=== PATIENT | female | born 1975 | race Two or more races ===

== ENCOUNTER → 2016-12-24 | Outpatient (REF) | payer BC ==
[~2016-12-24] MED LIST: ALIN500T2 PO; [UNRECOGNIZED DRUG - CODE] PO; bcp
[2016-12-24 16:05] LABS: ALBUMIN 3.3 GM/DL (3.2-5.2); ALBUMIN/GLOBULIN RATIO 1.14 (1.00-1.93); ALKALINE PHOSPHATASE 80 U/L (45-117); ALT/SGPT 26 U/L (12-78); AST/SGOT 26 U/L (7-37); BILIRUBIN,DIRECT 0.5 MG/DL (0.0-0.2); BILIRUBIN,TOTAL 1.6 MG/DL (0.2-1.0); IMMUNOGLOBULIN G 1010 MG/DL (681-1648); IMMUNOGLOBULIN M 146 MG/DL (40-230); TOTAL PROTEIN 6.2 GM/DL (6.4-8.2)
[2016-12-28 14:11] LABS: IgG SERUM (part of Subclasses) 933 mg/dL (700-1600); IgG Subclass 1 588 mg/dL (248-810); IgG Subclass 2 314 mg/dL (130-555); IgG Subclass 3 61 mg/dL (15-102); IgG Subclass 4 14 mg/dL (2-96)
== END ==
LOC: M SFHCPLAZ 13:49
PROVIDERS: ATTEND Internal Medicine Infectious Disease
DX: A07.2 Cryptosporidiosis (principal)

== ENCOUNTER 2017-10-25 19:20 | Emergency (ER) | payer BC ==
[2017-10-25] MEDS ORDERED: ACETAMINOPHEN TAB 650MG DOSE (2X325MG) PO (20:30)
[2017-10-25 21:59] LABS: CONTROL LINE UCG INT CTR LINE PRESENT; URINE PREG TEST NEGATIVE (NEGATIVE)
[2017-10-25 22:07] LABS: BASO % 0.4 % (0.0-1.0); EOS # 0.1 10^3/uL (0.0-0.50); HEMATOCRIT 36.3 % (36.0-47.0); HEMOGLOBIN 13.5 g/dl (12.0-15.5); IMMATURE GRANULOCYTE % 0.3 % (0-3.0); LYMPH # 2.1 10^3/uL (1.5-4.5); LYMPH % 29.2 % (24.0-44.0); MEAN CORPUSCULAR HEMOGLOBIN 33.2 pg (27.0-33.0); MEAN CORPUSCULAR VOLUME 89.2 fl (80.0-96.0); MONO # 0.4 10^3/uL (0.0-0.8); MONO % 5.1 % (0.0-5.0); NEUTROPHILS # 4.4 10^3/uL (1.8-7.7); PLATELET COUNT, AUTOMATED 254 10^3/uL (150-450); RED BLOOD COUNT 4.07 10^6/uL (4.00-5.40); RED CELL DISTRIBUTION WIDTH 13.3 % (11.5-14.5)
[2017-10-25 22:35] LABS: MEAN CORPUSCULAR HGB CONC 37.2 g/dl (32.0-36.5)
[2017-10-25 22:40] LABS: ANION GAP 7 MEQ/L (8-16); BLOOD UREA NITROGEN 10 MG/DL (7-18); CALCIUM LEVEL 8.8 MG/DL (8.5-10.1); CARBON DIOXIDE LEVEL 26 MEQ/L (21-32); CHLORIDE LEVEL 108 MEQ/L (98-107); CREATININE FOR GFR 0.57 MG/DL (0.55-1.30); GLOMERULAR FILTRATION RATE > 60.0 (>58); GLUCOSE, FASTING 83 MG/DL (70-100); POTASSIUM SERUM 3.8 MEQ/L (3.5-5.1); SODIUM LEVEL 141 MEQ/L (136-145)
== END 2017-10-26 00:13 | disposition home or self-care (01) ==
LOC: M ED 10-26 00:13
DX: N93.9 Abnormal uterine and vaginal bleeding, unspecified (principal); D25.9 Leiomyoma of uterus, unspecified; N83.202 Unspecified ovarian cyst, left side; M54.5 Low back pain
CPT/HCPCS: 76856

== ENCOUNTER 2018-04-22 10:42 | Day surgery (SDC) | payer BC ==
[~2018-04-22] VITALS: Ht 162.6 cm; Wt 56.2 kg
[~2018-04-22 10:42] MED LIST changes: +ALIN1SUS2 PO; +IBUP-1022 PO; +MULTCAP PO; -[UNRECOGNIZED DRUG - CODE] PO
[2018-04-22 11:19] LABS: URINE PREG TEST NEGATIVE (NEGATIVE)
[2018-04-22 11:29] LABS: HEMATOCRIT 37.3 % (36.0-47.0); HEMOGLOBIN 13.7 g/dl (12.0-15.5); MEAN CORPUSCULAR HEMOGLOBIN 33.3 pg (27.0-33.0); MEAN CORPUSCULAR HGB CONC 36.7 g/dl (32.0-36.5); MEAN CORPUSCULAR VOLUME 90.5 fl (80.0-96.0); PLATELET COUNT, AUTOMATED 252 10^3/uL (150-450); RED BLOOD COUNT 4.12 10^6/uL (4.00-5.40); WHITE BLOOD COUNT 6.3 10^3/uL (4.0-10.0)
[2018-04-22] MEDS ORDERED: LR 1,000 ML IV ONE (11:30)
[2018-04-22] MEDS ORDERED: LIDOCAINE 2% INJ 100 MG/5 ML SDV (FOR ANES.) As Ordered ONE (11:42)
[2018-04-22] MEDS ORDERED: PROPOFOL 200 MG/20 ML VIAL As Ordered ONE (11:42)
[2018-04-22] MEDS ORDERED: MIDAZOLAM INJ 2 MG/2 ML VIAL (J2250) As Ordered ONE (11:43)
[2018-04-22] MEDS ORDERED: fentaNYL 100 MCG/2 ML INJECTION (J3010) As Ordered ONE (11:43)
[2018-04-22] MEDS ORDERED: dexameTHASONE 4 MG/ML 1ML VIAL (J1100) As Ordered ONE (13:20)
[2018-04-22] MEDS ORDERED: ONDANSETRON 4MG/2ML VIAL (J2405) As Ordered ONE (13:20)
[2018-04-22] MEDS ORDERED: METOCLOPRAMIDE INJ 10MG/2ML VIAL (J2765) As Ordered ONE (13:20)
[2018-04-22] MEDS ORDERED: KETOROLAC 60 MG/2 ML VIAL (J1885) As Ordered ONE (13:21)
[2018-04-22] MEDS ORDERED: ONDANSETRON 4MG/2ML VIAL (J2405) IV PRN (14:15)
[2018-04-22] MEDS ORDERED: NORCO, ANEXSIA 5/325MG TABLET (HYDROcodone/ACETAMINOPHEN) PO PRN (14:15)
[2018-04-22] MEDS ORDERED: PERCOCET 5MG/325MG TAB PO PRN (14:15)
[2018-04-22] MEDS ORDERED: LR 1,000 ML IV SCH ×2 (14:15)
[2018-04-22] MEDS ORDERED: fentaNYL 100 MCG/2 ML INJECTION (J3010) IV PRN (14:15)
[2018-04-22 15:00] VITALS: BP 118/68
--- NOTE | 2018-04-22 15:12 | RO ---
DATE OF PROCEDURE: 04/22/2018 PREPROCEDURE DIAGNOSIS: Menorrhagia. POSTPROCEDURE DIAGNOSIS: Menorrhagia. OPERATIVE PROCEDURES: Hysteroscopy, dilation and curettage (D and C), NovaSure endometrial ablation. SURGEON: Medhat Wing MD OPERATIONS EXPERT: ANESTHESIA: General endotracheal. ESTIMATED BLOOD LOSS: Minimal FINDINGS: Normal appearing endometrial cavity. OPERATIVE SUMMARY: Patient taken to the operating room where general endotracheal anesthesia was induced. She was prepped and draped in a sterile fashion in the dorsal lithotomy position. A speculum was placed in the vagina. The anterior lip of the cervix was grasped with a tenaculum and cervix was dilated with tapered dilators. Diagnostic hysteroscope using normal saline as suspension media was placed through the internal os. Visualization of the endometrial cavity revealed the findings noted above. Sharp curettage was performed and specimens of endometrial curettings were sent to pathology. Hysteroscope was removed. The NovaSure device was assembled and found to be in working order. The device was inserted through the internal os. Endometrial cavity length was calculated at 4.0 cm. Endometrial cavity width was 2.5 cm. Total power setting was 77 [place]. Successful cavity assessment was performed. Coagulation was initiated. Total coagulation time was 1 minute 50 seconds. The NovaSure device was removed. The hysteroscope was placed back into the endometrial cavity and excellent coagulation affect was noted with sparing of the cervix. All instruments were removed. Sponge and instrument counts were correct.
[2018-04-22] MEDS ORDERED: OXYC1TAB23 PO (17:55)
== END 2018-04-22 15:04 | disposition home or self-care (01) ==
LOC: M SDC 10:42
PROVIDERS: ATTEND Specialist
DX: N92.0 Excessive and frequent menstruation with regular cycle (principal)
CPT/HCPCS: 36415; 58563; 84703; 85027; 88305; J1100; J1885; J2250; J2405; J2765; J3010

== ENCOUNTER → 2018-05-23 | Outpatient (CLI) | payer BC ==
[~2018-05-23] MED LIST changes: +OXYC1TAB23 PO; +PROHANCE 279.3MG/ML 15ML VIAL (A9576) As Ordered ONE
--- NOTE | 2018-05-27 13:42 | REP ---
MRI ABDOMEN AND LIVER WITHOUT AND WITH IV GADOLINIUM: HISTORY: Benign neoplasm of the liver. Adenoma of the liver, hemangioma of the liver, gallstones. Comparison sonography has been retrieved from [facility] dated November 12, 2017. Comparison MRI study has been retrieved from November 26, 2017, also from [facility]. MR TECHNIQUE: Axial and coronal imaging planes are utilized for T1- and T2-weighted scans. Sequences include spin-echo, fast spin-echo, diffusion, gradient echo, in and [id number], and dynamically acquired sequential post gadolinium enhanced images. The gadolinium enhancement dose is 10 mL of intravenous ProHance. MRI FINDINGS: The liver again demonstrates two focal liver lesions. The right lobe lesion measures 2.3 x 1.9 x 2.4 cm today. It is felt to be unchanged in size. The left lobe lesion measures 3.1 x 2.3 x 2.6 cm. This is felt to be unchanged as well by my measurement on the November 26, 2017 prior study. No new focal liver lesion is appreciated. There is a tiny cyst in the spleen. The liver is not enlarged. The spleen is at the upper range of normal in size measuring 12.8 cm in greatest diameter. This is unchanged. The tiny splenic cyst is unchanged. No adrenal lesion is seen. No renal abnormality is observed. A filling defect is again noted within the gallbladder lumen consistent with gallstone. No pancreatic abnormality is appreciated. Diffusion weighted scans show no additional abnormality. The liver lesions bold show low T1 of and high T2 signal intensity, as before. On dynamically acquired post gadolinium enhanced images with intravenous ProHance, initial arterial phase acquisition shows peripheral centripetal nodular pattern of enhancement in both the left lobe and the right lobe lesion as previously described. The right lobe lesion is largely filled in by 2 minutes. Persistent nodular peripheral discontinuous enhancement is seen in the left lobe lesion on the 2-minute with progressive enhancement. 5- and 10-minute delayed images show nearly complete enhancement of the left lobe lesion and persistent blood pool enhancement in the right lobe lesion. No washout is observed with the ProHance on delayed images. IMPRESSION: Two stable benign liver lesions. On today's MRI study, both lesions are compatible with benign hemangiomas. In any event, they are unchanged, and no new lesion is seen. Cholelithiasis again noted. Electronically Signed by Wiley Bell MD 05/27/2018 08:03 P
== END ==
LOC: M RAD 16:19
PROVIDERS: ATTEND Physician Assistant
DX: D13.4 Benign neoplasm of liver (principal); D18.03 Hemangioma of intra-abdominal structures; K80.20 Calculus of gallbladder without cholecystitis without obstruction
CPT/HCPCS: 74183; A9576

== ENCOUNTER → 2020-12-17 | Outpatient (CLI) | payer BC ==
[~2020-12-17] MED LIST changes: -PROHANCE 279.3MG/ML 15ML VIAL (A9576) As Ordered ONE
--- NOTE | 2020-12-18 19:14 | SLEEPHOME ---
DATE: 12/17/2020 ORDERED BY: SACHIN Arreola Diagnostic home sleep testing was performed due to concern for the obstructive sleep apnea syndrome in this patient with a history of snoring. For testing, a Nox T3 respiratory monitoring device was used. Continuous record was made of pulse, oxygen saturation, air flow, chest and abdominal strain, and body position. Nine hours and 59 minutes of data were reviewed. There were 7 hours and 12 minutes marked as time in bed. During the interval marked time in bed, there were only 15 respiratory events identified of 10 seconds in duration or greater for a respiratory event index of 2.1. The events were more frequent in the supine posture. Baseline pulse rate was 70 beats per minute. Pulse rate ranged 56 to 99. Baseline saturation was 96%. Lowest oxygen saturation recorded was 91%. Testing was performed in both the supine and nonsupine positions. IMPRESSION: Equivocal diagnostic home sleep test with minor respiratory patterning in the supine position. RECOMMENDATION: Sleep position for avoidance of the supine posture may be helpful. Should sleep symptoms persist or worsen, referral for in-laboratory nocturnal polysomnography is more sensitive to identify mild apneic disease. cc: ROLANDA SHEIKH MD
== END ==
LOC: M SLEEP HO 11:59
PROVIDERS: ATTEND Nurse Practitioner Family
DX: R06.83 Snoring (principal)

== ENCOUNTER 2021-01-06 10:19 | Emergency (ER) | payer BC ==
[~2021-01-06] VITALS: Ht 162.6 cm; Wt 55.0 kg
[2021-01-06 10:20] VITALS: BP 130/71
--- OUTSIDE RECORDS SUMMARY | 2021-01-06 10:26 | CCD | Clinical Summary ---
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 [employer] Name Role Phone [facility] Unavailable [phone] Deidre VENTURA, Bashir Unavailable [phone] Melanie SAFETY NET MAKER, Rebecca PP [phone] [facility] Unavailable [phone] Reason for Referral No Reason for Referral Recorded Reason for Visit and Chief Complaint Chart Update Problems Includes: Problems addressed during this encounter and other active Problems All Visits Onset Date - Time Resolved Date - Time Provider Co ndition Status Risk: Obstructive Sleep Apnea Syndrome 08/13/2020 - 9:29AM Mary L Ray DO Active Hypertrophy of Breast 07/11/2020 - 6:37PM Mary L Ray DO Active Hyperlipidemia 07/11/2020 - 6:13PM Mary L Ray DO Act marek Acrochordon 12/27/2019 - 12:00AM Mary L Ray DO Acti ve Fatigue 01/03/2019 - 12:00AM Mary L Ray DO Acti ve Arthralgias Multiple Sites 01/03/2019 - 12:00AM Mary L Ray DO Active Note: following with [facility] see 01/20/19 note; rheumatology note 08/23/19 states no clear autoimmune disorder despite pos SUAD Cholelithiasis Without Cholecystitis 12/26/2018 - 12:00AM Jane Asher NP Active Note: seen on U/S 12/26/18; up to 9mm. Fatty Liver 12/26/2018 - 12:00AM Jane Asher NP Act marek Renal Neoplasm Benign Angiomyolipoma 12/26/2018 - 12:00AM Jane Asher SAFETY NET MAKER Active Note: right kidney seen on U /S/ 12/26/18 Rectal Bleeding 07/07/2018 - 12:00AM Mary L Ray DO A ctive Dysfunctional Uterine Bleeding 12/03/2017 - 12:00AM Am mikaela L Ray DO Active Uterine Neoplasm, Benign - Leiomyoma 12/03/2017 - 12:00AM Mary L Ray DO Active Liver Neoplasm, Benign - Hepatic Adenoma 11/26/2017 - 12:00AM Mary L Ray DO Active Note: 2 cm x 2 cm right lobe liver seen on MRI 11/26/17, U/S done 12/26/18 shows 2 right lobe lesions: 3.1x3.4x2.1cm and 2.4w2g6dm; 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; last US of liver showed stable adenoma and hemangioma 12/13/19, followed by GI yearly Hemangioma Intra-abdominal Structures 11/26/2017 - 12:00AM Mary L Ray DO Active Note: 2.6 x 2 cm left lobe l iver seen on MRI 11/26/17 Ovarian Cyst Left 11/10/2017 - 12:00AM Mary L Ray DO Active Note: seen on sono from Ryann moreira ordered 10/25/17 by outside provider, one is 5cm and one is 3cm; needs [employer] follow-up Screen Malignant Neoplasm Cervix 09/17/2016 - 12:00AM Mary L Ray DO Active Note: last pap 09/17/16; needs repeat in 5 years Visit For: Screening Exam For Human Papillomavirus (Hpv) 017 - 12:00AM Mary L Ray DO Active Dysplastic Nevus 06/05/2016 - 12:00AM Mary L Ray DO Active Acne 04/23/2016 - 12:00AM Mary L Ray DO Acti ve Note: treated by derm for ad ult acne Vitamin D Deficiency 04/23/2016 - 12:00AM Mary L Ray DO Active Warts Verruca 04/23/2016 - 12:00AM Mary L Ray DO Act marek Visit For: Screening Exam Malignant Neoplasm Breast 04/23/2016 - 12:00AM Mary L Ray DO Active Note: needs annual MRI breas t w/ mammo due to fam Hx in Sept Plan of Treatment Future Appointments Date Time Location Provider H Adult Prophy 03/07/2021 4:15PM [facility] Jennifer Bryan Jil doreen [facility] 07/15/2021 7:00PM [facility] Rebecca bello SAFETY NET MAKER Assessments Includes: Assessments from this encounterNo Assessments Recorded Instructions Includes: Instructions from this encounterNo Instructions Recorded Medical Equipment - Implanted Devices Includes: Current DevicesNo Medical Equipment Recorded Medications Includes: Medications discussed during this encounter and other current Medicati ons Current Medications (continue as prescribed) Clindamycin Phosphate 1% External Gel 10/30/2020 - Provider: Marie Robles NP Diagnosis: as directed; apply topically to face once daily Collagen Hydrolysate (Bovine) Powder 08/22/2020 Pro vider: Diagnosis: QC Tumeric Complex 500 MG Oral Capsule 08/22/2020 P rovider: Diagnosis: Benzoyl Peroxide 5% External Gel 04/04/2020 Provide r: Mary Valdez DO Diagnosis: as directed; apply topically to face once daily Medications Administered Includes: Administered Medications from this encounterNo Administered Medications Recorded Vital Signs Includes: Vital Signs from this encounterNo Vital Signs Recorded For Specified Dates Results Includes: Results discussed during this encounterNo Results Recorded For Specified Dates History of Present Illness Includes: History of Present Illness from this encounterNo History of Present Illness Recorded Social History No Social History Recorded - Smoking Status Unknown Procedures and Surgical History Includes: Procedures from this encounterNo Procedures For Specified Dates. No Surgical History Recorded Medical History Includes: Medical History addressed during this encounterNo Medical History Recorded Family History Includes: Family History addressed during this encounterNo Family History Recorded Review of Systems Includes: Review of Systems from this encounterNo Review of Systems Recorded Mental Status Includes: Mental Status from this encounterNo Mental Status Recorded Functional Status Includes: Functional Status from this encounterNo Functional Status Recorded Physical Exam Includes: Physical Exam from this encounterNo Physical Exam Recorded Immunizations Includes: Immunizations addressed during this encounterNo Immunizations Recorded Allergies Includes: Active AllergiesNo Known Allergies Encounters Encounter Provider Location Date Check-In Time Check-Out Time D iagnosis Chart Update Ashanti Jacobs RN 11/14/2020 1:59PM 11:59PM Insurance Includes: Active Insurance Policies Plan Name Member ID Group # Subscriber Relationship Effective Da emely 1 - [employer] bs [phone] [id number] Jaime Pierson D 02/15/2017 - Unknown 2 - D Principal [id number] Jaime Pierson Advance Directives Includes: Current Advance Directives Directive Pat Aware Third Democrat Effective Date Reviewed Status packet given Pt Bill of Rights, Priv Prac, Ad Dir Yes 07/07/2018 Current and Verified Note: Pt declined AD packet Ebola Screening Performed Yes 11/16/2019 Current and Verified Note: Within the last month, have you traveled outside of the [place]? - NO Health Concerns Includes: Health Concerns addressed during this encounterNo Active Health Concerns Recorded Goals Includes: Goals addressed during this encounterNo Active Goals Recorded Interventions Includes: Interventions addressed during this encounterNo Interventions Recorded Evaluations & Outcomes Includes: Evaluations & Outcomes addressed during this encounterNo Outcomes Recorded
--- OUTSIDE RECORDS SUMMARY | 2021-01-06 10:26 | CCD | Continuity of Care Document ---
Author Arely Lopez N.PHoney Organization Unknown Address [address] [place] [address] Phone [phone] Care Team Providers Care District Service Manager Name Role Phone Mary Valdez D.O. AUT[facility] [phone] [facility] Unavailable Problems Description No Information Available Social History Type Date Description Comments Sex Unknown ETOH Use 1 A Month Tobacco Use Start: Unknown Non Smoker Smoking Status Reviewed: 11/26/20 Non Smoker Exercise Type/Frequency walking, hiking Allergies and adverse reactions Description No Known Drug Allergies Medications Active Medications SIG Qnty Indications Ordering Provide r Date Collagen Ultra Capsules 1 tab by mouth every day Unknown Immunizations Description No Information Available Vital Signs Date Vital Result Comment 11/26/2020 8:05am BP Systolic 116 mmHg BP Diastolic 64 mmHg Heart Rate 77 /min O2 % BldC Oximetry 100 % Height 64 inches 5'4" Weight 124.50 lb BMI (Body Mass Index) 21.4 kg/m2 [place] Body Weight 120 lb Neck Circumference in inches 13 Montgomery Score 5 Weight 56.473 kg BSA (Body Surface Area) 1.60 m2 05/06/2018 10:51am BP Systolic 102 mmHg BP Diastolic 82 mmHg Height 64 inches 5'4" Weight 127.00 lb BMI (Body Mass Index) 21.8 kg/m2 [place] Body Weight 120 lb Weight 57.607 kg BSA (Body Surface Area) 1.61 m2 Results Description No Information Available Procedures Date Code Description Status 11/26/2020 21376 Office/Outpatient New Low MDM 30 -44 Minutes Completed Medical Devices Description No Information Available Encounters Type Date Location Provider Dx Diagnosis Office Visit 11/26/2020 8:00a [facility] Kayley Chung, N.P. R06.83 Snoring R40.0 Somnolence Assessments Date Code Description Provider 11/26/2020 R06.83 Snoring Katie Chung N .Joshua 11/26/2020 R40.0 Somnolence Katie Chung N Lien Plan of Treatment Future Appointment(s):* 01/15/2021 9:45 am - Katie Chung N.P. at [facility] * 12/16/2020 8:00 pm - [facility] 11/26/2020 - Katie Chung NGarry.* R06.83 Snoring * R40.0 Somnolence * * New Orders:* Sleep Home Sleep Test, Ordered: 11/26/20 * Comments:* - For evaluation of sleep apnea syndrome symptoms, home sleep test will be arranged. - We have discussed what is to be expected during a home sleep test. * Follow up:* 1. Follow up after testing. Functional Status Description No Information Available Mental Status Description No Information Available Referrals Refer to Reason for Referral Status Appt Date Katie Chung F.N.P. ? THANH Scheduled 11/26/2020 [facility] [address] [place], [place] [address] [phone]
--- OUTSIDE RECORDS SUMMARY | 2021-01-06 10:27 | CCD ---
Author Author [facility] Organization [facility] Address Unknown Phone Unavailable Care Team Providers Care Production Supply Equipment Tender Name Role Phone Giovanna HUITRON MD Unavailable Unavailable Giovanna HUITRON MD Unavailable Unavailable Giovanna HUITRON MD Unavailable Unavailable Giovanna HUITRON MD Unavailable Unavailable Giovanna HUITRON MD Unavailable Unavailable Giovanna HUITRON MD Unavailable Unavailable Giovanna HUITRON MD Unavailable Unavailable Giovanna HUITRON MD Unavailable Unavailable Giovanna HUITRON MD Unavailable Unavailable Giovanna HUITRON MD Unavailable Unavailable Giovanna HUITRON MD Unavailable Unavailable Giovanna HUITRON MD Unavailable Unavailable Giovanna HUITRON MD Unavailable Unavailable Giovanna HUITRON MD Unavailable Unavailable Giovanna HUITRON MD Unavailable Unavailable Giovanna HUITRON MD Unavailable Unavailable Giovanna HUITRON MD Unavailable Unavailable Giovanna HUITRON MD Unavailable Unavailable Giovanna HUITRON MD Unavailable Unavailable Giovanna HUITRON MD Unavailable Unavailable Giovanna HUITRON MD Unavailable Unavailable Giovanna HUITRON MD Unavailable Unavailable TOMY, K LONA VENTURA Unavailable Unavailable TOMY, K LONA VENTURA Unavailable Unavailable TOMY, K LONA VENTURA Unavailable Unavailable TOMY, K LONA VENTURA Unavailable Unavailable TOMY, K LONA VENTRUA Unavailable Unavailable TOMY, K LONA VENTURA Unavailable Unavailable TOMY, K LONA VENTURA Unavailable Unavailable TOMY, K LONA VENTURA Unavailable Unavailable TOMY, K LONA VENTURA Unavailable Unavailable TOMY, K LONA VENTURA Unavailable Unavailable TOMY, K LONA VENTURA Unavailable Unavailable TOMY, K LONA VENTURA Unavailable Unavailable TOMY, K LONA VENTURA Unavailable Unavailable TOMY, K LONA VENTURA Unavailable Unavailable TOMY, K LONA VENTURA Unavailable Unavailable TOMY, K LONA VENTURA Unavailable Unavailable TOMY, K LONA VENTURA Unavailable Unavailable TOMY, K LONA VENTURA Unavailable Unavailable TOMY, K LONA VENTURA Unavailable Unavailable OTMY, K LOAN VENTURA Unavailable Unavailable TOMY, K LONA VENTURA Unavailable Unavailable TOMY, K OLNA VENTURA Unavailable Unavailable TOMY, K LONA VENTURA Unavailable Unavailable TOMY, K LONA VENTURA Unavailable Unavailable TOMY, K LONA VENTURA Unavailable Unavailable TOMY, K LONA VENTURA Unavailable Unavailable TOMY, K LONA VENTURA Unavailable Unavailable TOMY, K LONA VENTURA Unavailable Unavailable TOMY, K LONA VENTURA Unavailable Unavailable TOMY, K LONA VENTURA Unavailable Unavailable TOMY, K LONA VENTURA Unavailable Unavailable TOMY, K LONA VENTURA Unavailable Unavailable TOMY, K LONA VENTURA Unavailable Unavailable TOMY, K LONA VENTURA Unavailable Unavailable TOMY, Giovanna ZAMORANO MD Unavailable Unavailable Ray, L Mary DO Unavailable Unavailable Ray, L Mary DO Unavailable Unavailable Ray, L Mary DO Unavailable Unavailable Ray, L Mary DO Unavailable Unavailable Ray, L Mary DO Unavailable Unavailable Ray, L Mary DO Unavailable Unavailable Ray, L Mary DO Unavailable Unavailable Ray, L Mary DO Unavailable Unavailable Ray, L Mary DO Unavailable Unavailable Ray, L Mary DO Unavailable Unavailable Ray, L Mary DO Unavailable Unavailable Ray, L Mary DO Unavailable Unavailable Ray, L Amry DO Unavailable Unavailable Ray, L Mary DO Unavailable Unavailable Ray, L Mary DO Unavailable Unavailable Ray, L Mary DO Unavailable Unavailable Ray, L Mary DO Unavailable Unavailable Ray, L Mary DO Unavailable Unavailable Ray, L Mary DO Unavailable Unavailable Ray, L Mary DO Unavailable Unavailable Ray, L Mary DO Unavailable Unavailable Ray, L Mary DO Unavailable Unavailable Ray, L Mary DO Unavailable Unavailable Ray, L Mary DO Unavailable Unavailable Ray, L Mary DO Unavailable Unavailable Ray, L Mary DO Unavailable Unavailable Ray, L Mary DO Unavailable Unavailable Ray, L Mary DO Unavailable Unavailable Ray, L Mary DO Unavailable Unavailable Ray, L Mary DO Unavailable Unavailable Ray, L Mary DO Unavailable Unavailable Ray, L Mary DO Unavailable Unavailable Ray, L Mary DO Unavailable Unavailable Ray, L Mary DO Unavailable Unavailable Ray, L Mary DO Unavailable Unavailable Ray, L Mary DO Unavailable Unavailable Ray, L Mary DO Unavailable Unavailable Ray, L Mary DO Unavailable Unavailable Ray, L Mary DO Unavailable Unavailable Ray, L Mary DO Unavailable Unavailable Ray, L Mary DO Unavailable Unavailable Ray, L Mary DO Unavailable Unavailable Ray, L Mary DO Unavailable Unavailable Ray, L Mary DO Unavailable Unavailable Ray, L Mary DO Unavailable Unavailable Ray, L Mary DO Unavailable Unavailable Ray, L Mary DO Unavailable Unavailable Ray, L Mary DO Unavailable Unavailable Ray, L Mary DO Unavailable Unavailable Ray, L Mary DO Unavailable Unavailable Ray, L Mary DO Unavailable Unavailable Ray, L Mary DO Unavailable Unavailable Ray, L Mary DO Unavailable Unavailable Ray, L Mary DO Unavailable Unavailable Ray, L Mary DO Unavailable Unavailable Ray, L Mary DO Unavailable Unavailable Ray, L Mary DO Unavailable Unavailable Ray, L Mary DO Unavailable Unavailable Ray, L Mary DO Unavailable Unavailable Ray, L Mary DO Unavailable Unavailable Ray, L Mary DO Unavailable Unavailable Ray, L Mary DO Unavailable Unavailable Ray, L Mary DO Unavailable Unavailable Ray, L Mary DO Unavailable Unavailable Ray, L Mary DO Unavailable Unavailable Ray, L Mary DO Unavailable Unavailable Ray, L Mary DO Unavailable Unavailable Ray, L Mary DO Unavailable Unavailable Ray, L Mary DO Unavailable Unavailable Ray, L Mary DO Unavailable Unavailable Ray, L Mary DO Unavailable Unavailable Ray, L Mary DO Unavailable Unavailable Ray, L Mary DO Unavailable Unavailable Ray, L Mary DO Unavailable Unavailable Ray, L Mary DO Unavailable Unavailable KANE, MONE OCHOA JUNIOR MECHANICAL ENGINEER-C Unavailable Unavailable KANE, MONE OCHOA JUNIOR MECHANICAL ENGINEER-C Unavailable Unavailable KANE, MONE OCHOA JUNIOR MECHANICAL ENGINEER-C Unavailable Unavailable KANE, MONE OCHOA JUNIOR MECHANICAL ENGINEER-C Unavailable Unavailable KANE, MONE OCHOA JUNIOR MECHANICAL ENGINEER-C Unavailable Unavailable KANE, MONE OCHOA JUNIOR MECHANICAL ENGINEER-C Unavailable Unavailable KANE, MONE OCHOA JUNIOR MECHANICAL ENGINEER-C Unavailable Unavailable KANE, MONE OCHOA JUNIOR MECHANICAL ENGINEER-C Unavailable Unavailable KANE, MONE OCHOA JUNIOR MECHANICAL ENGINEER-C Unavailable Unavailable KANE, MONE OCHOA JUNIOR MECHANICAL ENGINEER-C Unavailable Unavailable KANE, MONE OCHOA JUNIOR MECHANICAL ENGINEER-C Unavailable Unavailable KANE, MONE OCHOA JUNIOR MECHANICAL ENGINEER-C Unavailable Unavailable KANE, MONE OCHOA JUNIOR MECHANICAL ENGINEER-C Unavailable Unavailable KANE, MONE OCHOA JUNIOR MECHANICAL ENGINEER-C Unavailable Unavailable KANE, MONE OCHOA JUNIOR MECHANICAL ENGINEER-C Unavailable Unavailable KANE, MONE OCHOA JUNIOR MECHANICAL ENGINEER-C Unavailable Unavailable KANE, MONE OCHOA JUNIOR MECHANICAL ENGINEER-C Unavailable Unavailable Ray, L Mary DO Unavailable Unavailable Ray, L Mary DO Unavailable Unavailable Ray, L Mary DO Unavailable Unavailable Ray, L Mary DO Unavailable Unavailable Ray, L Mary DO Unavailable Unavailable Ray, L Mary DO Unavailable Unavailable Ray, L Mary DO Unavailable Unavailable Ray, L Mary DO Unavailable Unavailable Ray, L Mary DO Unavailable Unavailable Ray, L Mary DO Unavailable Unavailable Ray, L Mary DO Unavailable Unavailable Ray, L Mary DO Unavailable Unavailable Ray, L Mary DO Unavailable Unavailable Ray, L Mary DO Unavailable Unavailable Ray, L Mary DO Unavailable Unavailable Ray, L Mary DO Unavailable Unavailable Ray, L Mary DO Unavailable Unavailable Ray, L Mary DO Unavailable Unavailable Ray, L Mary DO Unavailable Unavailable Ray, L Mary DO Unavailable Unavailable Ray, L Mary DO Unavailable Unavailable Ray, L Mary DO Unavailable Unavailable Ray, L Mary DO Unavailable Unavailable Ray, L Mary DO Unavailable Unavailable Ray, L Mary DO Unavailable Unavailable Ray, L Mary DO Unavailable Unavailable Ray, L Mary DO Unavailable Unavailable Ray, L Mary DO Unavailable Unavailable Ray, L Mary DO Unavailable Unavailable Ray, L Mary DO Unavailable Unavailable Ray, L Mary DO Unavailable Unavailable Ray, L Mary DO Unavailable Unavailable Ray, L Mary DO Unavailable Unavailable Ray, L Mary DO Unavailable Unavailable Ray, L Mary DO Unavailable Unavailable Ray, L Mary DO Unavailable Unavailable Ray, L Mary DO Unavailable Unavailable Ray, L Mary DO Unavailable Unavailable Ray, L Mary DO Unavailable Unavailable Ray, L Mary DO Unavailable Unavailable Ray, L Mary DO Unavailable Unavailable Ray, L Mary DO Unavailable Unavailable Ray, L Mary DO Unavailable Unavailable Ray, L Mary DO Unavailable Unavailable Ray, L Mary DO Unavailable Unavailable Ray, L Mary DO Unavailable Unavailable Ray, L Mary DO Unavailable Unavailable Ray, L Mary DO Unavailable Unavailable Ray, L Mary DO Unavailable Unavailable Ray, L Mary DO Unavailable Unavailable Ray, L Mary DO Unavailable Unavailable Ray, L Mary DO Unavailable Unavailable Ray, L Mary DO Unavailable Unavailable Ray, L Mary DO Unavailable Unavailable Ray, L Mary DO Unavailable Unavailable Ray, L Mary DO Unavailable Unavailable Ray, L Mary DO Unavailable Unavailable Ray, L Mary DO Unavailable Unavailable Ray, L Mary DO Unavailable Unavailable Ray, L Mary DO Unavailable Unavailable Ray, L Mary DO Unavailable Unavailable Ray, L Mary DO Unavailable Unavailable Ray, L Mary DO Unavailable Unavailable Ray, L Mary DO Unavailable Unavailable Ray, L Mary DO Unavailable Unavailable Ray, L Mary DO Unavailable Unavailable Ray, L Mary DO Unavailable Unavailable Ray, L Mary DO Unavailable Unavailable Ray, L Mary DO Unavailable Unavailable Ray, L Mary DO Unavailable Unavailable Ray, L Mary DO Unavailable Unavailable Ray, L Mary DO Unavailable Unavailable Ray, L Mary DO Unavailable Unavailable Ray, L Mary DO Unavailable Unavailable Ray, L Mary DO Unavailable Unavailable Darline BAL MD Unavailable Unavailable Darline BAL MD Unavailable Unavailable Darline BAL MD Unavailable Unavailable Darline BAL MD Unavailable Unavailable Darline BAL MD Unavailable Unavailable Darline BAL MD Unavailable Unavailable Darline BAL MD Unavailable Unavailable Darline BAL MD Unavailable Unavailable Darline BAL MD Unavailable Unavailable Darline BAL MD Unavailable Unavailable Darline BAL MD Unavailable Unavailable Darline BAL MD Unavailable Unavailable Darline BAL MD Unavailable Unavailable Darline BAL MD Unavailable Unavailable Darline BAL MD Unavailable Unavailable Darline BAL MD Unavailable Unavailable Darline BAL MD Unavailable Unavailable Darline BAL MD Unavailable Unavailable Darline BAL MD Unavailable Unavailable Darline BAL MD Unavailable Unavailable Darline BAL MD Unavailable Unavailable Darline BAL MD Unavailable Unavailable Darline BAL MD Unavailable Unavailable Darline BAL MD Unavailable Unavailable Darline BAL MD Unavailable Unavailable Darline BAL MD Unavailable Unavailable Darline BAL MD Unavailable Unavailable Darline BAL MD Unavailable Unavailable Darline BAL MD Unavailable Unavailable Darline BAL MD Unavailable Unavailable Darline BAL MD Unavailable Unavailable Darline BAL MD Unavailable Unavailable Darline BAL MD Unavailable Unavailable Darline BAL MD Unavailable Unavailable Darline BAL MD Unavailable Unavailable Darline BAL MD Unavailable Unavailable Darline BAL MD Unavailable Unavailable Darline BAL MD Unavailable Unavailable Darline BAL MD Unavailable Unavailable Darline BAL MD Unavailable Unavailable Darline BAL MD Unavailable Unavailable Darline BAL MD Unavailable Unavailable Darline BAL MD Unavailable Unavailable Darline BAL MD Unavailable Unavailable Darline BAL MD Unavailable Unavailable Darline BAL MD Unavailable Unavailable Darline BAL MD Unavailable Unavailable Darline BAL MD Unavailable Unavailable Darline BAL MD Unavailable Unavailable Darline BAL MD Unavailable Unavailable Darline BAL MD Unavailable Unavailable Darline BAL MD Unavailable Unavailable Darline BAL MD Unavailable Unavailable Darline BAL MD Unavailable Unavailable Darline BAL MD Unavailable Unavailable Darline BAL MD Unavailable Unavailable Darline BAL MD Unavailable Unavailable Darline BAL MD Unavailable Unavailable Darline BAL MD Unavailable Unavailable Darline BAL MD Unavailable Unavailable Darline BAL MD Unavailable Unavailable Darline BAL MD Unavailable Unavailable Darline BAL MD Unavailable Unavailable Darline BAL MD Unavailable Unavailable Darline BAL MD Unavailable Unavailable Darline BAL MD Unavailable Unavailable Darline BAL MD Unavailable Unavailable Darline BAL MD Unavailable Unavailable Darline BAL MD Unavailable Unavailable Darline BAL MD Unavailable Unavailable Darline BAL MD Unavailable Unavailable Darline BAL MD Unavailable Unavailable Darline BAL MD Unavailable Unavailable Darline BAL MD Unavailable Unavailable Darline BAL MD Unavailable Unavailable Darline BAL MD Unavailable Unavailable Darline BAL MD Unavailable Unavailable Darline BAL MD Unavailable Unavailable Darline BAL MD Unavailable Unavailable Darline BAL MD Unavailable Unavailable Darline BAL MD Unavailable Unavailable Darline BAL MD Unavailable Unavailable Darline BAL MD Unavailable Unavailable Darline BAL MD Unavailable Unavailable Darlnie BAL MD Unavailable Unavailable Darline BAL MD Unavailable Unavailable Darline BAL MD Unavailable Unavailable Darline BAL MD Unavailable Unavailable Darline BAL MD Unavailable Unavailable Darline BAL MD Unavailable Unavailable Darline BAL MD Unavailable Unavailable Darline BAL MD Unavailable Unavailable Darline BAL MD Unavailable Unavailable Darline BAL MD Unavailable Unavailable Darline BAL MD Unavailable Unavailable Darline BAL MD Unavailable Unavailable Darline BAL MD Unavailable Unavailable Houston, J Ochoa SALES PRODUCER Unavailable Unavailable Houston, J Ochoa SALES PRODUCER Unavailable Unavailable Houston, J Ochoa SALES PRODUCER Unavailable Unavailable Houston, J Ochoa SALES PRODUCER Unavailable Unavailable Houston, J Ochoa SALES PRODUCER Unavailable Unavailable [place], J Ochoa SALES PRODUCER Unavailable Unavailable [place], J Ochoa SALES PRODUCER Unavailable Unavailable [place], J Ochoa SALES PRODUCER Unavailable Unavailable [place], J Ochoa SALES PRODUCER Unavailable Unavailable [place], J Ochoa SALES PRODUCER Unavailable Unavailable Ray, L Mary DO Unavailable Unavailable Ray, L Mary DO Unavailable Unavailable Ray, L Mary DO Unavailable Unavailable Ray, L Mary DO Unavailable Unavailable Ray, L Mary DO Unavailable Unavailable Ray, L Mary DO Unavailable Unavailable Ray, L Mary DO Unavailable Unavailable Ray, L Mary DO Unavailable Unavailable Ray, L Mary DO Unavailable Unavailable Ray, L Mary DO Unavailable Unavailable Ray, L Mary DO Unavailable Unavailable Ray, L Mary DO Unavailable Unavailable Ray, L Mary DO Unavailable Unavailable Ray, L Mary DO Unavailable Unavailable Ray, L Mary DO Unavailable Unavailable Ray, L Mary DO Unavailable Unavailable Ray, L Mary DO Unavailable Unavailable Ray, L Mary DO Unavailable Unavailable Ray, L Mary DO Unavailable Unavailable Ray, L Mary DO Unavailable Unavailable Ray, L Mary DO Unavailable Unavailable Ray, L Mary DO Unavailable Unavailable Ray, L Mary DO Unavailable Unavailable Ray, L Mary DO Unavailable Unavailable Ray, L Mary DO Unavailable Unavailable Ray, L Mary DO Unavailable Unavailable Ray, L Mary DO Unavailable Unavailable Ray, L Mary DO Unavailable Unavailable Ray, L Mary DO Unavailable Unavailable Ray, L Mary DO Unavailable Unavailable Ray, L Mary DO Unavailable Unavailable Ray, L Mary DO Unavailable Unavailable Ray, L Mray DO Unavailable Unavailable Ray, L Mary DO Unavailable Unavailable Ray, L Mary DO Unavailable Unavailable Ray, L Mary DO Unavailable Unavailable Ray, L Mary DO Unavailable Unavailable Ray, L Mary DO Unavailable Unavailable Ray, L Mary DO Unavailable Unavailable Ray, L Mary DO Unavailable Unavailable Ray, L Mary DO Unavailable Unavailable Ray, L Mary DO Unavailable Unavailable Ray, L Mary DO Unavailable Unavailable Ray, L Mary DO Unavailable Unavailable Ray, L Mary DO Unavailable Unavailable Ray, L Mary DO Unavailable Unavailable Ray, L Mary DO Unavailable Unavailable Ray, L Mary DO Unavailable Unavailable Ray, L Mary DO Unavailable Unavailable Ray, L Mary DO Unavailable Unavailable Ray, L Mary DO Unavailable Unavailable Ray, L Mary DO Unavailable Unavailable Ray, L Mary DO Unavailable Unavailable Ray, L Mary DO Unavailable Unavailable Ray, L Mary DO Unavailable Unavailable Ray, L Mary DO Unavailable Unavailable Ray, L Mary DO Unavailable Unavailable Ray, L Mary DO Unavailable Unavailable Ray, L Mary DO Unavailable Unavailable Ray, L Mary DO Unavailable Unavailable Ray, L Mary DO Unavailable Unavailable Ray, L Mary DO Unavailable Unavailable Ray, L Mary DO Unavailable Unavailable Ray, L Mary DO Unavailable Unavailable Ray, L Mary DO Unavailable Unavailable Ray, L Mary DO Unavailable Unavailable Ray, L Mary DO Unavailable Unavailable Ray, L Mary DO Unavailable Unavailable Ray, L Mary DO Unavailable Unavailable Ray, L Mary DO Unavailable Unavailable Ray, L Mary DO Unavailable Unavailable Ray, L Mary DO Unavailable Unavailable Ray, L Mary DO Unavailable Unavailable Ray, L Mary DO Unavailable Unavailable Ray, L Mary DO Unavailable Unavailable BERNADINE Jacobs, Ashanti Unavailable Duca, A Jennifer SALES PRODUCER-C Unavailable Unavailable Duca, A Jennifer SALES PRODUCER-C Unavailable Unavailable Duca, A Jennifer SALES PRODUCER-C Unavailable Unavailable Duca, A Jennifer SALES PRODUCER-C Unavailable Unavailable Duca, A Jennifer SALES PRODUCER-C Unavailable Unavailable Duca, A Jennifer SALES PRODUCER-C Unavailable Unavailable Duca, A Jennifer SALES PRODUCER-C Unavailable Unavailable Duca, A Jennifer SALES PRODUCER-C Unavailable Unavailable Duca, A Jennifer SALES PRODUCER-C Unavailable Unavailable Duca, A Jennifer SALES PRODUCER-C Unavailable Unavailable Duca, A Jennifer SALES PRODUCER-C Unavailable Unavailable Duca, A Jennifer SALES PRODUCER-C Unavailable Unavailable Duca, A Jennifer SALES PRODUCER-C Unavailable Unavailable Duca, A Jennifer SALES PRODUCER-C Unavailable Unavailable Duca, A Jennifer SALES PRODUCER-C Unavailable Unavailable Duca, A Jennifer SALES PRODUCER-C Unavailable Unavailable Duca, A Jennifer SALES PRODUCER-C Unavailable Unavailable Duca, A Jennifre SALES PRODUCER-C Unavailable Unavailable Duca, A Jennifer SALES PRODUCER-C Unavailable Unavailable Duca, A Jennifer SALES PRODUCER-C Unavailable Unavailable Duca, A Jennifer SALES PRODUCER-C Unavailable Unavailable Duca, A Jennifer SALES PRODUCER-C Unavailable Unavailable Duca, A Jennifer SALES PRODUCER-C Unavailable Unavailable Duca, A Jennifer SALES PRODUCER-C Unavailable Unavailable Duca, A Jennifer SALES PRODUCER-C Unavailable Unavailable Duca, A Jennifer SALES PRODUCER-C Unavailable Unavailable Duca, A Jennifer SALES PRODUCER-C Unavailable Unavailable Duca, A Jennifer SALES PRODUCER-C Unavailable Unavailable Duca, A Jennifer SALES PRODUCER-C Unavailable Unavailable Duca, A Jennifer SALES PRODUCER-C Unavailable Unavailable Duca, A Jennifer SALES PRODUCER-C Unavailable Unavailable Duca, A Jennifer SALES PRODUCER-C Unavailable Unavailable Duca, A Jennifer SALES PRODUCER-C Unavailable Unavailable Duca, A Jennifer SALES PRODUCER-C Unavailable Unavailable Duca, A Jennifer SALES PRODUCER-C Unavailable Unavailable Duca, A Jennifer SALES PRODUCER-C Unavailable Unavailable Duca, A Jennifer SALES PRODUCER-C Unavailable Unavailable Duca, A Jennifer SALES PRODUCER-C Unavailable Unavailable Bal, Sami PA Unavailable Unavailable Bal, Sami PA Unavailable Unavailable Bal, Sami PA Unavailable Unavailable Bla, Sami PA Unavailable Unavailable Bal, Sami PA Unavailable Unavailable Bal, Sami PA Unavailable Unavailable Bal, Sami PA Unavailable Unavailable Bal, Sami PA Unavailable Unavailable Bal, Sami PA Unavailable Unavailable Bal, Sami PA Unavailable Unavailable Bal, Sami PA Unavailable Unavailable Bal, Sami PA Unavailable Unavailable Bal, Sami PA Unavailable Unavailable Bal, Sami PA Unavailable Unavailable Bal, Sami PA Unavailable Unavailable Bal, Sami PA Unavailable Unavailable Bal, Sami PA Unavailable Unavailable Bal, Sami PA Unavailable Unavailable Bal, Sami PA Unavailable Unavailable Bal, Sami PA Unavailable Unavailable Bal, Sami PA Unavailable Unavailable Bal, Sami PA Unavailable Unavailable Bal, Sami PA Unavailable Unavailable Bal, Sami PA Unavailable Unavailable Bal, Sami PA Unavailable Unavailable Bal, Sami PA Unavailable Unavailable Bal, Sami PA Unavailable Unavailable Bal, Sami PA Unavailable Unavailable Bal, Sami PA Unavailable Unavailable Bal, Sami PA Unavailable Unavailable Bal, Sami PA Unavailable Unavailable Bal, Sami PA Unavailable Unavailable Bal, Sami PA Unavailable Unavailable Bal, Sami PA Unavailable Unavailable Bal, Sami PA Unavailable Unavailable Bal, Sami PA Unavailable Unavailable Bal, Sami PA Unavailable Unavailable Bal, Sami PA Unavailable Unavailable Bal, Sami PA Unavailable Unavailable Bal, Sami PA Unavailable Unavailable Bal, Sami PA Unavailable Unavailable Bal, Sami PA Unavailable Unavailable Bal, Sami PA Unavailable Unavailable Bal, Sami PA Unavailable Unavailable Gilma, L Jennifer RDH Unavailable Unavailable Ray, L Mary DO Unavailable Unavailable Ray, L Mary DO Unavailable Unavailable Ray, L Mary DO Unavailable Unavailable Ray, L Mary DO Unavailable Unavailable Ray, L Mary DO Unavailable Unavailable Ray, L Mary DO Unavailable Unavailable Ray, L Mary DO Unavailable Unavailable Ray, L Mary DO Unavailable Unavailable Ray, L Mary DO Unavailable Unavailable Ray, L Mary DO Unavailable Unavailable Ray, L Mary DO Unavailable Unavailable Ray, L Mary DO Unavailable Unavailable Ray, L Mary DO Unavailable Unavailable Ray, L Mary DO Unavailable Unavailable Ray, L Mary DO Unavailable Unavailable Ray, L Mary DO Unavailable Unavailable Ray, L Mary DO Unavailable Unavailable Ray, L Mary DO Unavailable Unavailable Ray, L Mary DO Unavailable Unavailable Ray, L Mray DO Unavailable Unavailable Ray, L Mary DO Unavailable Unavailable Ray, L Mary DO Unavailable Unavailable Ray, L Mary DO Unavailable Unavailable Ray, L Mary DO Unavailable Unavailable Ray, L Mary DO Unavailable Unavailable Ray, L Mary DO Unavailable Unavailable Ray, L Mary DO Unavailable Unavailable Ray, L Mary DO Unavailable Unavailable Ray, L Mary DO Unavailable Unavailable Ray, L Mary DO Unavailable Unavailable Ray, L Mary DO Unavailable Unavailable Ray, L Mary DO Unavailable Unavailable Ray, L Mary DO Unavailable Unavailable Ray, L Mary DO Unavailable Unavailable Ray, L Mary DO Unavailable Unavailable Ray, L Mary DO Unavailable Unavailable Ray, L Mary DO Unavailable Unavailable Ray, L Mary DO Unavailable Unavailable Ray, L Mary DO Unavailable Unavailable Ray, L Mary DO Unavailable Unavailable Ray, L Mary DO Unavailable Unavailable Ray, L Mary DO Unavailable Unavailable Ray, L Mary DO Unavailable Unavailable Ray, L Mary DO Unavailable Unavailable Ray, L Mary DO Unavailable Unavailable Ray, L Mary DO Unavailable Unavailable Ray, L Mary DO Unavailable Unavailable Ray, L Mary DO Unavailable Unavailable Ray, L Mary DO Unavailable Unavailable Ray, L Mary DO Unavailable Unavailable Ray, L Mary DO Unavailable Unavailable Ray, L Mary DO Unavailable Unavailable Ray, L Mary DO Unavailable Unavailable Ray, L Mary DO Unavailable Unavailable Ray, L Mary DO Unavailable Unavailable Ray, L Mary DO Unavailable Unavailable Ray, L Mary DO Unavailable Unavailable Ray, L Mary DO Unavailable Unavailable Ray, L Mary DO Unavailable Unavailable Ray, L Mary DO Unavailable Unavailable Ray, L Mary DO Unavailable Unavailable Ray, L Mary DO Unavailable Unavailable Ray, L Mary DO Unavailable Unavailable Ray, L Mary DO Unavailable Unavailable Ray, L Mary DO Unavailable Unavailable Ray, L Mary DO Unavailable Unavailable Ray, L Mary DO Unavailable Unavailable Ray, L Mary DO Unavailable Unavailable Ray, L Mary DO Unavailable Unavailable Ray, L Mary DO Unavailable Unavailable Ray, L Mary DO Unavailable Unavailable Ray, L Mary DO Unavailable Unavailable Ray, L Mary DO Unavailable Unavailable Ray, L Mary DO Unavailable Unavailable Ray, L Mary DO Unavailable Unavailable Re-disclosure Warning The records that you are about to access may contain information from federally-assisted alcohol or drug abuse programs. If such information is present, then the following federally mandated warning applies: This information has been disclosed to you from records protected by federal confidentiality rules (42 CFR part 2). The federal rules prohibit you from making any further disclosure of this information unless further disclosure is expressly permitted by the written consent of the person to whom it pertains or as otherwise permitted by 42 CFR part 2. A general authorization for the release of medical or other information is NOT sufficient for this purpose. The Federal rules restrict any use of the information to criminally investigate or prosecute any alcohol or drug abuse patient.The records that you are about to access may contain highly sensitive health information, the redisclosure of which is protected by Article 27-F of the [facility] Public Health law. If you continue you may have access to information: Regarding HIV / AIDS; Provided by facilities licensed or operated by the [facility] Office of Mental Health; or Provided by the [facility] Office for People With Developmental Disabilities. If such information is present, then the following [facility] mandated warning applies: This information has been disclosed to you from confidential records which are protected by state law. State law prohibits you from making any further disclosure of this information without the specific written consent of the person to whom it pertains, or as otherwise permitted by law. Any unauthorized further disclosure in violation of state law may result in a fine or alf sentence or both. A general authorization for the release of medical or other information is NOT sufficient authorization for further disc losure. 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 -NO Allergies and Adverse Reactions Type Description Substance Reaction Status Data Source(s ) Allergy to substance No Known Allergies No known allergies (situation ) [facility] ([facility]) Allergy to substance No Known Allergies No known allergies (situation ) [facility] ([facility]) Allergy to substance No Known Allergies No known allergies (situation ) [facility] ([facility]) Allergy to substance No Known Allergies No known allergies (situation ) [facility] ([facility]) Allergy to substance No Known Allergies No known allergies (situation ) [facility] ([facility]) Allergy to substance No Known Allergies No known allergies (situation ) [facility] ([facility]) Allergy to substance No Known Allergies No known allergies (situation ) [facility] ([facility]) Allergy to substance No Known Allergies No known allergies (situation ) [facility] ([facility]) Allergy to substance No Known Allergies No known allergies (situation ) [facility] ([facility]) Encounters Encounter Providers Location Date Indications Data Source(s ) Outpatient Attender: Jennifer MALDONADO 01/30/2021 12:00:00 AM [facility] Outpatient Attender: Jennifer MALDONADO 01/02/2021 12:00:00 AM [facility] Outpatient Attender: Jennifer MALDONADO [id number] 12/16 12:00:00 AM EST - 12/31/2020 11:25:34 AM [facility] Outpatient Attender: LONA HUITRON MDAdmitter: LONA HUITRON MD [id number] 12/24/2020 12:00:00 AM EST - 12/24/2020 12:00:00 AM ES T [facility] macromastia Patient admitted. Outpatient Attender: OCHOA Prieto/Ajit/Isak/Remi lam 11/26/2020 08:00:00 AM EDT [facility] ([facility] actice, ) Outpatient Attender: Sami ABDUL 11/18/2020 07 :45:00 AM EDT D13.4 adenoma of liver D18.03 [facility]13.[facility] adenoma of liver D18.03 hemangioma of liver Unknown<td ID="encounterTypeDescriptionI D0">Chart Update</td><td>Ashanti Jacobs RN</td><td></td><td>11/14/2020</td><td>1:59PM</td><td>11:59PM</td><td></td> Attender: Ashanti Jacobs RN 11/14/2020 01:59:00 PM EDT - 11/14/2020 11:59:00 PM EDT [facility] (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</td><td>[facility]</td><td>08/22/2020</td><td>9:03AM</td><td>9:42AM</td><td><content ID="encounterDiagnosisID0-0">Dysplastic Nevus</content>, <content ID="encounterDiagnosisID0-1">Assessment of Removal of Sutures</content></td>Outpatient Attender: Ochoa Reed NP [facility] 08/22/2020 09:03:00 AM EDT - 08/22/2020 09:42:03 AM EDT Assessment of Removal of SuturesDysplastic Nevus [facility] ([facility]) Assessment of Removal of Sutures Dysplastic Nevus Outpatient Attender: Mary Valdez DO 08/15/2020 11:00:00 PM EDT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 [facility]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 Outpatient<td ID="encounterTypeDescripti onID0">Procedure</td><td>Mary Valdez </td><td>[facility]</td><td>08/15/2020</td><td>11:38AM</td><td>12:36PM</td><td><content ID="encounterDiagnosisID0-0">Dysplastic Nevus</content></td> Attender: Mary José Miguel BERGER [facility] 08/15/2020 11:38:00 AM EDT - 08/15/2020 12:36:42 PM EDT Dysplastic Nevus [facility] ([facility]) Dysplastic Nevus <td ID="encounterTypeDescriptionID0">AHR </td><td>Mary Valdez </td><td>[facility]</td><td>07/11/2020</td><td>5:48PM</td><td>6:49PM</td><td><content ID="encounterDiagnosisID0-0">Visit For: Routine Adult H&p</content>, <content ID="encounterDiagnosisID0-1">Assessment of Visit For: Screening Exam Malignant Neoplasm Breast</content>, <content ID="encounterDiagnosisID0- 2">Acrochordon</content>, <content ID="encounterDiagnosisID0- 3">Hyperlipidemia</content>, <content ID="encounterDiagnosisID0-4">Hemangioma Intra-abdominal Structures</content>, <content ID="encounterDiagnosisID0- 5">Liver Neoplasm, Benign - Hepatic Adenoma</content>, <content ID="encounterDiagnosisID0-6">Hypertrophy of Breast</content></td>Outpatient Attender: Mary Valdez DO [facility] 07/11/2020 05:48:00 PM EDT - 07/11/2020 06:49:06 PM EDT Hypertrophy of BreastHyperlipidemiaVisit For: Routine Adult H&pAcrochordonLiver Neoplasm, Benign - Hepatic AdenomaHemangioma Intra-abdominal StructuresAssessment of Visit For: Screening Exam Malignant Neoplasm Breast [facility] ([facility]) Hypertrophy of Breast Hyperlipidemia Visit For: Routine Adult H&p Acrochordon Liver Neoplasm, Benign - Hepatic Adenoma Hemangioma Intra-abdominal Structures Assessment of Visit For: Screening Exam Malignant Neoplasm Breast Attender: SHERLYN BAL MDReferrer: Mary Mayes 06/24/2020 08:21:05 PM EDT [facility] Unknown<td ID="encounterTypeDescriptionI D0">H Adult Prophy</td><td>Jennifer Dillard [facility]</td><td>[facility]</td><td>06/12/2020</td><td>3:26PM</td><td>4:01PM</td><td></td> Attender: Jennifer Dillard [facility] 06/12/2020 03:26:00 PM EDT - 06/12/2020 04:01:00 PM EDT [facility] (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 <td ID="encounterTypeDescriptionID1">Pro cedure</td><td>Mary Valdez DO</td><td>[facility]</td><td>02/01/2020</td><td><content ID="encounterDiagnosisID1-0">Dysplastic Nevus</content></td>Outpatient Attender: Mary Valdez [facility] 02/01/2020 04:04:00 PM EST - 02/01/2020 04:55:33 PM EST Dysplastic NevusDysplastic Nevus [facility] ([facility] ) Dysplastic Nevus Dysplastic Nevus <td ID="encounterTypeDescriptionID2">Buster destini</td><td>Mary Valdez DO</td><td>[facility]</td><td>12/27/2019</td><td><content ID="encounterDiagnosisID2-0">Dysplastic Nevus</content>, <content ID="encounterDiagnosisID2-1">Acrochordon</content></td>Outpatient Attender: Mary Valdez [facility] 12/27/2019 11:28:00 AM EST - 12/27/2019 11:54:58 AM EST AcrochordonAcrochordonAcrochordonDysplas tic NevusDysplastic NevusDysplastic Nevus [facility] ([facility]) Acrochordon Acrochordon Acrochordon Dysplastic Nevus Dysplastic Nevus Dysplastic Nevus Outpatient Attender: Sami ABDUL 12/13/2019 09 :42:00 AM EDT d18.03 heman. liver [facility] d18.03 heman. liver <td ID="encounterTypeDescriptionID3">H A dult Prophy</td><td>Jennifer Dillard [facility]</td><td>[facility]</td><td>11/16/2019</td><td></td>Unknown Attender: Jennifer Dillard [facility] 11/16/2019 03:54:00 PM EDT - 11/16/2019 04:24:00 PM EDT [facility] ([facility]) Immunizations Vaccine Date Status Description Data Source(s) COVID-[address] [facility] 12/03/2020 12:00:00 AM EDT completed [place] Vaccine Series Complete: YESThis Data wa s Submitted to [facility] [employer] [employer] COVID19 06/01/2020 06:06:00 PM EDT completed <td ID="Flalkmlbdfzou-Fyvvtpxtoxq-WM3">Pfizer COVID19</td><td ID="ImmunizationDose- 1">2</td><td>06/01/2020</td><td ID="Dtstzosmyquxc-BqquoOxry-IS7"></td><td></td> <td ID="Pghzjawgcqskn-Bzmmnw-LR7">Complete (Reported)</td><td>Patient</td><td ID="Gwwjhrjpwjfzd-Ozyvm-Ixhf-Comment-ID1"></td> [facility] ([facility]) COVID-[address] [facility] 06/01/2020 12:00:00 AM EDT completed [facility]IS Vaccine Series Complete: YESThis Data wa s Submitted to [facility] [employer] [employer] [place] [id number] 05/11/2020 06:06:00 PM EDT completed <td ID="Ojqzcrkqzyyql-Bhfnkkabuld-EU3">Pfizer COVID19</td><td ID="ImmunizationDose- 0">1</td><td>05/11/2020</td><td ID="Kykhlxfocelyv-SedkpJfxl-OU9"></td><td></td> <td ID="Fcnrlxkqjxmxr-Buganj-KE5">Complete (Reported)</td><td>Patient</td><td ID="Igpvsnxidcrku-Owpry-Efmp-Comment-ID0"></td> [facility] ([facility]) COVID-[address] [facility] 05/11/2020 12:00:00 AM EDT completed [facility]IS Vaccine Series Complete: NOThis Data was Submitted to [facility] [employer]. Medications Medication Brand Name Start Date Product Form Dose Route Admi nistrative Instructions Pharmacy Instructions Status Indications Reaction Description Data Source(s) 5 mg 12/24/2020 12:00:00 AM EST tablet 10 TAKE ONE TABLET BY MOUTH EVERY 6 HOURS NEEDED FOR PAIN FOR UP TO 10 DAYS MAXIMUM DAILY DOSE = 4 TAKE ONE TABLET BY MOUTH EVERY 6 HOURS NEEDED FOR PAIN FOR UP TO 10 DAYS MAXIMUM DAILY DOSE = 4 SOLD: 12/24/2020 [email or web address] Ondansetron 4 MG Disintegrating Oral Tablet ONDANSETRON 12/24/2020 12:00:00 AM EST tablet,disintegrating 9 DISSOLVE O NE TABLET ON TONGUE EVERY 8 HOURS NEEDED FOR NAUSEA FOR UP TO 3 DAYS DISSOLVE ONE TABLET ON TONGUE EVERY 8 HO URS NEEDED FOR NAUSEA FOR UP TO 3 DAYS SOLD: 12/24/2020 [facility] Clindamycin 0.01 MG/MG Topical Gel Clindamycin Phospha te 1% External Gel Clindamycin Phosphate 1% External Gel 10/30/2020 12:00:00 AM EDT active clindamycin 0.01 MG/MG Topical G el [facility] ([facility]) 1 % 10/30/2020 12:00:00 AM EDT gel 60 APPLY TOPICALLY TO FACE ONCE DAILY APPLY TOPICALLY TO FACE ONCE DAILY SOLD: 11/06/2020 [facility] Collagen Hydrolysate (Bovine) Powder Collagen Hydrolysate (B ovine) Powder 08/22/2020 12:00:00 AM EDT active Collagen Hydrolysate (Bovine) [facility] ([facility]) QC Tumeric Complex 500 MG Oral Capsule QC Tumeric Complex 50 0 MG Oral Capsule 08/22/2020 12:00:00 AM EDT active QC Tumeric Complex [facility] ([facility]) 1 % 04/04/2020 12:00:00 AM EST gel 30 APPLY TOPICALLY TO FACE ONCE DAILY APPLY TOPICALLY TO FACE ONCE DAILY SOLD: 04/09/2020 [facility] Clindamycin 0.01 MG/MG Topical Gel Clindamycin Phospha te 1% External Gel Clindamycin Phosphate 1% External Gel 04/04/2020 12:00:00 AM EST active clindamycin 0.01 MG/MG Topical G el [facility] ([facility]) Benzoyl Peroxide 0.05 MG/MG Topical Gel Benzoyl Peroxi de 5% External Gel Benzoyl Peroxide 5% External Gel 04/04/2020 12:00:00 AM EST active benzoyl peroxide 0.05 MG/MG Topical Gel [facility] ([facility]) Clindamycin 0.01 MG/MG Topical Gel Clindamycin Phospha te 1% External Gel Clindamycin Phosphate 1% External Gel 10/10/2019 12:00:00 AM EDT active clindamycin 0.01 MG/MG Topical G el [facility] ([facility]) Ibuprofen 800 MG Oral Tablet Ibuprofen 800MG Oral Tabl et Ibuprofen 800MG Oral Tablet 09/14/2016 12:00:00 AM EDT aborted ibuprofen 800 MG Oral Tablet [facility] ([facility]) Cyclobenzaprine hydrochloride 10 MG Oral Tablet Cyclobenzaprine HCl 10MG Oral Tablet Cyclobenzaprine HCl 10MG Oral Tablet 09/14/2016 12:00:00 AM EDT aborted cyclobenzaprine hydrochlorid e 10 MG Oral Tablet [facility] ([facility]) Insurance Providers Payer name Policy type / Coverage type Policy ID Covered green party ID Covered green party's relationship to larsen Policy [place] Plan Information BLUE CROSS [id number] SP [id number] BLUE CROSS [id number] SP [id number] [employer] [place] Other 0 [id number] Family Dep endent Jaime Rarick 0 [facility] PPO POS [id number] [employer] [place] Other 0 [id number] Family Depend ent Jaime Rarick 0 [employer] [place] Other 0 [id number] Family Depend ent Jaime Rarick 0 [employer] [place] Other 0 [id number] Family Depend ent Jaime Rarick 0 [employer] [place] Other 0 [id number] Family Depend ent Jaime Rarick 0 [employer] [place] Other 0 [id number] Family Dep endent Jaime Rarick 0 [employer] [place] Other 0 [id number] Family Dep endent Jaime Rarick 0 [employer] [place] Other 0 [id number] Family Dep endent Jaime Rarick 0 [employer] [place] Other 0 [id number] Family Dep endent Jaime Rarick 0 [employer] [place] Other 0 [id number] Family Dep endent Jaime Rarick 0 [employer] [place] Other 0 [id number] Family Dep endent Jaime Rarick 0 [employer] [place] Other 0 [id number] Family Dep endent Jaime Rarick 0 [employer] [place] Other 0 [id number] Family Dep endent Jaime Rarick 0 [employer] [place] Other 0 [id number] Family Dep endent Jaime Rarick 0 [employer] [place] Other 0 [id number] Family Dep endent Jaime Rarick 0 [employer] [place] Other 0 [id number] Family Dep endent Jaime Rarick 0 [employer] [place] Other 0 [id number] Family Dep endent Jaime Rarick 0 [employer] [place] Other 0 [id number] Family Dep endent Jaime Rarick 0 [employer] [place] Other 0 [id number] Family Dep endent Jaime Rarick 0 [employer] [place] Other 0 [id number] Family Dep endent Jaime Rarick 0 [employer] [place] Other 0 [id number] Family Dep endent Jaime Rarick 0 [employer] [place] Other 0 [id number] Family Dep endent Jaime Rarick 0 [employer] [place] Other 0 [id number] Family Dep endent Jaime Rarick 0 [employer] [place] Other 0 [id number] Family Dep endent Jaime Rarick 0 [employer] [place] Other 0 [id number] Family Dep endent Jaime Rarick 0 [employer] [place] Other 0 [id number] Family Dep endent Jaime Rarick 0 [employer] [place] Other 0 [id number] Family Dep endent Jaime Rarick 0 [employer] [place] Other 0 [id number] Family Dep endent Jaime Rarick 0 [employer] [place] Other 0 [id number] Family Dep endent Jaime Rarick 0 [employer] [place] Other 0 [id number] Family Dep endent Jaime Rarick 0 [employer] [place] Other 0 [id number] Self 0 [employer] [place] Other 0 [id number] Family Dep endent Jaime Rarick 0 [employer] [place] Other 0 [id number] Family Dep endent Jaime Rarick 0 [employer] [place] Other 0 [id number] Family Dep endent Jaime Rarick 0 [employer] [place] Other 0 [id number] Family Dep endent Jaime Rarick 0 [employer] [place] Other 0 [id number] Family Dep endent Jaime Rarick 0 [employer] [place] Other 0 [id number] Family Dep endent Jaime Rarick 0 [employer] [place] Other 0 [id number] Family Dep endent Jaime Rarick 0 [employer] [place] Other 0 [id number] Family Dep endent Jaime Rarick 0 [employer] [place] Other 0 [id number] Family Dep endent Jaime Rarick 0 [employer] [place] Other 0 [id number] Family Dep endent Jaime Rarick 0 [employer] [place] Other 0 [id number] Family Dep endent Jaime Rarick 0 [employer] [place] Other 0 [id number] Family Dep endent Jaime Rarick 0 [employer] [place] Other 0 [id number] Family Dep endent Jaime Rarick 0 [employer] [place] Other 0 [id number] Family Dep endent Jaime Rarick 0 [employer] [place] Other 0 [id number] Family Dep endent Jaime Rarick 0 [employer] [place] Other 0 [id number] Family Dep endent Jaime Rarick 0 [employer] [id number] SPO [id number] EXCELLUS H [id number] Unkn [id number] [employer] [place] Other 0 [id number] Family Dep endent Jaime Rarick 0 [employer] [place] Other 0 [id number] Family Dep endent Jaime Rarick 0 EXCELLUS BCBS [id number] Spo [id number] [employer] [place] Other 0 [id number] Family Dep endent Jaime Rarick 0 [employer] [place] Other 0 [id number] Family Dep endent Jaime Rarick 0 [employer] [place] Other 0 [id number] Family Dep endent Jaime Rarick 0 [employer] [place] Other 0 [id number] Family Dep endent Jaime Rarick 0 [employer] [place] Other 0 [id number] Family Dep endent Jaime Rarick 0 EXCELLUS H [id number] Unkn [id number] [employer] [place] Other 0 [id number] Family Dep endent Jaime Rarick 0 [employer] [place] Other 0 [id number] Family Dep endent Jaime Rarick 0 [employer] [place] Other 0 [id number] Family Dep endent Jaime Rarick 0 [employer] [place] Other 0 [id number] Family Dep endent Jaime Rarick 0 [employer] [place] Other 0 [id number] Family Dep endent Jaime Rarick 0 [employer] [place] Other 0 [id number] Family Dep endent Jaime Rarick 0 [employer] [place] Other 0 [id number] Family Dep endent Jaime Rarick 0 [employer] [place] Other 0 [id number] Family Dep endent Jaime Rarick 0 [employer] [place] Other 0 [id number] Family Dep endent Jaime Rarick 0 [employer] [place] Other 0 [id number] Family Dep endent Jaime Rarick 0 [employer] [id number] SPO [id number] [employer] [place] Other 0 [id number] Family Dep endent Jaime Rarick 0 [employer] [place] Other 0 [id number] Family Dep endent Jaime Rarick 0 [employer] [place] Other 0 [id number] Family Dep endent Jaime Rarick 0 BLUE CROSS [id number] SPO [id number] SELF PAY SELF PAY BLUE CROSS [id number] SPO [id number] SELF PAY BLUE CROSS [id number] SPO [id number] BLUE CROSS [id number] SPO [id number] SELF PAY SELF PAY BLUE CROSS [id number] SPO [id number] SELF PAY BLUE CROSS [id number] SPO [id number] SELF PAY BLUE CROSS [id number] SPO [id number] [employer] [place] PPO [id number] [id number] ID IDENTIFICATION ID IDENTIFICATION [id number] Other Insurance ID IDENTIFICATION [employer] [id number] Blue Cross/Donna eld [id number] [employer] [id number] Blue Cr oss/Shield [employer] BC-BS PPO 306 [id number] [id number] BLUE CROSS [id number] SPO [id number] [facility] Health Maintenance Organization (O) [id number] Family Dependent [id number] BLUE CROSS [id number] SPO [id number] [employer] BC-BS PPO 306 [id number] HU2 [id number] [employer] BCBS B [id number] P [id number] [facility] (O) [id number] Family Dependent [id number] ID IDENTIFICATION [id number] Other Insurance [id number] [facility] Organization (O) [id number] Family Dependent [id number] BCBS [place] PPO 302/307 [id number] HU2 [id number] Problems, Conditions, and Diagnoses Code Display Name Description Problem Type Effective Dates Data Source(s) macromastia macromastia Diagnosis 12/24/2020 05:57:00 AM [facility] D13.4 Benign neoplasm of liver D13.4 - Benign neoplasm of li vahid Diagnosis 11/18/2020 07:45:00 AM EDT [facility] Z12.[facility] Encounter for screening mammogram for ma lignant neoplasm of breast Z12.31 - Encounter for screening mammogram for malignant neoplasm of breast Diagnosis 11/08/2020 11:20:00 AM EDT [facility] D48.5 Neoplasm of uncertain behavior of skin D 48.5 - Neoplasm of uncertain behavior of skin Diagnosis 08/15/2020 11:00:00 PM EDT [facility] 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 D18.03 - Hemangioma of intra- abdominal structures Diagnosis 12/13/2019 09:42:00 AM [facility] Risk: Obstructive Sleep Apnea Syndrome R isk: Obstructive Sleep Apnea Syndrome Problem 08/13/2020 09:29:00 AM EDT [facility] ([facility]) 799.9 Risk: Obstructive Sleep Apnea Syndrome R isk: Obstructive Sleep Apnea Syndrome Problem 08/13/2020 09:29:00 AM EDT [facility] ([facility]) 799.9 Risk: Obstructive Sleep Apnea Syndrome R isk: Obstructive Sleep Apnea Syndrome Problem 08/13/2020 09:29:00 AM EDT [facility] ([facility]) 611.1 Hypertrophy of Breast Hypertrophy of Breast Problem 07/11/2020 06:37:00 PM EDT [facility] ([facility]) 611.1 Hypertrophy of Breast Hypertrophy of Breast Problem 07/11/2020 06:37:00 PM EDT [facility] ([facility]) 611.1 Hypertrophy of Breast Hypertrophy of Breast Problem 07/11/2020 06:37:00 PM EDT [facility] ([facility]) 611.1 Hypertrophy of Breast Hypertrophy of Breast Problem 07/11/2020 06:37:00 PM EDT [facility] ([facility]) 272.4 Hyperlipidemia Hyperlipidemia Problem 07/11/2020 06:13: 00 PM EDT [facility] ([facility]) 272.4 Hyperlipidemia Hyperlipidemia Problem 07/11/2020 06:13: 00 PM EDT [facility] 272.4 Hyperlipidemia Hyperlipidemia Problem 07/11/2020 06:13: 00 PM EDT [facility] ([facility]) 272.4 Hyperlipidemia Hyperlipidemia Problem 07/11/2020 06:13: 00 PM EDT [facility] ([facility]) 701.9 Acrochordon Acrochordon Problem 12/27/2019 12:00:00 AM EST [facility] ([facility]) 701.9 Acrochordon Acrochordon Problem 12/27/2019 12:00:00 AM EST [facility] ([facility]) 701.9 Acrochordon Acrochordon Problem 12/27/2019 12:00:00 AM EST [facility] ([facility]) 701.9 Acrochordon Acrochordon Problem 12/27/2019 12:00:00 AM EST [facility] ([facility]) 701.9 Acrochordon Acrochordon Problem 12/27/2019 12:00:00 AM EST [facility] ([facility]) 701.9 Acrochordon Acrochordon Problem 12/27/2019 12:00:00 AM EST [facility] ([facility]) 701.9 Acrochordon Acrochordon Problem 12/27/2019 12:00:00 AM EST [facility] ([facility]) 701.9 Acrochordon Acrochordon Problem 12/27/2019 12:00:00 AM EST [facility] ([facility]) Surgeries/Procedures Procedure Description Date Indications Data Source(s) OFFICE OUTPATIENT NEW 30 MINUTES 11/26/2020 12:00:00 A M EDT [facility] [place] [facility] Summary provided electronically in CCDA format & reasonable certainty of receipt 08/22/2020 12:00:00 AM EDT - 08/22/2020 12:00:00 AM EDT [facility] ([facility]) Summary provided electronically in CCDA format & reasonable certainty of receipt 08/15/2020 12:00:00 AM EDT - 08/15/2020 12:00:00 AM EDT [facility] ([facility]) Clinical summary provided to patient 02/2020 12:00:00 AM EDT - 08/15/2020 12:00:00 AM EDT [facility] ([facility]) Exc Malignant Lesion .6 to 1 cm Scalp Neck Hand Ft gen indu Exc Malignant Lesion .6 to 1 cm Scalp Neck Hand Ft genitalia 08/15/2020 12:00:00 AM EDT [facility] ([facility]) Exc Malignant Lesion .6 to 1 cm Scalp Neck Hand Ft gen indu Exc Malignant Lesion .6 to 1 cm Scalp Neck Hand Ft genitalia 08/15/2020 12:00:00 AM EDT [facility] ([facility]) Alcohol consumption screening (procedure) 07/11/2020 12:00:00 AM EDT - 07/11/2020 12:00:00 AM EDT [facility] ([facility]) Drug of abuse screen (procedure) 021 12:00:00 AM EDT - 07/11/2020 12:00:00 AM EDT [facility] ([facility]) Summary provided electronically in CCDA format & reasonable certainty of receipt 07/11/2020 12:00:00 AM EDT - 07/11/2020 12:00:00 AM EDT [facility] ([facility]) drug and/or alcohol abuse structured scr eening and brief intervention 07/11/2020 : Prescreening Completed - No Further Screening Indicated 07/11/2020 12:00:00 AM EDT - 07/11/2020 12:00:00 AM EDT [facility] ([facility]) Destruction 2nd through 14 lesions Destruction 2nd through 1 4 lesions 07/11/2020 12:00:00 AM EDT [facility] ([facility]) Destruction 1st lesion Destruction 1st lesion 07/11/2020 12:00:00 A M EDT [facility] ([facility]) records management 07/10/2020 - Chart Prep Performed 07/10/2020 12:00:00 AM EDT - 07/10/2020 12:00:00 AM EDT [facility] ([facility] ) Clinical [facility] electronically with reasonable certainty of receipt or [facility]12/[facility] 12:00:00 AM EDT - 06/12/2020 12:00:00 AM EDT [facility] ([facility]) Transition in care medication list update 06/12/2020 12:00:00 AM EDT - 06/12/2020 12:00:00 AM EDT [facility] ([facility]) Bitewing - 4 radiographic images Bitewing - 4 radiographic i mages 06/12/2020 12:00:00 AM EDT [facility] ([facility]) Oral Hygiene/[facility] Oral Hygiene/[facility] 06/12/2020 12:00:00 AM EDT [facility] ([facility]) Periodic Oral Evaluation Periodic Oral Evaluation 06/12/2020 12:00: 00 AM EDT [facility] ([facility]) Oral Cancer Screening Oral Cancer Screening 06/12/2020 12:00:00 AM EDT [facility] ([facility]) Nutritional Counseling Nutritional Counseling 06/12/2020 12:00:00 A M EDT [facility] ([facility]) Prophylaxis Adult Prophylaxis Adult 06/12/2020 12:00:00 AM EDT [facility] ([facility]) Excision Benign Lesion .5cm or less scalp nck hnd ft g eitali Excision Benign Lesion .5cm or less scalp nck hnd ft geitali 02/01/2020 12:00:00 AM EST [facility] ([facility]) Destruction (eg, Laser Surgery, Electrosurgery, Cryosu rgery, Destruction (eg, Laser Surgery, Electrosurgery, Cryosurgery, 12/27/2019 12:00:00 AM EST [facility] ([facility]) Destruction 2nd through 14 lesions Destruction 2nd through 1 4 lesions 12/27/2019 12:00:00 AM EST [facility] ([facility]) Destruction 1st lesion Destruction 1st lesion 12/27/2019 12:00:00 A M [facility] ([facility]) Oral Hygiene/[facility] Oral Hygiene/[facility] 11/16/2019 12:00:00 AM EDT [facility] ([facility]) Oral Cancer Screening Oral Cancer Screening 11/16/2019 12:00:00 AM EDT [facility] ([facility]) Nutritional Counseling Nutritional Counseling 11/16/2019 12:00:00 A M EDT [facility] ([facility]) Periodic Oral Evaluation Periodic Oral Evaluation 11/16/2019 12:00: 00 AM EDT [facility] ([facility]) Prophylaxis Adult Prophylaxis Adult 11/16/2019 12:00:00 AM EDT [facility] ([facility]) Prophylaxis Adult Prophylaxis Adult 11/16/2019 12:00:00 AM EDT [facility] ([facility]) Nutritional Counseling Nutritional Counseling 11/16/2019 12:00:00 A M EDT [facility] ([facility]) Periodic Oral Evaluation Periodic Oral Evaluation 11/16/2019 12:00: 00 AM EDT [facility] ([facility]) Oral Cancer Screening Oral Cancer Screening 11/16/2019 12:00:00 AM EDT [facility] ([facility]) Oral Hygiene/[facility] Oral Hygiene/[facility] 11/16/2019 12:00:00 AM EDT [facility] ([facility]) Results ID Date Data Source [id number] 12/31/2020 11:55:02 AM [facility] Name Value Range Interpretation Code Description Data Joselin rce(s) Supporting Document(s) Progress Note [facility] HIXFWc4eKvALDdLc99/SLBkbUQUgr0AjCNuoVPq7WBzkMPYwZ4WlRCF1hH2bCKX4ICgGDaAuAgCvPYB4 lbm [file] lEHKAJfPTqejs1Lk0pi0djqICTH4GvY5d2gU1sJ2AgefSxvmlQYRDfp/Pbtv5G0r4brKdeTo+OeCx/procedures rn [file] AgICAgICAgICAgICAgICAgICAgICAgICAgICAgICAgICAgICAgICAgICAgICAgICAgICAgICAgICAgIC AgICAgICAgICAgICAgICAgICAgICAgICAgICAgICAg ICAgICANCiAgICAgICAgICAgICAgICAgICAgICAgICAgICAgICAgICAgICAgICAgICAgICAgICAgICAg ICAgICAgICAgICAgICAgICAgICAgICAgICAgICAgICAgICAgICAgICAgICAgICANCiAgICAgICAgICAg ICAgICAgICAgICAgICAgICAgICAgICAgICAgICAgIC AgICAgICAgICAgICAgICAgICAgICAgICAgICAgICAgICAgICAgICAgICAgICAgICAgICAgICAgICANCi AgICAgICAgICAgICAgICAgICAgICAgICAgICAgICAgICAgICAgICAgICAgICAgICAgICAgICAgICAgIC AgICAgICAgICAgICAgICAgICAgICAgICAgICAgICAg ICAgICAgICANCiAgICAgICAgICAgICAgICAgICAgICAgICAgICAgICAgICAgICAgICAgICAgICAgICAg ICAgICAgICAgICAgICAgICAgICAgICAgICAgICAgICAgICAgICAgICAgICAgICAgICANCiAgICAgICAg ICAgICAgICAgICAgICAgICAgICAgICAgICAgICAgIC AgICAgICAgICAgICAgICAgICAgICAgICAgICAgICAgICAgICAgICAgICAgICAgICAgICAgICAgICAgIC ANCiAgICAgICAgICAgICAgICAgICAgICAgICAgICAgICAgICAgICAgICAgICAgICAgICAgICAgICAgIC AgICAgICAgICAgICAgICAgICAgICAgICAgICAgICAg ICAgICAgICAgICANCiAgICAgICAgICAgICAgICAgICAgICAgICAgICAgICAgICAgICAgICAgICAgICAg ICAgICAgICAgICAgICAgICAgICAgICAgICAgICAgICAgICAgICAgICAgICAgICAgICAgICANCiAgICAg ICAgICAgICAgICAgICAgICAgICAgICAgICAgICAgIC AgICAgICAgICAgICAgICAgICAgICAgICAgICAgICAgICAgICAgICAgICAgICAgICAgICAgICAgICAgIC AgICANCiAgICAgICAgICAgICAgICAgICAgICAgICAgICAgICAgICAgICAgICAgICAgICAgICAgICAgIC AgICAgICAgICAgICAgICAgICAgICAgICAgICAgICAg ICAgICAgICAgICAgICANCjw/uGMlK5hhsZAbrlX4U4trNd2DLn2BBU0ay1OmREAfJLovuzTbDpvWItKa PJIzWzoLWwm9KUurJH3YwILhS9TmC8SsTPsuJF5RWQBqRWQugUClADKrLBCxJbI5QPKlXHokJM3GiCVm QFmpXDYqCREyPoVkSDOjDZ8SZIByJ102hvSkIf3WNk 7YJhIpDG8otf0QDzKxETFgAyzLDxt9HVfmHM1KuMSheZBsLzCeYYNQOxLaF8doq5FmZbFoGAAZOYhmKT 5Wl4VqdUNlBMo+Rh3DTH9wh4XfFVkzTtRdBJ1xcw7BQMoUZyOwP1RlbBadWYKmd0toELCaPE0iyUQgTT C1LSYkps0atF2yRRZQgEEjDHLKXVAgzUJpMH6bEb5s TCWyRHVxUuDnDXOSBH3CXIFnWLXhnJJcKCRzTMKQRD5ALLllWIT3PZLskhNmdXEyOGspBZ5FTABrfeYv MjEgMCBSDQo+Ln0QVW1nq5JuVCmfHbXnWX5mig0FMXeRJuThC6U8dUWeH6Z6QImtIa3PQWJgKRAzUTik IZEXTTkfWH4WYH1wmcH4NF2IzGNuJVYtPBHqfUDbSU f6S22drJLfFLkgPK3BVBT+Tiana+Ry2VDWVoPMSaZUXbSeBzSOPLZoIsK4WsK0LQd0YcL3PjSA08pQlbdp NuGHhjMZ5FTY7hFYPxFXQTJI0IuUOshI3qiuQfBECiFAURYnObS70ahANcXHPyIDEeZEDiBs2DUNVmN6 YkomIkdZdnvrYhIGIpUQFKKU3VDOmaqyUrbVQnlSsy MW83kCyoMY1ASy2FBqUjFU5axn9BrHYlKo2XXGObAI1DMEYwBLHkDTWbVTZ6TAHqDtUtLSkiEFFyPBYk LXV8YTTfAMSrPS1AApOxSJBrGTw0BVeaKFXnJCHzzn2REGKuKJGhIVX9NLQvPRVvIRKlGXxjHWMoOWCr RWP1OFAaODGcYY9BPyPdQJAjXSGbPdDeTPPdSENjvy 3WSAQfTEWbKaUmSLDsIHWnYXEdYJnpWKAeFTQ1WfucGQFxCARlKC7CHgOrPGNnJYG6TcWrHSIqEGVpgn 5JDUFkTMZdEBNcMFReOMAlWGJwFIwxIBZxTRQ0FgZeYQZnAVKdDU3QTeTvXWLnJIH2LOHaSRLzAIKcyk 3YXGTrNECpDvl6UBDhWPAtEWLpHPwsLWHfUTY7LCeb XDXzQJMhOD2LPnRcPLBgBWcaCdFlPCSnDTFoah3ISGUaAUHjKZSbOkLjTQMdHLVpRYveALKxCFC7JUIm GNOgQYCyKX0ANbIdEQGsAVhkVTKyYWRhJWFmhh9JKEUnJUDsROU0UXFtLHXoVRHaJUynKXJcFJK4YNB7 PXUfBGFkJR8TXvNbRDAyANq6XpffRPOwYNNycd4VPQ YaJYWqJTC4FcAnQBEkNXKgKGilNLVtAHDmDQYyJPFgLLGpZQ3IVfTaAJWdYuH4RUBoNSFsZJKhgg8WmS NmaUldcr7GJMjSKs7WnFzkLXE8ZHdiRk2zaVLiMeWtNLWOWd9QnsOzFPTeJFWUCKmcNMHtCYGyCdvcH9 ItPHUcAFChJjJ3ASWtGCJaIOR1PnnpPvCxSzV9V8Ba D6W7SRS8VtKbEIEiVFSfJ6H2NpGjIRH5S4GrYkH+QO6pXXv+Of4Ta7JlpaQ6xaMeWOvyVBgoGo5RWWPL T0YNCg== ID Date Data Source [id number] 12/24/2020 09:48:55 AM [facility] Name Value Range Interpretation Code Description Data Joselin rce(s) Supporting Document(s) Operative Note [facility] YYUCOd7iBcNXKyYm70/WDYijICVob0MaTOfdHAi1DOxuLSAmR9JlWDG0tX8jADA7TBaQChWxPlCqDJL6 lbm [file] ICAgICAgICAgICAgICAgICAgICAgICAgICAgICAgIC AgICAgICAgICAgICAgICAgICAgICAgDQogICAgICAgICAgICAgICAgICAgICAgICAgICAgICAgICAgIC AgICAgICAgICAgICAgICAgICAgICAgICAgICAgICAgICAgICAgICAgICAgICAgICAgICAgICAgICAgIC AgICAgDQogICAgICAgICAgICAgICAgICAgICAgICAg ICAgICAgICAgICAgICAgICAgICAgICAgICAgICAgICAgICAgICAgICAgICAgICAgICAgICAgICAgICAg ICAgICAgICAgICAgICAgDQogICAgICAgICAgICAgICAgICAgICAgICAgICAgICAgICAgICAgICAgICAg ICAgICAgICAgICAgICAgICAgICAgICAgICAgICAgIC AgICAgICAgICAgICAgICAgICAgICAgICAgDQogICAgICAgICAgICAgICAgICAgICAgICAgICAgICAgIC AgICAgICAgICAgICAgICAgICAgICAgICAgICAgICAgICAgICAgICAgICAgICAgICAgICAgICAgICAgIC AgICAgICAgDQogICAgICAgICAgICAgICAgICAgICAg ICAgICAgICAgICAgICAgICAgICAgICAgICAgICAgICAgICAgICAgICAgICAgICAgICAgICAgICAgICAg ICAgICAgICAgICAgICAgICAgDQogICAgICAgICAgICAgICAgICAgICAgICAgICAgICAgICAgICAgICAg ICAgICAgICAgICAgICAgICAgICAgICAgICAgICAgIC AgICAgICAgICAgICAgICAgICAgICAgICAgICAgDQogICAgICAgICAgICAgICAgICAgICAgICAgICAgIC AgICAgICAgICAgICAgICAgICAgICAgICAgICAgICAgICAgICAgICAgICAgICAgICAgICAgICAgICAgIC AgICAgICAgICAgDQogICAgICAgICAgICAgICAgICAg ICAgICAgICAgICAgICAgICAgICAgICAgICAgICAgICAgICAgICAgICAgICAgICAgICAgICAgICAgICAg ICAgICAgICAgICAgICAgICAgICAgDQogICAgICAgICAgICAgICAgICAgICAgICAgICAgICAgICAgICAg ICAgICAgICAgICAgICAgICAgICAgICAgICAgICAgIC NzAKJbEHKiKBKqYUVxXZDtXRZsDQWeAMXfKWXpBTMoEVc8I6liJEThNSOsNO7qXEy6Om2+DQoNCmVuZH M5esDhhS4GIW5kt8ErTXbjECFqk9FgSHy5XR7QIFLsHXiaMN0MZCsmlo4KPSCqWCQutXWMy1nwYhClYI I3TNOwJyxvIS1AWVMsI8xazqNcNWPhXLVVBWlsMLZJ IHvnTXKTSS7XQlTeD7VymX52NLXDFa2+QYexutXxEozLYfBjMVOos7FuOAt1QY9DALSgJhedu4DjZuIz SAJHRVvhCZ2ECQN7QRTvUBBtAe7HEHEkP296nyEbLX1VCm7OWrEoNH5iqj1XGuHkTLRgWnrRFep7ZBhy UH6WzTRuGIlIbMOjMGPdfcKzIp65UQIwbEPKogWxbF ZbuNZZMAMcIIKgbCB3EDsiFDOtXIZePVNwUV2iQOMvPDC2KsI4LCVKVI5MXQLbGHFlwPMyKAHyIMYBDY 1KTOwpODJ8JXRqulZhzGMsCRqzWO4AEXGvacGrBwVqPOLPCJj+Oh3HVZ8ah9HuEShvNgTsDL6mnf3FDM gORxOiI5Q0rUYcY8W9WVhzTr0UPAKbKDIeXQpuAHHM JJwhNV3MBK9mnqB5EA3LkZZcEUAwSHKhzZWqPDj0R99gpZAtPBcmFH8GGTP+Tiana+Wi0WKMYnAQAgWFVe ReMmJWAGDnQfT8OqA5KQa0RpJ1TeRG82bWdblxKfYUgsKI7BQR4kLUTkVMBIID8YsKQceB6ymvNnRDEh KZOWImHrT39syAUkPXJhMDCkNXKrXv5MLHCyJ7Zmlj DhqKocfjDyAYRzGQCKKB8NGHmlqyObjJNmzTcoDC00dGzgOI9OUq0REsYxRZ9zlg3GzOQpOj9QJVAnNT 7YGKErVNEwHKMbNZZ1UWKhQvFjAAhgJMNeTCOfDQH1GVJhDBLmQB1LJpHdLPXnVTXnXVYuIUDgXUZdpj 5XOOKfAURuTGw4BuIgUPTkQFVyXIebKRCdQCHuRCI9 JNLzHYYzGU5ZKeXzWMUqDAD4DLNaYKJvJQLmru6IUFLcYDMlOuR7DPYuVRLzXDTwDPclRSMtRKT0SJdc ZSHhTNOdXV3HNtEwYWDiXJztVXBhRFAuNMYqrj7QWVJxATYzRTf1RvVzJBGtICXdLTgmWJNsRKVfULgn DOOgHAZbQV1GKzFhDKObIUQbHSAeMSLxICEuhn0LAV OaZUBsGFM4NASzLOQjKSKrEKsiDJToNJCcTYGjIAJuRZFuBP6JFwKwYAOoXLU3IXIjXTQyZGImre3LMO ClPEFmXzL2OhYgLHVsJLXwDExkKGMjAXFgXJcuXLRnZEFnEI6RXzWtESInLVF7ZUKoYZWzTKFtkx6LVY JqSAYfKVOaNqAyMZTsDDAiIFetLDQfJEJ0EmWbWUYu HCYaVB5KPzUlHAEjUHC8GBLqYOTaTQZcbx8DNNWbEVPmXcK7GvHfCXIkZVXkSYqkOXQfDAJ7MXW1GPAt OBAnIL1IGlIdKWJvUPMdHZqvBGBzKDUotu2MlGExfVaoac5JGEiCTd1OnBxnOTM8IHemVr9xcHIbSvCu YQVZPe4VpqIzOSInTHEIHXrwHTQkEVlqRAE7SnX0Gd DxRZL6UZUsPPPcIUR2ZPMpROM6SVVdJbL5SHO6KYheUUgyCQXcSvnfSvL5GQSaYQScGZAzJBb3CJI+IF 0gDQo+Nz5Kz7LdsvK3ynPdZMrmLrM5Az8HQGNQM4BVZn== ID Date Data Source [id number] 12/24/2020 07:44:40 AM [facility] Name Value Range Interpretation Code Description Data Joselin rce(s) Supporting Document(s) History and Physical [facility] VNFULa7iVmZIAkIg97/XYKwuRDUez9WmKWxkDUk9FVvhGOWgT8LqKSX7aH8lQVW1DRkBIrKxWiQkHXM4 lbm CfWvqKUxHyBUGfFqmZSpYlPEjrDfawqLDuDI4UoAS0CMZyN40nOTFzRKWzT1AnXQMmYVO+Kk7EMGGwhT XtMR6HDlsF3X0zxig5Zb3+bK5QRwSQCLRoOXm2YydZRYRuFnq2fv0MEX57ZO5xGE2hjpjYuzUkid/1Vr vYl2l0J4Mowdb4rv4EISBWAX77ZjhaK8WR/64Bd1Wn eZ6Y/X24aYTf+por633Sd9o+LdGiqgHXEUfatF6MwEu++iF3j2cb0ZwhhDDp2X6BpCpwBiD3pZyq1E6d nKXjUf/Lurrjd5ZIkRfGX77UKpNjSTAQ1Vz288FuZ+HDM0lafSM1oYJSmmbxWFQbNthx5PdSuGjSUpxE S+IFZxirSOhY09iIqzL/RcI0V77lqqTMle7Vsv2NzL tn4tIt/YW5agZZpdwMFundSMzMpy3kbon+ZKgUled8AkJLyjdbTCnLc1ap5FNKk2t9CjzOpkLuP5p+Ox CpyK0WR5iAaqXgpA1roxiKepA2XZAPm/TamX7x6qerSwTJ1J1dA+a3keU8CG1ih1Ij6niZqYCtMprgyr WhK3ime71Yl9O6GX/wg9gsNeMLNgo9l0Aso2zd7aFZ NBU435eDZUVlURTYAJZR4m7wgzJsJLQ7OL2C+xb7GNp8W7QrbktvvlC+70d086+Ik5+M7LRKbD/7mgiT JjjVhXlJ4blJFYQ6jddbVH5nb93k+OCMfADvDD1jCrARZBCxE76cAbcy1O2abNHhyfuZoic4Lf9QFQEH FoOwKlVaWkQwdZWTshRGVUmQunekdFuRUaoqXpKOOa [file] TlP5e/WkBCo2XHStm7R++czech+z8/O8fvYyk1u/HFemOgtOrj1phSPEuqYjNdrCc3B/0HIG/O2aCwAJsDj GFcuHBxTZ2N6ezGiDiClSLgi1irV4s4hUm4oD8k+NZ aLMPXUoDyvgfv/DsEeX6PJzbd3sIrVCh5n3RjwAU3Oja8YHIAt8t9zB9Da2B5+gUtu71Gmg3b17/9tP/ 5v++X/6r1/rO6p0M/cRXDs2MGOBG/sH45/a+ZcaBbAS1vK4vlHKuhqSD8/GSNozgoZQmgrEC2c4/OKXc 94Va0puCssjc6Dj0/LTnc3CjUsS+jcpsQiOPU4XPV0 +XZNpVct11P13+sDfA+1gvx0Lz791WxOyj38NcxE3u5zs6w84w2+Ik3f5dMiu0N2tRaq3qiS23nu8OFH W5Zwu26KgJGs/oM2WglQKSpjTe7Y64fg+O3aNt4adWpPD++Kd1BYl7ytMbLJh4LoZ4u/naxLwLn4E9Oy H9cV1Y2N2/wpliAJu9ry+Vr9eUoO9/BvMGL3mcaYJ2 S0IuNTKVAmxxDIbOk69niGwe7KmP00h1ESIvgrrRE9BGsd9mDpQD8Ka8hl/dNu8sAO/ln+vDG/L+LrS/ NRj/3mQnqjX23mW8niZ9qCrziSBd3inDWnLqWf8VP0a0RJdDI9cY30IRaoV7TgfnJXlPsrp0uV90iF+C OKEbxZcEtFVKv2ZGwBQi3/KzQuP6aAXJCN/wmphHN7 division operations manager+0ZZXWejbm2p0bFy8oVpkwpq35/slKrYLSg7Gc5ciWGO1ME7FrQDOAkNZtnAw1g+Fhr4M5a3pZXLg [file] ICAgICAgICAgICAgICAgICAgICAgICAgICAgICAgIC AxSWIiSAQlLNNuTPIuJMLvIGHyNWZtMEZnRSDcPTDaRISkHH1XHHOpOLRxGOAaVMBfSCKzZUBbQGLfPC AgICAgICAgICAgICAgICAgICAgICAgICAgICAgICAgICAgICAgICAgICAgICAgICAgICAgICAgICAgIC YpNFXaLIEsWSRaTDPfOJIvPX2EPDZxKXEwGGLgQWBh ICAgICAgICAgICAgICAgICAgICAgICAgICAgICAgICAgICAgICAgICAgICAgICAgICAgICAgICAgICAg LXWyQAUuCYHsVNMqYMTfMIZvOVNyLIOzDWYlBJ1WVZMeOGWpGQRkOGVyDZFeQXYiBEEtEUZlZHSpGXPr ICAgICAgICAgICAgICAgICAgICAgICAgICAgICAgIC NgNGZvNLXcRRAgVQNjAOXnUYCwJLOnAPRsZBUmSJWpFPVyHLMhVT1HORIjYDFtWOFiDSCkSDGpPUWlEL AgICAgICAgICAgICAgICAgICAgICAgICAgICAgICAgICAgICAgICAgICAgICAgICAgICAgICAgICAgIC AhKNFmETFbCGYrXJRcQCFyAXLwZM1GCKBlGAZuVTKw ICAgICAgICAgICAgICAgICAgICAgICAgICAgICAgICAgICAgICAgICAgICAgICAgICAgICAgICAgICAg WSRsHTRiFSXzVXGaZUYlXSApYZJhWHKzTPWoLUFzCX5AZHSxCGLdEDThJYYbILAkIICaEQQtAMFnWYIu ICAgICAgICAgICAgICAgICAgICAgICAgICAgICAgIC HzXNAfXGIhPSSfTUKtEGNbVLNjXWTuXPHnBBZfKSCcKQRsMUKaYYZoBP4IVJDqFZHgPKWxZFDeXHJaSU AgICAgICAgICAgICAgICAgICAgICAgICAgICAgICAgICAgICAgICAgICAgICAgICAgICAgICAgICAgIC BxJGSiPBOeFJNeTLElMBUmJGQmORDmVA7LWKQmRYHh ICAgICAgICAgICAgICAgICAgICAgICAgICAgICAgICAgICAgICAgICAgICAgICAgICAgICAgICAgICAg RNLoJELlHXUpXEAnFSAtBXLhBKThTPWtPYEdRFYzYEVrKH6WPEPwPSEtCMRlXLGqSWYkWPJsCZZjKWCq ICAgICAgICAgICAgICAgICAgICAgICAgICAgICAgIC QkXSKvRGTmGOMsETMwOOHfGFQsRLPjLCVeVVRgDXSkYJBlSJSkHWQxVGLwFC3WWZ15hTJdm7J3YSQsYX 0ndyc/Ie3QNXneqwLqtGNmTS6BLaAnRI1ylp0FVkAdEJ6upi6CZWlSLdXbH7N1wOFeCFYaPUWLTjNdM2 3dWTwnXl46ANukFMTeQpUcRJs6Rl3UTqRfQ6noWBJy SlZ4WIHxCyM6HBLtAlN2ZOYqVhJlTOJeUAVmAD7CWLSeB195pmEcBH5JVt0LXyZbFZ4rkz2LJqEzCORn HtoXUhj0LGpfBW2NiSItcQOwKbRgDEIGTxGlU1jak3WhExLbWYDCKIywNL4He5JcxQPcRRj+Xg3ZNJ1k l1PnPKrmOkHgPE1xde1WGJnQNiPeV5AwbNndKKowPS WzbKHWztAxoDYcaPAPEPTcJPDzuVK9LRbqDMIfWEUhPIIjGA0nTCXvBFP3XkY1GZWLFX8MAAMtCYBjgX LtMZReCLHZRA5VDTjqZKB5WPDoacRavCZfBIopYC6XTRXjitPzAhBbXIOIOUl+Kd4XAP2ur7PnVKgoUv GkJQ0vnz2RZPuXXnBeY3I6sSKmV5U1WFyzNn3MNVIf VWLpKyGaGVRECLzoSK7VFK8wlcL7MC0UeKQtTGHuFWOloITwCYu8M47qyQCiQFhtZL9LLQF+Tiana+Pg0K XPZzCYGxPKOaFsHqNJFSHhTkW8HvU1RKo0ZfQ2WmSF39hCjxppBkRBzuRU8XZU4uILUyVZDBDP9RtHYt vG1xfeYpUUNwBIVDWnMnF13fpWEvEIJeCBK8HDRaAi 0PWLMzQ1UiugOirPzxvyJaXJHmTCKOLT4XTNodamUbxJFgqHwxHQ77nYhqMU4MCf6GCnGpUL7jug6MlF ZxWt2PENQjOP7OTGKhAKIrZEXnPEZ8JPBdRxZoRPiuPCGqQJRhJCQ1OPLhFHPyVR5QYwXjPPOiDvjgLQ FeUAAfBPSjjj8NBKBcZDXpDFkxZeGtADSvXJShOUxt RXSnQKHnYKN5PHNcRRMyCS6BJdTcYMZwQJXcLsmvCXEkQVAfss2UIIYvEXZyBiPeCwYnGRGzGCXoXRoi QBZvPVZ9GHX4ONGfLGEuVY9JNuPbCMGzKKOcZSSrTTMxOUThrf4SMQRhKIMuHAS7EyCsQVMbSYWkAYlo FTEtQBMcOvQ4DEPtKMBxJR9QLqNqKFZtQDE8BxDvUV MpUKOmsy3AEZOlZJTxFgv7LGCoOZRzBRQgAPviDYDyGVB1GVVdEJKhGULfGB4HMrWnANQgLHDoOtpaMP MtXVBzxo6ZZFDtYCJvVCRpNKDlQZLjCVVmSPwvGYZgWQO3CLj1CWEdBPKaSO8XZhQoDAHxELBpJYNnJC KxOEKlso8BALZrRCLiDwP7KQMoDTUmRXHoTRqzNMPs KPJ3LKC0KRJfFADnIZ1MNeAqEZSpZnwiFcCsBBTbVQPuxw8TEDSjTCKoRaP5WhPjMUAlDBPuLZwlBKPp FUH6PDC2PHLwLABbNY2WXmDwKOLvSrfbMEBsSXGyKZEuhd7HRQWpCFKfTBE9TuDyUQUxNXOkOMjaMRBh KOPtJQBgLVQdNATjFB2XLvCxZRFgVBQgObLlNZVjVY Fcsk8PWNNbHJN2DIQ3JLYfLFKqLJXcOJf7bsNdqSRfCHg1XJ5PV2CyepYrDbcPUo0Lj661EYE6CUZaJr 1MI8ifXp9rGRWoEVELQc3CDTk2RKTfBUB1WfR2TLOvKjH4QTOyJOF8SLJkYbFgAxMdPNa+FXc9LFB9Ib L5EvY0J5QaBRWaPwNhKrvwYAG7CcU9H3EbAB0lFA ANCj4+YNbxvKMkbGmmZURMZrFqZYI0PZfjBPOPKp9J ID Date Data Source [id number] 12/24/2020 06:49:29 AM [facility] Name Value Range Interpretation Code Description Data Joselin rce(s) Supporting Document(s) Choriogonadotropin.beta subunit free [Units/volume] in Serum or Plasm a <5 [facility] (NOTE)Levels between 5 and 25 [IU]/L may indicate earlypregnancy and should be repeated after 48 hours. 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 MICROCALCIFICATIONS PRESENT.B) BREAST LEFT, REDUCTIONS MAMMOPLASTY: BENIGN BREAST PARENCHYMA WITHFIBROADENOMATOID CHANGE. Sony Stephenson M.D.;Resident PathologistElectronically Signed By Lindsay Auguste M.D., Attending Audhwgcjnve45/14/2021 12:34:54Processed at [facility] [place] [address]. The attending pathologist named aboveattests that he/she has personally reviewed the relevant preparation(s)for the specimen, performed microscopic examination when indicated, andrendered the final diagnosis. Unless 'gross-only' is specified, the finaldiagnosis is based on a microscopic examination of front desk representative sectionsof tissue.Gross DescriptionThe specimen is received in two parts. Part A is received in formalin and labeled with the patient's name, "Mango" and "right breast tissue". It consists of a 396.3 g, 16.0 x 12.0x 4.5 cm aggregate of unoriented, irregular, yellow, soft fatty tissuefragments. There is no attached skin. The cut surfaces are predominantlyyellow, homogeneous adipose tissue, and minimal white-pink, dense fibroustissue. No discrete lesions are appreciated. Head Packager sections aresubmitted in two cassettes. Part B is received in formalin and labeled with the patient's name, "Mango" and "left breast tissue". It consists of a 509.5 g, 19.0 x 16.0 x3.5 cm aggregate of unoriented, irregular, yellow, soft fatty tissuefragments. Also identified within the aggregate is a 4.5 x 2.2 x 0.5 cmunoriented, irregular, manrique-pink, wrinkled, grossly unremarkable portion ofskin. The cut surfaces are predominantly yellow, homogeneous adiposetissue, and minimal white-pink, dense fibrous tissue. No discrete lesionsare appreciated. Head Packager sections are submitted in two cassettes,to include skin in B1. CTC\\This report may include one or more immunohistochemical stain results thatuse analyte specific reagents. All positive and negative controls havebeen reviewed by the attending pathologist and are satisfactory. The testswere developed and their performance characteristics determined by [facility] Pathology department. They have not been cleared or approved by the USFood and Drug Administration. The FDA has determined that such clearanceor approval is not necessary. Name Value Range Interpretation Code Description Data Joselin rce(s) Supporting Document(s) ID Date Data Source [id number] 12/19/2020 02:45:00 PM EDT [facility] Name Value Range Interpretation Code Description Data [facility] rce(s) Supporting Document(s) SARS coronavirus 2 RNA [Presence] in Res piratory specimen by MIC with probe detection Not Detected [facility] This lab was ordered by [facility] and re ported by [facility]. ID Date Data Source [id number] 12/19/2020 10:45:00 AM EDT [facility] Name Value Range Interpretation Code Description Data Joselin rce(s) Supporting Document(s) SARS-CoV-2 NEGATIVE [facility] This lab was ordered by [facility] and reported by [employer]. ID Date Data Source [id number] 11/18/2020 08:35:00 [place] [address] Patient Name: Sammy Cruz Exam Date: 11/18/20 : 1975 Ordering Doctor: Sami Bal Attending Doctor: Sami Bal CC: EXAM: RIGHT UPPER QUADRANT ULTRASOUND INDICATION: RUQ, ADENOMA OF LIVER COMPARISON: Right upper quadrant syndrome dated 12/05/2019. MR abdomen dated 12/05/2019. FINDINGS: Liver: Normal echogenicity. Stable 3.6 cm and 2.3 cm hepatic masses previously identified as an adenoma and hemangioma. Biliary: Shadowing stones noted in the neck of the gallbladder. No wall thickening or pericholecystic fluid. The bile ducts are non-dilated. Common duct diameter 4.7 mm. Pancreas: Partially visualized and grossly unremarkable. Right Kidney: The right kidney measures 9.3 cm in length. No renal masses or hydronephrosis. IMPRESSION: Stable appearance of the previously identified hepatic hemangioma and adenoma. Professional interpretation performed by [facility] at [facility] . End of diagnostic report: [id number] Signed: Sami Hogue MD 11/18/20 1115 Interpreted by: Sami HogueTranscribed by: Sami Hogue Name Value Range Interpretation Code Description Data Joselin rce(s) Supporting Document(s) ID Date Data Source [id number] 11/08/2020 12:52:00 PM EDT [address] [address] Patient Name: Sammy Cruz Exam Date: 11/08/20 : 1975 Ordering Doctor: Mary Valdez DO Attending Doctor: Mary Valdez DO CC: [facility] BILATERAL BREAST MRI EXAMINATION INDICATION: Family history of breast cancer. COMPARISON: Mammogram 11/08/2020. Prior comparison breast MRI 11/08/2017. TECHNIQUE: MRI examination of bilateral breasts was performed in standard fashion in a dedicated breast coil with multiple image sequences obtained with and without ProHance consisting of the administration of 15 from a 15 cc vial. [employer] was utilized for image analysis including subtraction, kinetic curve generation and MIP reconstructions. FINDINGS: There is no background parenchymal enhancement. The overall breast parenchymal composition is heterogeneous. There is no dominant mass or suspicious pja-tfgw-ebzx enhancement to suggest malignancy bilaterally. No concerning skin or nipple changes. There is no axillary or parasternal adenopathy bilaterally. The visualized chest wall appears normal. The lungs, mediastinum and upper abdomen are not well evaluated on this study but appear grossly normal. A T2-weighted mass in the right lobe of the liver is identified measuring 2 cm in diameter, unchanged. A mass previously described in the left lobe of liver is not visualized on the current study. IMPRESSION: Normal breast MRI. BI-RADS 1 - NEGATIVE Professional interpretation performed at Dr. Dano Hansen [facility] at [facility] . End of diagnostic report: [id number] Signed: Ernie Dale MD 11/11/20 1647 Interpreted by: Ernie DaleTranscribed by: Ernie Dale Name Value Range Interpretation Code Description Data Joselin rce(s) Supporting Document(s) ID Date Data Source [id number] 11/08/2020 11:52:00 [place] [address] Patient Name: Sammy Cruz Exam Date: 11/08/20 : 1975 Ordering Doctor: Mary Valdez DO Attending Doctor: Mary Valdez DO CC: BILATERAL SCREENING TOMOSYNTHESIS 3D DIGITAL MAMMOGRAM WITH CAD INDICATION: Screening COMPARISON: Mammograms dating back to 05/11/2016 LAST CLINICAL BREAST EXAM: October 2020 [facility] Breast Cancer Risk Evaluation (Tyrer-Cuzick Model v.8) This patient - Lifetime risk (to age 85): 20.6% Lifetime population risk (to age 85): 12.0% Probability BRCA 1: 0.01% Probability BRCA 2: 0.04% TECHNIQUE: Bilateral craniocaudal and medial lateral oblique 3D digital mammograms were obtained using tomosynthesis and CAD. FINDINGS: The breast tissue is heterogeneously dense which may obscure small masses (Breast composition Category C). No primary or secondary signs of malignancy are seen. IMPRESSION: Normal mammogram. Recommend routine yearly mammogram. This patient has an increased lifetime risk for the development of invasive breast cancer and MRI screening of the breasts should be considered. We offer Breast MRI Imaging at our [facility] at [facility] and [facility]. The patient is scheduled for a breast MRI exam today. BI-RADS 1 - NEGATIVE Professional interpretation performed at [facility] . End of diagnostic report: [id number] Signed: Boo Quintana MD 11/14/20 1216 Interpreted by: Boo QuintanaTranscribed by: Boo Quintana Name Value Range Interpretation Code Description Data Joselin rce(s) Supporting Document(s) ID Date Data Source [id number] 09/20/2020 02:57:57 PM EDT [facility] Name Value Range Interpretation Code Description Data Joselin rce(s) Supporting Document(s) Progress Note [facility] ZNHBRl5kMwQJJdXu08/DSWblRUGuh1YnHXdoKGz5EKtwKYCeO7ZpLYP7yP4yZEN9MIgVWuRsFpFoVDI1 m [file] OEiLp7VrbeF5BzwpG6h7gkl8m/4bBYMrUtFlk1JVtFkYJu2X1d3RPnG9rdHT/pulpwood buyer/dL0cJyb/pTV+BJI [file] ICAgICAgICAgICAgICAgICAgICAgICAgICAgICAgICAgICAgICAgICAgICAgICAgICAgICAgICAgICAg ICAgICAgICAgICAgICAgICAgICAgDQogICAgICAgIC AgICAgICAgICAgICAgICAgICAgICAgICAgICAgICAgICAgICAgICAgICAgICAgICAgICAgICAgICAgIC AgICAgICAgICAgICAgICAgICAgICAgICAgICAgICAgDQogICAgICAgICAgICAgICAgICAgICAgICAgIC AgICAgICAgICAgICAgICAgICAgICAgICAgICAgICAg ICAgICAgICAgICAgICAgICAgICAgICAgICAgICAgICAgICAgICAgICAgDQogICAgICAgICAgICAgICAg ICAgICAgICAgICAgICAgICAgICAgICAgICAgICAgICAgICAgICAgICAgICAgICAgICAgICAgICAgICAg ICAgICAgICAgICAgICAgICAgICAgICAgDQogICAgIC AgICAgICAgICAgICAgICAgICAgICAgICAgICAgICAgICAgICAgICAgICAgICAgICAgICAgICAgICAgIC AgICAgICAgICAgICAgICAgICAgICAgICAgICAgICAgICAgDQogICAgICAgICAgICAgICAgICAgICAgIC AgICAgICAgICAgICAgICAgICAgICAgICAgICAgICAg ICAgICAgICAgICAgICAgICAgICAgICAgICAgICAgICAgICAgICAgICAgICAgDQogICAgICAgICAgICAg ICAgICAgICAgICAgICAgICAgICAgICAgICAgICAgICAgICAgICAgICAgICAgICAgICAgICAgICAgICAg ICAgICAgICAgICAgICAgICAgICAgICAgICAgDQogIC AgICAgICAgICAgICAgICAgICAgICAgICAgICAgICAgICAgICAgICAgICAgICAgICAgICAgICAgICAgIC AgICAgICAgICAgICAgICAgICAgICAgICAgICAgICAgICAgICAgDQogICAgICAgICAgICAgICAgICAgIC AgICAgICAgICAgICAgICAgICAgICAgICAgICAgICAg ICAgICAgICAgICAgICAgICAgICAgICAgICAgICAgICAgICAgICAgICAgICAgICAgDQogICAgICAgICAg ICAgICAgICAgICAgICAgICAgICAgICAgICAgICAgICAgICAgICAgICAgICAgICAgICAgICAgICAgICAg ICAgICAgICAgICAgICAgICAgICAgICAgICAgICAgDQ l3K3lrXMFmCWRfLN5bCBy0Eu2+SUeRBhOiZJW5gsThqT2GKV7un2NsBPpjMUYzt7EaEIx0HP6IWQKvPZ ylUX8DTVzuot5VRRKtYMKksWCTt1mqGxBjIJD0YBYjRcfnFD1RKFVfE1ektuAzQJRsQFUYWGrwMQQZGX yjZLBSWBWyHYNbZfVvSIlgXH8Uv5KdsHH7KKu+Pg0K WH8nk6SkTGopRSEoJN9ste3ZQYkVCtKzR2KfcaB8URB7CTOwNl8TJWMuWULulQGcQuUaDRDJHzFgD6Dy iK24FBAZKq3+UCbsisQaNalAFcN3IKLpj1GiJJe4QR8PEMDrCIm1kHRvBTUrT2Bkj8FrDw68IVWgDwky UGWgj5pdjsWpSmEBjHEciDjqsCVqKS6ORGI3LHobDs 8oINUkHNGhLeVqNSXXVT1KCPFlIWOjqHLqIPIwYXFSWS7QZHclPOB9UIHnupKsuTQaASfxZD9EWRRwrg QgMjUgMCBSDQo+Rs2CXD3pa2CwSEehKnUjLB0smx1IPYxHIiJmE2E5eQBsW4Z5TIqlFp2KCERhNBQqLi BvTQANTSffVY5WMM1lxbK9XF2UlPCnZRLnMCNkwPXk LQi0T04cwXVqSLtzVG1AMJX+Tiana+Re3DDGWcMXKePEYqAoSoYMWPAqGaU2UuZ9TBg7WmG9TqQK39zTzk awYnGUclSW0KLD9wYTMcXTDEJV8XmTPlfL5uraGeKAHqGOSGEzZnR81gkBNaGTFmBUB6PEMqGe8VMKZp U2HmwwLulTglwzNaNKDjFRVOWP5XOCogevExdBXjzG kfZH87xRxwQZ0FUx0BUnOtLB8vug6LxOCuDb6FQYLaEK3EUSUkBFPvOOSfONW1HNFgEjDdSYakCTXlAB OzCZJ5DGRyOWMgDO5CYjCpOWQqQds8HxKjCPVuMEXxyf4MGVQwHLK7QQN0JNYuUSXyNNEvTMcsLDJaPX ArAGF8BDMwHQGpFZ4GPlArJQIeMFI9NOJtSZLrWYHd xp8ELGLvUSLtLaunJWSiNIIbQWPyDWsoYOIyYWD0Dhr8RDRbBWLkTQ0WTwGcCSFyENM2XXItBYIqFMZa zw9IHKTmMFHuPOX3NEPfBSYeGBUpJKurPSRlWUAsZPB1QMZbNZCyNZ7BNkDsEWMeFTE0ONsvGLRjOBRu iw6AAEDiKFXoPOV7SaUmVTCgJJWjHSiqLAHyTPN0WT AgESAfKPHyLP6KSqTsVBKxUEYySXZaTJKmCUUcxj4PIECdBQOfRGYbRgJuMZIeHUCkOIknOGFePPY5Il ukGYCaAWEpBC0DHyMtWKHlXSH4GRUcSPStKPPima0HUTDdKQOsYqp0DfZqQCVjUAYbXOjqHIQhVJA0ES E7TPRgLDNaYK1KXpVoWOWmMkv9PYykCLCnIFQgaj9J CJJlXPXyCyzjNSLiFGJrEMYxAAteCTNgJCT2AoBjCZUlQYAeOW3IQtVkAAMtHpb4UKnoWWVqXMTqwb8O RKHlNHRfORw3CKPlOITvZWKkEPrzZJCkNGOdKyG4JMVvWTUlCT2MGsJuRNDrOVBmOldkOMPtWJCwru9N SJYsUAN3FCArWgZmKBEhVAEuUYs6gyLqqGQzDTz4LB 2SX0GbznYbHuaSVc3Ie284ULG8EJKqQo7ZF5xpRt9bYOGsHGYKOz5EQRi8LeM0TxfxSZCiEmrtFdXfX5 IqHIXaPPumFZEkJcU7TIJ+NNyzDCfzNKJsOqHjVDOzUUK8X7Q8AZNiFRP2ARXsKJTzKS1xGOSIBw9+DQ fnvFXrjJrlLPFHGrMrZzb6OLfuHSAYQs1S ID Date Data Source [id number] 08/20/2020 11:51:00 AM T [facility] Run: 08/20/20 1151 INTERFACED REPORT Name: Sammy Cruz Age/Sex: 45/F Location: [facility] Acct: [id number] Unit: [id number] Status: REG REF Room/Bed: Re08/15/20 Disch: Att Dr: Mary Valdez DO Spec Num: [id number] Recd: 08/16/2046 Status: JOSE Lezama Num: [id number] SpType: SURGICAL Sub Dr: Mary Valdez DO D485 Uncertain behavior of neoplasm, skin Excision ProcGROSS AND MICROSCOPIC - L4/2 2019, History of fibro- epithelial polyps 1. Abdomen biopsy, right 2. Left chest lesion This case consists of two specimens, both are received in formalin. 1. The specimen is l abeled with the patient's name and right abdomen consists of a single piece of skin measuring 0.8 x 0.4 x 0.2 centimeter in diameter. On the external surface of the skin there is yellow-brown lesion measuring 0.6 x 0.3 centimeter. The lesion is surrounded by a thin rim of normal-appearing skin. The specimen serially sectioned and entirely submitted. 2. The specimen is labeled with the patient's name and left chest consists of a single piece of skin measuring 1 x 0.4 x 0.2 centimeter in diameter. The external surface shows yellow-brown lesion. The specimen is serially sectioned and entirely submitted. (08-16-20 /cjs) 1 and 2. Skin, right abdomen and left chest, excision: Pigmented seborrheic keratosis 665 x 2 Signed (signature on file) Vitor Duke MD 08/20/20 Emily1, Ross Pat END OF REPORT Name Value Range Interpretation Code Description Data Joselin rce(s) Supporting Document(s) ID Date Data Source [id number] 07/22/2020 12:00:00 AM EDT [facility] Name Value Range Interpretation Code Description Data Joselin rce(s) Supporting Document(s) IDNOW COVID-19 rapid diagnostic test (nucleic acid amp lification test NAAT) negative [facility] This lab was ordered by [facility] and re ported by [facility]. ID Date Data Source [id number] 06/24/2020 08:30:00 AM EDT [facility] Name Value Range Interpretation Code Description Data Joselin rce(s) Supporting Document(s) Follow Up [facility] MULTAf9bHsTEMkDuNEBmIxwRGBzgBRxgCUCtX1R9WRwzCw0JJBvqhrAlXZXqFi2+FIJrJF2ojh9jOUCb gMy [file] kLF5RUgILmMr6LiW1FMILpz7lbXj+5iqjYqr7R+ [file] 4sxyiGHjB9a8ZJVd0G5hLfE5EJQTeiPYV8X7pWZ6+Ana María+BJ7HIG0rNVqRQC2FCuwSfH+pdcezvR+l9ZZ [file] DOG BOARDER+gF3z3Lk6f809aX+MZ/Vy+7dWokaTHaMpHsmAxjrZ2g10Qzk8VQJMqy0j3P5HyW5iFoS+qc5nKQ3I [file] OtOfOWVu+RCKY0XRa6P30KTJL//dry kiln loader/byDztws4kYflk9F4w9i6SvM3DAcCTs/eQmGH7z69MNHlDeOeD [file] nuclear medicine tech+6NjnYl2wKkAk7efYCngxRNP60IjrHClDjIKhirmR0w7D5gdwGrwwSI03sXwY7mXsho+ugDnuyJfJ/ [file] otf4tZiXEV4ljHaG80LZbrE0zOTrzGUle2B5jR3XlogQwmsAUIb5mBgAHo9S4q+Environmental Intern/EC1hEA4/UCfLuX zSxX7j+2SnXNaEaZPOkpHB7CV0TsE1Uzr4KXiCR8Gs KUtg5hHUHlEewX2DEGfM9eY72juk2WMD6R4mkOvCoUL7jS+n69MVsSjxs2kA4BFsJhN7mtSwfwuoqFIF y/SO66tgRYRqUc6qnBphtvP+SUv3JwILFUL0BFmciDBDFJ6i2fJEmCMC9VB41GDUEgwfoNp6s+gG2nGp 3W9POl0tswJFF8s0po8Cco8AvEGXvkyKCGwA/K9whP rSYuw5O39Yp1EXC/WE2sBQL+Q/Jw+iSpkBBZwozY/hX9aXoTrXqTjlWqWMV/KrUg5jZAWKydTBGaIx+S 1H/GgCUG3gcOovyUULqI06bY14rEjPLRzcBuO6aOlzqR/tyAsHlzLtmMHVYEqAPInxX7iLKnQT6ZaJqF wPotZMN/32BpxbMYjDsjI6TRIUtWOd0Y/1iH8Nlq3c z1LA6AdG74fAiyNTc2ABbZOpr1TJj5bpW67uiw0K/1+24vEUe0waX2UQ2MEs/gwuoohHUhB8P12A7POz U1R0AhMK/Jud5g1xYY6b58sZerVZSAXO03HM50W9VfeSzr8qzMX/qTiEezVKd0oqRj5C+MX+krP0Ru1l ALky9DzhaaIn6PbWKE032KS1pSSIem+mu7UiFm1W6S EHcPuzka2X4vkOxkeezx/bJYoUbIl8BZxQszDllnwljCS3aIfrlex42ot72wMziRmcceahBRQCmkrgoy [file] gizjT/KbxkI3GuW9n1q7W9xOTUKdbeRaXnAs4LZcLOKAEY6JM6AyJkGRK7DfEHYbzPWve3wVvLKo/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 On the external surface of the skin there is a 0.3 x 0.2 cm, yellow-pink and raised lesion surrounded by a rim of normal appearing skin. The specimen is serially sectioned and entirely submitted. (02-02-20 /cjs) Skin, left anterior tibia, biopsy: - Melanocytic nevus, intradermal type, completely excised /mm 02/05/20 665 Signed (signature on file) Vitor Duke MD 02/05/20 3534, MDory Dewey END OF REPORT Name Value Range Interpretation Code Description Data Joselin rce(s) Supporting Document(s) ID Date Data Source "" 12/13/2019 10:23:[address] [address] Patient Name: Rarick,Sammy R Exam Date: 12/13/19 : 1975 Ordering Doctor: Sami Bal Attending Doctor: Sami Bal CC: EXAM: RIGHT UPPER QUADRANT ULTRASOUND INDICATION: HEMANGIOMA OF LIVER - D18.03 COMPARISON: Right upper quadrant ultrasound dated 12/26/2018 and MR abdomen dated 11/26/2017. FINDINGS: Liver: Echogenic mass is again identified left hepatic lobe measuring 3.4 x 3.8 x 2.4 cm and previously measured 3.1 x 3.4 x 2.1 cm. Right hepatic lobe echogenic nodule measures 2.2 x 2.0 x 2.6 cm and previously measured 2.3 x 2.0 x 2.0 cm. Biliary: Shadowing stones are noted in the gallbladder. No gallbladder wall thickening or pericholecystic fluid. The bile ducts are non- dilated. Common duct diameter 4.1 mm. Pancreas: Partially visualized and grossly unremarkable. Right Kidney: The right kidney measures 9.3 cm in length. 0.5 cm midpole simple renal cyst. IMPRESSION: Stable appearance of the echogenic nodule masses within the liver previously identified as a hemangioma and adenoma. Professional interpretation performed by [facility] Medical Imaging at [facility] . End of diagnostic report: [id number] Signed: Sami Hogue MD 12/13/19 1039 Interpreted by: Sami HogueTranscribed by: Sami Hogue Name Value Range Interpretation Code Description Data Joselin rce(s) Supporting Document(s) Procedure Social History Code Duration Value Status Description Data Source(s ) Smoking 11/26/2020 12:00:00 AM EDT Non Smoker completed Non Smoke r [facility] ([facility]) Alcohol intake 09/20/2020 12:00:00 AM EDT Current drinker of al cohol (finding) completed Current drinker of alcohol (finding) [facility] Tobacco use and exposure 09/20/2020 12:00:00 AM EDT Never used co mpleted Never used [facility] Smoking 09/20/2020 12:00:00 AM EDT Never smoker completed Never s akker [facility] Smoking 08/22/2020 12:00:00 AM EDT Never smoked tobacco (findi ng) completed Never smoked tobacco (finding) [facility] ([facility]) Smoking 08/15/2020 12:00:00 AM EDT Never smoked tobacco (findi ng) completed Never smoked tobacco (finding) [facility] ([facility]) Smoking 07/11/2020 12:00:00 AM EDT Never smoked tobacco (findi ng) completed Never smoked tobacco (finding) [facility] ([facility]) Smoking 06/12/2020 04:25:00 PM EDT Never smoked tobacco (findi ng) completed Never smoked tobacco (finding) [facility] ([facility]) Smoking 02/01/2020 12:00:00 AM EST Never smoked tobacco (findi ng) completed Never smoked tobacco (finding) [facility] ([facility]) Smoking 12/27/2019 12:00:00 AM EST Never smoked tobacco (findi ng) completed Never smoked tobacco (finding) [place] ([facility]) Smoking 11/16/2019 04:37:33 PM EDT Never smoked tobacco (findi ng) completed Never smoked tobacco (finding) [facility] ([facility]) Vital Signs ID Date Data Source UNK Name Value Range Interpretation Code Description Data Source(s) Systolic blood pressure 116 mm[Hg] 116 mm[Hg] [facility] ([facility]) Diastolic blood pressure 64 mm[Hg] 64 mm[Hg] [facility] ([facility]) Heart rate 77 /min 77 /min [facility] ([facility]) Oxygen saturation in Arterial blood by Pulse oximetry 100 % 100 % [facility] ([facility]) Body height 64 [in_i] 64 [in_i] [facility] ([facility]) 5'4" Body weight 124.50 [lb_av] 124.50 [lb_av] [facility] Body mass index (BMI) [Ratio] 21.4 kg/m2 21.4 k g/m2 [facility] ([facility]) [place] body weight 120 [lb_av] 120 [lb_av] [facility] Body weight 56.473 kg 56.473 kg [facility] ([facility]) Body surface area Derived from formula 1.60 m2 1.60 m2 [facility] ([facility] ) Systolic blood pressure 122 mm[Hg] 122 mm[Hg] G [facility] ([facility]) Diastolic blood pressure 82 mm[Hg] 82 mm[Hg] [facility] ([facility]) Heart rate 82 /min 82 /min [facility] ([facility]) Body temperature 98.1 [degF] 98.1 [degF] [facility] Body weight 127.6 [lb_av] 127.6 [lb_av] [facility] Y ([facility]) PhenX - pain, abdominal - type and intensity protocol 0 0 [facility] ([facility]) Oxygen saturation in Arterial blood by Pulse oximetry 99 % 99 % [facility] ([facility]) Inhaled oxygen flow rate 0 L/min 0 L/min [facility] ([facility]) Inhaled oxygen concentration 21 % 21 % [facility] ([facility]) Heart rate 50 /min 50 /min [facility] ([facility]) Diastolic blood pressure 61 mm[Hg] 61 mm[Hg] [facility] ([facility]) Respiratory rate 18 /min 18 /min [facility] ([facility]) Body temperature 97.3 [degF] 97.3 [degF] [facility] ([facility]) Body weight 128 [lb_av] 128 [lb_av] [facility] ([facility]) PhenX - pain, abdominal - type and intensity protocol 0 0 [facility] ([facility]) Oxygen saturation in Arterial blood by Pulse oximetry 100 % 100 % [facility] ([facility]) Inhaled oxygen flow rate 0 L/min 0 L/min [facility] ([facility]) Inhaled oxygen concentration 21 % 21 % [facility] ([facility]) Systolic blood pressure 127 mm[Hg] 127 mm[Hg] G [facility] ([facility]) Systolic blood pressure 114 mm[Hg] 114 mm[Hg] G [facility] ([facility]) Diastolic blood pressure 68 mm[Hg] 68 mm[Hg] [facility] ([facility]) Heart rate 72 /min 72 /min [facility] ([facility]) Heart rate rhythm 1 1 [facility] Y ([facility]) Respiratory rate 18 /min 18 /min [facility] ([facility]) Body temperature 97.2 [degF] 97.2 [degF] [facility] ([facility]) Body height 62.5 [in_i] 62.5 [in_i] [facility] ([facility]) Body weight 129 [lb_av] 129 [lb_av] [facility] ([facility]) Body mass index (BMI) [Ratio] 23.2 kg/m2 23.2 k g/m2 [facility] ([facility]) Body surface area Derived from formula 1.60 m2 1.60 m2 [place] ([facility]) PhenX - pain, abdominal - type and intensity protocol 0 0 [facility] ([facility]) Oxygen saturation in Arterial blood by Pulse oximetry 97 % 97 % [facility] ([facility]) Inhaled oxygen flow rate 0 L/min 0 L/min [place] ([facility]) Inhaled oxygen concentration 21 % 21 % [facility] ([facility]) Systolic blood pressure 122 mm[Hg] 122 mm[facility]Hg] [facility] Heart rate 76 /min 76 /min [facility] ([facility] Heart rate rhythm 1 1 [place] ([facility]) Respiratory rate 18 /min 18 /min [place] ([facility]) Body temperature 99 [degF] 99 [degF] [facility] ([facility]) Body weight 126.5 [lb_av] 126.5 [lb_av] [place] [facility] ([facility]) PhenX - pain, abdominal - type and intensity protocol 0 0 [facility] ([facility]) Diastolic blood pressure 76 mm[Hg] 76 mm[Hg] [facility] ([facility]) Oxygen saturation in Arterial blood by Pulse oximetry 99 % 99 % [place] ([facility]) Inhaled oxygen flow rate 0 L/min 0 L/min [facility] ([facility]) Inhaled oxygen concentration 21 % 21 % [place] ([facility]) Systolic blood pressure 132 mm[Hg] 132 mm[Hg] G [place] ([facility]) Diastolic blood pressure 71 mm[Hg] 71 mm[Hg] [facility] ([facility]) Heart rate 84 /min 84 /min [facility] ([facility]) Respiratory rate 17 /min 17 /min [place] ([facility]) Body temperature 97.4 [degF] 97.4 [degF] [facility] ([facility]) Body weight 128 [lb_av] 128 [lb_av] [facility] PhenX - pain, abdominal - type and intensity protocol 0 0 [facility] ([facility]) Oxygen saturation in Arterial blood by Pulse oximetry 98 % 98 % [facility] ([facility]) Inhaled oxygen flow rate 0 L/min 0 L/min [facility] ([facility]) Inhaled oxygen concentration 21 % 21 % [facility] ([facility]) PhenX - pain, abdominal - type and intensity protocol 0 0 [facility] ([facility]) Inhaled oxygen concentration 21 % 21 % [facility] ([facility]) Oxygen saturation in Arterial blood by Pulse oximetry 99 % 99 % [facility] ([facility]) Inhaled oxygen flow rate 0 L/min 0 L/min [facility] ([facility]) Systolic blood pressure 120 mm[Hg] 120 mm[Hg] G [place] ([facility]) Diastolic blood pressure 70 mm[Hg] 70 mm[Hg] [facility] ([facility]) Heart rate 91 /min 91 /min [facility] ([facility]) Respiratory rate 18 /min 18 /min [facility] ([facility]) Body temperature 97.9 [degF] 97.9 [degF] [facility] ([facility]) Body weight 124 [lb_av] 124 [lb_av] [facility] ID Date Data Source [id number] 12/29/2020 12:35:03 PM [facility] Name Value Range Interpretation Code Description Data Source(s) WEIGHT RECORDED 127 lb 127 lb [facility] Body height Measured 64 in 64 in [facility] Patient Treatment Plan of Care Planned Activity Planned Date Details Description Data Source (s) Clindamycin 0.01 MG/MG Topical Gel 10/30/2020 12:00:00 AM EDT [place] ([facility]) Benzoyl Peroxide 0.05 MG/MG Topical Gel 04/04/2020 12:00:00 AM [facility] ([facility]) Clindamycin 0.01 MG/MG Topical Gel 04/04/2020 12:00:00 AM [facility] ([facility]) Clindamycin 0.01 MG/MG Topical Gel 10/10/2019 12:00:00 AM [facility] ([facility]) Cyclobenzaprine hydrochloride 10 MG Oral Tablet 09/14/2016 12:00:00 AM [facility] ([facility]) Ibuprofen 800 MG Oral Tablet 09/14/2016 12:00:00 AM [facility] ([facility])
[2021-01-06] MEDS ORDERED: OXYC-517 (10:48)
--- NOTE | 2021-01-06 15:28 | REP ---
INDICATION: pain, recent surgery. COMPARISON: None. TECHNIQUE: Multiple ultrasonographic images of the deep venous structures of the left lower extremity were obtained from the inguinal ligament to the ankle. Venous compression techniques, color doppler imaging, and augmentation techniques were also obtained where appropriate. As per the ACR guidelines the anterior tibial vein can not be effectively evaluated. Only compression techniques in the calf on the peroneal and posterior tibial veins was attempted/performed. FINDINGS: There is no abnormal echogenic material seen within any of the visualized deep venous structures that would suggest acute thrombosis. Coaptation is unremarkable throughout. Doppler interrogation shows an expected response to respiratory variability and augmentation in the thigh. Compression techniques in the calf showed no abnormality. The color flow images show what appears to be a normal vascular pattern throughout the thigh. IMPRESSION: There is no ultrasonographic evidence of deep venous thrombosis involving any of the visualized deep venous structures of the left lower extremity as described above. <Electronically signed by Axel Morrell > 01/06/21 [id number]
--- OUTSIDE RECORDS SUMMARY | 2021-01-06 16:11 | CCD ---
Author Author [facility] Organization [facility] Address Unknown Phone Unavailable Care Team Providers Care Industrial Relations Analyst Name Role Phone Giovanna HUITRON MD Unavailable [...] Mary DO Unavailable Unavailable KANE, MONE OCHOA PAINT MIXER-C Unavailable Unavailable KANE, MONE OCHOA PAINT MIXER-C Unavailable Unavailable KANE, MONE OCHOA PAINT MIXER-C Unavailable Unavailable KANE, MONE OCHOA PAINT MIXER-C Unavailable Unavailable KANE, MONE OCHOA PAINT MIXER-C Unavailable Unavailable KANE, MONE OCHOA PAINT MIXER-C Unavailable Unavailable KANE, MONE OCHOA PAINT MIXER-C Unavailable Unavailable KANE, MONE OCHOA PAINT MIXER-C Unavailable Unavailable KANE, MONE OCHOA PAINT MIXER-C Unavailable Unavailable KANE, MONE OCHOA PAINT MIXER-C Unavailable Unavailable KANE, MONE OCHOA PAINT MIXER-C Unavailable Unavailable KANE, MONE OCHOA PAINT MIXER-C Unavailable Unavailable KANE, MONE OCHOA PAINT MIXER-C Unavailable Unavailable KANE, MONE OCHOA PAINT MIXER-C Unavailable Unavailable KANE, MONE OCHOA PAINT MIXER-C Unavailable Unavailable KANE, MONE OCHOA PAINT MIXER-C Unavailable Unavailable KANE, MONE OCHOA PAINT MIXER-C Unavailable Unavailable Ray, L Mary DO Unavailable [...] Unavailable Darline BAL MD Unavailable Unavailable Darline BLA MD Unavailable Unavailable Darline BAL MD Unavailable [...] Unavailable Darline BAL MD Unavailable Unavailable Darline BLA MD Unavailable Unavailable Darline BAL MD Unavailable [...] Unavailable Unavailable Darline BAL MD Unavailable Unavailable Medford, J Ochoa DIRECTOR OF SOCIAL WORK Unavailable Unavailable Medford, J Ochoa DIRECTOR OF SOCIAL WORK Unavailable Unavailable Medford, J Ochoa DIRECTOR OF SOCIAL WORK Unavailable Unavailable Medford, J Ochoa DIRECTOR OF SOCIAL WORK Unavailable Unavailable Medford, J Ochoa DIRECTOR OF SOCIAL WORK Unavailable Unavailable Medford, J Ochoa DIRECTOR OF SOCIAL WORK Unavailable Unavailable Medford, J Ochoa DIRECTOR OF SOCIAL WORK Unavailable Unavailable Medford, J Ochoa DIRECTOR OF SOCIAL WORK Unavailable Unavailable Medford, J Ochoa DIRECTOR OF SOCIAL WORK Unavailable Unavailable Medford, J Ochoa DIRECTOR OF SOCIAL WORK Unavailable Unavailable Ray, L Mary DO Unavailable [...] BERNADINE Jacobs, Ashanti Unavailable Duca, A Jennifer DIRECTOR OF SOCIAL WORK-C Unavailable Unavailable Duca, A Jennifer DIRECTOR OF SOCIAL WORK-C Unavailable Unavailable Duca, A Jennifer DIRECTOR OF SOCIAL WORK-C Unavailable Unavailable Duca, A Jennifer DIRECTOR OF SOCIAL WORK-C Unavailable Unavailable Duca, A Jennifer DIRECTOR OF SOCIAL WORK-C Unavailable Unavailable Duca, A Jennifer DIRECTOR OF SOCIAL WORK-C Unavailable Unavailable Duca, A Jennifer DIRECTOR OF SOCIAL WORK-C Unavailable Unavailable Duca, A Jennifer DIRECTOR OF SOCIAL WORK-C Unavailable Unavailable Duca, A Jennifer DIRECTOR OF SOCIAL WORK-C Unavailable Unavailable Duca, A Jennifer DIRECTOR OF SOCIAL WORK-C Unavailable Unavailable Duca, A Jennifer DIRECTOR OF SOCIAL WORK-C Unavailable Unavailable Duca, A Jennifer DIRECTOR OF SOCIAL WORK-C Unavailable Unavailable Duca, A Jennifer DIRECTOR OF SOCIAL WORK-C Unavailable Unavailable Duca, A Jennifer DIRECTOR OF SOCIAL WORK-C Unavailable Unavailable Duca, A Jennifer DIRECTOR OF SOCIAL WORK-C Unavailable Unavailable Duca, A Jennifer DIRECTOR OF SOCIAL WORK-C Unavailable Unavailable Duca, A Jennifer DIRECTOR OF SOCIAL WORK-C Unavailable Unavailable Duca, A Jennifer DIRECTOR OF SOCIAL WORK-C Unavailable Unavailable Duca, A Jennifer DIRECTOR OF SOCIAL WORK-C Unavailable Unavailable Duca, A Jennifer DIRECTOR OF SOCIAL WORK-C Unavailable Unavailable Duca, A Jennifer DIRECTOR OF SOCIAL WORK-C Unavailable Unavailable Duca, A Jennifer DIRECTOR OF SOCIAL WORK-C Unavailable Unavailable Duca, A Jennifer DIRECTOR OF SOCIAL WORK-C Unavailable Unavailable Duca, A Jennifer DIRECTOR OF SOCIAL WORK-C Unavailable Unavailable Duca, A Jennifer DIRECTOR OF SOCIAL WORK-C Unavailable Unavailable Duca, A Jennifer DIRECTOR OF SOCIAL WORK-C Unavailable Unavailable Duca, A Jennifer DIRECTOR OF SOCIAL WORK-C Unavailable Unavailable Duca, A Jennifer DIRECTOR OF SOCIAL WORK-C Unavailable Unavailable Duca, A Jennifer DIRECTOR OF SOCIAL WORK-C Unavailable Unavailable Duca, A Jennifer DIRECTOR OF SOCIAL WORK-C Unavailable Unavailable Duca, A Jennifer DIRECTOR OF SOCIAL WORK-C Unavailable Unavailable Duca, A Jennifer DIRECTOR OF SOCIAL WORK-C Unavailable Unavailable Duca, A Jennifer DIRECTOR OF SOCIAL WORK-C Unavailable Unavailable Duca, A Jennifer DIRECTOR OF SOCIAL WORK-C Unavailable Unavailable Duca, A Jennifer DIRECTOR OF SOCIAL WORK-C Unavailable Unavailable Duca, A Jennifer DIRECTOR OF SOCIAL WORK-C Unavailable Unavailable Duca, A Jennifer DIRECTOR OF SOCIAL WORK-C Unavailable Unavailable Duca, A Jennifer DIRECTOR OF SOCIAL WORK-C Unavailable Unavailable Bal, Sami PA Unavailable Unavailable [...] is protected by Article 27-F of the [facility] Public Health law. If you continue you may have access to information: Regarding HIV / AIDS; Provided by facilities licensed or operated by the [facility] Office of Mental Health; or Provided by the [facility] Office for People With Developmental Disabilities. If such information is present, then the following [facility] mandated warning applies: This information has been [...] law may result in a fine or snf sentence or both. A general authorization for the release of medical or other information is NOT sufficient authorization for further disc losure. Advance Directives Directive Description Test Facility Engineer Local Area Network Administrator Status Observation Descr iption Data Source(s) Ebola Screening Performed completed Ebol a Screening Performed [facility] Note: Within the last month, have you [...] Outpatient Attender: Jennifer MALDONADO 01/30/2021 12:00:00 AM [facility] Outpatient Attender: Jennifer MALDONADO 01/02/2021 12:00:00 AM [facility] Outpatient Attender: Jennifer MALDONADO [id number] 12/16 12:00:00 AM EST - 12/31/2020 11:25:34 AM [facility] Outpatient Attender: LONA HUITRON MDAdmitter: LONA HUITRON MD [id number] 12/24/2020 12:00:00 AM EST - 12/24/2020 12:00:00 AM [facility] macromastia Patient admitted. Outpatient Attender: OCHOA Prieto/Ajit/Isak/Remi lam 11/26/2020 08:00:00 AM EDT [facility] ([facility], ) Outpatient Attender: Sami ABDUL 11/18/2020 07 :45:00 AM EDT D13.4 adenoma of liver D18.03 [facility] D13.4 adenoma of liver D18.03 hemangioma of liver <td ID="encounterTypeDescriptionID0">Jo-Ann rt Update</td><td>Ashanti Jacobs RN</td><td></td><td>11/14/2020</td><td>1:59PM</td><td>11:59PM</td><td></td>Unkno Attender: Ashanti Jacobs RN 11/14/2020 01 :59:00 PM EDT - 11/14/2020 11:59:00 PM EDT [facility] ([facility]) Outpatient Attender: Mary Valdez DO 11/08/2020 11:20: 00 AM EDT Z12.39 fam hx breast ca [facility] Z12.39 fam hx breast ca Outpatient Attender: LONA HUITRON MDReferrer: Mary Valdez DO [id number] 09/20/2020 12:00:00 AM EDT - 09/20/2020 02:54:[address] [facility] <td ID="encounterTypeDescriptionID0">Acu te Follow-up Well</td><td>Ochoa Reed NP</td><td>[facility]</td><td>08/22/2020</td><td>9:03AM</td><td>9:42AM</td><td><content ID="encounterDiagnosisID0-0">Dysplastic Nevus</content>, <content ID="encounterDiagnosisID0-1">Assessment of Removal of Sutures</content></td>Outpatient Attender: Ochoa Reed NP [facility] 08/22/2020 09:03:00 AM EDT - 08/22/2020 09:42:03 AM EDT Assessment of Removal of SuturesDysplastic Nevus [facility] ([facility]) Assessment of Removal of Sutures Dysplastic Nevus Outpatient Attender: Mary Valdez DO 08/15/2020 11:00:00 PM EDT Substance Abuse Therapist [facility] Substance Abuse Therapist <td ID="encounterTypeDescriptionID0">Pro cedure</td><td>Mary Valdez </td><td>[facility]</td><td>08/15/2020</td><td>11:38AM</td><td>12:36PM</td><td><content ID="encounterDiagnosisID0-0">Dysplastic Nevus</content></td>Outpatient Attender: Mary Valdez [facility] 08/15/2020 11:38:00 AM EDT - 08/15/2020 12:36:42 PM EDT Dysplastic Nevus [facility] ([facility]) Dysplastic Nevus <td ID="encounterTypeDescriptionID0">AHR </td><td>Mary Valdez DO</td><td>[facility]</td><td>07/11/2020</td><td>5:48PM</td><td>6:49PM</td><td><content ID="encounterDiagnosisID0-0">Visit For: Routine Adult H&p</content>, <content ID="encounterDiagnosisID0-1">Assessment of Visit For: Screening Exam Malignant Neoplasm Breast</content>, <content ID="encounterDiagnosisID0- 2">Acrochordon</content>, <content ID="encounterDiagnosisID0- 3">Hyperlipidemia</content>, <content ID="encounterDiagnosisID0-4">Hemangioma Intra-abdominal Structures</content>, <content ID="encounterDiagnosisID0- 5">Liver Neoplasm, Benign - Hepatic Adenoma</content>, <content ID="encounterDiagnosisID0-6">Hypertrophy of Breast</content></td>Outpatient Attender: Mary Valdez DO [facility] 07/11/2020 05:48:00 PM EDT - 07/11/2020 06:49:06 PM EDT Hypertrophy of BreastHyperlipidemiaVisit For: Routine Adult H&pAcrochordonLiver Neoplasm, Benign - Hepatic AdenomaHemangioma Intra-abdominal StructuresAssessment of Visit For: Screening Exam Malignant Neoplasm Breast [facility] Hypertrophy of Breast Hyperlipidemia Visit For: Routine Adult H&p Acrochordon Liver Neoplasm, Benign - Hepatic Adenoma Hemangioma Intra-abdominal Structures Assessment of Visit For: Screening Exam Malignant Neoplasm Breast Attender: SHERLYN BAL MDReferrer: Mary Mayes 06/24/2020 08:21:05 PM EDT [facility] <td ID="encounterTypeDescriptionID0">H A dult Prophy</td><td>Jennifer Dillard [facility]</td><td>[facility]</td><td>06/12/2020</td><td>3:26PM</td><td>4:01PM</td><td></td>Unknown Attender: eJnnifer Dillard [facility] 06/12/2020 03:26:00 PM EDT - 06/12/2020 04:01:00 PM EDT [facility] Outpatient<td ID="encounterTypeDescripti onID0">Acute Follow-up Well</td><td>Mary Valdez DO</td><td>[facility]</td><td>02/07/2020</td><td><content ID="encounterDiagnosisID0-0"> Dysplastic Nevus</content></td> Attender: Mary Valdez DO [facility] 02/07/2020 10:25:00 AM EST - 02/07/2020 10:59:00 AM EST Dysplastic Nevus [facility] Dysplastic Nevus Outpatient Attender: Mary Valdez DO 02/02/2020 10:41:00 AM EST [facility] Outpatient<td ID="encounterTypeDescripti onID1">Procedure</td><td>Mary Valdez </td><td>[facility]</td><td>02/01/2020</td><td><content ID="encounterDiagnosisID1-0">Dysplastic Nevus</content></td> Attender: Mary Valdez [facility] 02/01/2020 04:04:00 PM EST - 02/01/2020 04:55:33 PM EST Dysplastic NevusDysplastic Nevus [facility] ([facility]) Dysplastic Nevus Dysplastic Nevus <td ID="encounterTypeDescriptionID2">Buster destini</td><td>Mary Valdez </td><td>[facility]</td><td>12/27/2019</td><td><content ID="encounterDiagnosisID2-0">Dysplastic Nevus</content>, <content ID="encounterDiagnosisID2-1">Acrochordon</content></td>Outpatient Attender: Mary Valdez [facility] 12/27/2019 11:28:00 AM EST - 12/27/2019 11:54:58 AM EST AcrochordonAcrochordonAcrochordonDysplas tic NevusDysplastic NevusDysplastic Nevus [facility] ([facility]) Acrochordon Acrochordon Acrochordon Dysplastic Nevus Dysplastic Nevus Dysplastic Nevus Outpatient Attender: Sami ABDUL 12/13/2019 09 :42:00 AM EDT d18.03 heman. liver [facility] d18.03 heman. liver Unknown<td ID="encounterTypeDescriptionI D3">H Adult Prophy</td><td>Jennifer Dillard [facility]</td><td>[facility]</td><td>11/16/2019</td><td></td> Attender: Jennifer Dillard [facility] 11/16/2019 03:54:00 PM EDT - 11/16/2019 04:24:00 PM EDT [facility] ([facility]) Immunizations Vaccine Date Status Description Data Source(s) COVID-19 VACCINE [facility] 12/03/2020 12:00:00 AM EDT completed NYSIIS Vaccine Series Complete: YESThis Data wa s Submitted to [facility] Via [employer] [employer] COVID19 06/01/2020 06:06:00 PM EDT completed <td ID="Scqcxnrbgvxqz-Hghciicwioy-RD1">Pfizer COVID19</td><td ID="ImmunizationDose- 1">2</td><td>06/01/2020</td><td ID="Pnoaipaqubswh-YrnvwYyyo-SH2"></td><td></td> <td ID="Szpgfolkavkwk-Huceju-PB3">Complete (Reported)</td><td>Patient</td><td ID="Torpgauscxqot-Exdhr-Osau-Comment-ID1"></td> [facility] ([facility]) COVID-19 VACCINE [facility] 06/01/2020 12:00:00 AM EDT completed NYSIIS Vaccine Series Complete: YESThis Data wa s Submitted to [facility] [employer]. [employer] [place] [id number] 05/11/2020 06:06:00 PM EDT completed <td ID="Cmzyxwaihilte-Rmxracjhwhq-WU6">Pfizer COVID19</td><td ID="ImmunizationDose- 0">1</td><td>05/11/2020</td><td ID="Xxhyiocxrjvpx-UhymsZhhh-LF7"></td><td></td> <td ID="Rdtlvgowxentg-Lvmuna-QD7">Complete (Reported)</td><td>Patient</td><td ID="Usydbjjdsnppy-Bgxqn-Ozbw-Comment-ID0"></td> [facility] ([facility]) COVID-19 VACCINE [facility] 05/11/2020 12:00:00 AM EDT completed NYSIIS Vaccine Series Complete: NOThis Data was Submitted to [facility] Via [employer]. Medications Medication Brand Name Start Date Product [...] MAXIMUM DAILY DOSE = 4 SOLD: 12/24/2020 [facility] Ondansetron 4 MG Disintegrating Oral Tablet ONDANSETRON 12/24/2020 12:00:00 AM EST tablet,disintegrating 9 DISSOLVE O NE TABLET ON TONGUE EVERY 8 HOURS NEEDED FOR NAUSEA FOR UP TO 3 DAYS DISSOLVE ONE TABLET ON TONGUE EVERY 8 HO URS NEEDED FOR NAUSEA FOR UP TO 3 DAYS SOLD: 12/24/2020 [facility] Clindamycin 0.01 MG/MG Topical Gel Clindamycin Phospha te 1% External Gel Clindamycin Phosphate 1% External Gel 10/30/2020 12:00:00 AM EDT active clindamycin 0.01 MG/MG Topical G el [facility] ([facility]) 1 % 10/30/2020 12:00:00 AM EDT gel 60 APPLY TOPICALLY TO FACE ONCE DAILY APPLY TOPICALLY TO FACE ONCE DAILY SOLD: 11/06/2020 [email or web address] Collagen Hydrolysate (Bovine) Powder Collagen Hydrolysate (B [...] TOPICALLY TO FACE ONCE DAILY SOLD: 04/09/2020 [email or web address] Clindamycin 0.01 MG/MG Topical Gel Clindamycin Phospha [...] clindamycin 0.01 MG/MG Topical G el [facility] ([facility]) Ibuprofen 800 MG Oral Tablet Ibuprofen 800MG Oral Tabl et Ibuprofen 800MG Oral Tablet 09/14/2016 12:00:00 AM EDT aborted ibuprofen 800 MG Oral Tablet [facility] ([facility]) Cyclobenzaprine hydrochloride 10 MG Oral Tablet Cyclobenzaprine HCl 10MG Oral Tablet Cyclobenzaprine HCl 10MG Oral Tablet 09/14/2016 12:00:00 AM EDT aborted cyclobenzaprine hydrochlorid e 10 MG Oral Tablet [facility] ([facility]) Insurance Providers Payer name Policy type / Coverage type Policy ID Covered alliance party ID Covered alliance party's relationship to larsen Policy [place] Plan Information BLUE CROSS [id number] SP [id number] BLUE CROSS [id number] SP [id number] [employer] [place] Other 0 [id number] Family Dep endent Jaime Rarick 0 [facility] [id number] [employer] [place] Other 0 [id number] Family Depend ent Jaime Rarick 0 [employer] [place] Other 0 [id number] Family Depend ent Jaime Rarick 0 [employer] [place] Other 0 [id number] Family Depend ent Jaime Rarick 0 [employer] [place] Other 0 [id number] Family Depend ent Jaime Rarick 0 [employer] [place] Other 0 [id number] Family Dep endent Jaime Rarick 0 [employer] [place] Other 0 [id number] Family Dep endent Jaime Rarick 0 [employer] [place] Other 0 [id number] Family Dep endent Jaime Rarick 0 [employer] [place] Other 0 [id number] Family Dep endent Jaime Rarick 0 [employer] [place] Other 0 [id number] Family Dep endent Jaime Rarick 0 [employer] [place] Other 0 [id number] Family Dep endent Jaime Rarick 0 [employer] [place] Other 0 [id number] Family Dep endent Jaime Rarick 0 [employer] [place] Other 0 [id number] Family Dep endent Jaime Rarick 0 [employer] [place] Other 0 [id number] Family Dep endent Jaime Rarick 0 [employer] [place] Other 0 [id number] Family Dep endent Jaime Rarick 0 [employer] [place] Other 0 [id number] Family Dep endent Jaime Rarick 0 [employer] [place] Other 0 [id number] Family Dep endent Jaime Rarick 0 [employer] [place] Other 0 [id number] Family Dep endent Jaime Rarick 0 [employer] [place] Other 0 [id number] Family Dep endent Jaime Rarick 0 [employer] [place] Other 0 [id number] Family Dep endent Jaime Rarick 0 [employer] [place] Other 0 [id number] Family Dep endent Jaime Rarick 0 [employer] [place] Other 0 [id number] Family Dep endent Jaime Rarick 0 [employer] [place] Other 0 [id number] Family Dep endent Jaime Rarick 0 [employer] [place] Other 0 [id number] Family Dep endent Jaime Rarick 0 [employer] [place] Other 0 [id number] Family Dep endent Jaime Rarick 0 [employer] [place] Other 0 [id number] Family Dep endent Jaime Rarick 0 [employer] [place] Other 0 [id number] Family Dep endent Jaime Rarick 0 [employer] [place] Other 0 [id number] Family Dep endent Jaime Rarick 0 [employer] [place] Other 0 [id number] Family Dep endent Jaime Rarick 0 [employer] [place] Other 0 [id number] Family Dep endent Jamie Rarick 0 [employer] [place] Other 0 [id number] Self 0 [employer] [place] Other 0 [id number] Family Dep endent Jaime Rarick 0 [employer] [place] Other 0 [id number] Family Dep endent Jaime Rarick 0 [employer] [place] Other 0 [id number] Family Dep endent Jaime Rarick 0 [employer] [place] Other 0 [id number] Family Dep endent Jaime Rarick 0 [employer] [place] Other 0 [id number] Family Dep endent Jaime Rarick 0 [employer] [place] Other 0 [id number] Family Dep endent Jaime Rarick 0 [employer] [place] Other 0 [id number] Family Dep endent Jaime Rarick 0 [employer] [place] Other 0 [id number] Family Dep endent Jaime Rarick 0 [employer] [place] Other 0 [id number] Family Dep endent Jaime Rarick 0 [employer] [place] Other 0 [id number] Family Dep endent Jaime Rarick 0 [employer] [place] Other 0 [id number] Family Dep endent Jaime Rarick 0 [employer] [place] Other 0 [id number] Family Dep endent Jaime Rarick 0 [employer] [place] Other 0 [id number] Family Dep endent Jaime Rarick 0 [employer] [place] Other 0 [id number] Family Dep endent Jaime Rarick 0 [employer] [place] Other 0 [id number] Family Dep endent Jaime Rarick 0 [employer] [place] Other 0 [id number] Family Dep endent Jaime Rarick 0 BLUE CROSS [id number] SPO [id number] EXCELLUS H [id number] Unkn [id number] [employer] [place] Other 0 [id number] Family Dep endent Jaime Rarick 0 [employer] [place] Other 0 [id number] Family Dep endent Jaime Rarick 0 EXCELLUS BCBS [id number] Spo [id number] [employer] [place] Other 0 [id number] Family Dep endent Jaime Rarick 0 [employer] [place] Other 0 [id number] Family Dep endent Jaime Rarick 0 [employer] [place] Other 0 [id number] Family Dep endent Jaime Rarick 0 [employer] [place] Other 0 [id number] Family Dep endent Jaime Rarick 0 [employer] [place] Other 0 [id number] Family Dep endent Jaime Rarick 0 EXCELLUS H [id number] Unkn [id number] [employer] [place] Other 0 [id number] Family Dep endent Jaime Rarick 0 [employer] [place] Other 0 [id number] Family Dep endent Jaime Rarick 0 [employer] [place] Other 0 [id number] Family Dep endent Jaime Rarick 0 [employer] [place] Other 0 [id number] Family Dep endent Jaime Rarick 0 [employer] [place] Other 0 [id number] Family Dep endent Jaime Rarick 0 [employer] [place] Other 0 [id number] Family Dep endent Jaime Rarick 0 [employer] [place] Other 0 [id number] Family Dep endent Jaime Rarick 0 [employer] [place] Other 0 [id number] Family Dep endent Jaime Rarick 0 [employer] [place] Other 0 [id number] Family Dep endent Jaime Rarick 0 [employer] [place] Other 0 [id number] Family Dep endent Jaime Rarick 0 BLUE CROSS [id number] SPO [id number] [employer] [place] Other 0 [id number] Family Dep endent Jaime Rarick 0 [employer] [place] Other 0 [id number] Family Dep endent Jiame Rarick 0 [employer] [place] Other 0 [id number] Family Dep endent Jaime Rarick 0 BLUE CROSS [id number] SPO [id number] SELF PAY SELF PAY BLUE CROSS [id number] SPO [id number] SELF PAY BLUE CROSS [id number] SPO [id number] BLUE CROSS [id number] SPO [id number] SELF PAY SELF PAY BLUE CROSS [id number] SPO [id number] SELF PAY BLUE CROSS [id number] SPO [id number] SELF PAY BLUE CROSS [id number] SPO [id number] BCBS [place] PPO 302/307 [id number] [id number] ID IDENTIFICATION ID IDENTIFICATION [id number] Other Insurance ID IDENTIFICATION [employer] [id number] Blue Cross/Donna eld [id number] [employer] [id number] Blue Cr oss/Shield [employer] BC-BS PPO 306 [id number] HU2 [id number] BLUE CROSS [id number] SPO [id number] [facility] BS Health Maintenance Organization (O) [id number] Family Dependent [id number] BLUE CROSS [id number] SPO [id number] [employer] BC-BS PPO 306 [id number] HU2 [id number] [employer] BCBS B [id number] P [id number] [facility] (O) [id number] Family Dependent [id number] ID IDENTIFICATION [id number] Other Insurance [id number] [facility] (O) [id number] Family Dependent [id number] BCBS [place] PPO 302/307 [id number] HU2 [id number] Problems, Conditions, and Diagnoses Code Display Name Description Problem Type Effective Dates Data Source(s) macromastia macromastia Diagnosis 12/24/2020 05:57:00 AM [facility] D13.4 Benign neoplasm of liver D13.4 - Benign neoplasm of li vahid Diagnosis 11/18/2020 07:45:00 AM EDT [facility] Z12.31 Encounter for screening mammogram for ma lignant neoplasm of breast Z12.31 - Encounter for screening mammogram for malignant neoplasm of breast Diagnosis 11/08/2020 11:20:00 AM [facility] D48.5 Neoplasm of uncertain behavior of skin D 48.5 - Neoplasm of uncertain behavior of skin Diagnosis 08/15/2020 11:00:00 PM EDT [facility] D18.03 Hemangioma of intra-abdominal structures D18.03 - Hemangioma of intra- abdominal structures Diagnosis 12/13/2019 09:42:00 [facility]: Obstructive Sleep Apnea Syndrome R isk: Obstructive Sleep Apnea Syndrome Problem 08/13/2020 09:29:00 AM EDT [facility] ([facility]) 799.9 Risk: Obstructive Sleep Apnea Syndrome R isk: Obstructive Sleep Apnea Syndrome Problem 08/13/2020 09:29:00 AM EDT [facility] ([facility]) 799.9 Risk: Obstructive Sleep Apnea Syndrome [...] Problem 07/11/2020 06:13: 00 PM EDT [facility] ([facility] 272.4 Hyperlipidemia Hyperlipidemia Problem 07/11/2020 06:13: 00 PM EDT [facility] ([facility] [place] 272.4 Hyperlipidemia Hyperlipidemia Problem 07/11/2020 06:13: 00 [...] MINUTES 11/26/2020 12:00:00 A M EDT MEDBLAY[facility] ([facility], ) Summary provided electronically in CCDA format [...] Ft genitalia 08/15/2020 12:00:00 AM EDT [facility] Exc Malignant Lesion .6 to 1 cm Scalp Neck Hand Ft gen indu Exc Malignant Lesion .6 to 1 cm Scalp Neck Hand Ft genitalia 08/15/2020 12:00:00 AM EDT CHANELL ([facility]) Alcohol consumption screening (procedure) 07/11/2020 12:00:00 AM EDT - 07/11/2020 12:00:00 AM EDT [facility]ANE[facility] ([facility]) Drug of abuse screen (procedure) 021 12:00:00 AM EDT - 07/11/2020 12:00:00 AM EDT [facility]ANELL ([facility]) Summary provided electronically in CCDA format & reasonable certainty of receipt 07/11/2020 12:00:00 AM EDT - 07/11/2020 12:00:00 AM EDT CHANELL ([facility]) drug and/or alcohol abuse structured scr eening and brief intervention 07/11/2020 : Prescreening Completed - No Further Screening Indicated 07/11/2020 12:00:00 AM EDT - 07/11/2020 12:00:00 AM EDT CHANELL ([facility]) Destruction 2nd through 14 lesions Destruction 2nd through 1 4 lesions 07/11/2020 12:00:00 AM EDT CHANELL ([facility]) Destruction 1st lesion Destruction 1st lesion 07/11/2020 12:00:00 A M EDT CHANELL ([facility]) records management 07/10/2020 - Chart Prep Performed 07/10/2020 12:00:00 AM EDT - 07/10/2020 12:00:00 AM EDT CHANELL ([facility] ) Clinical [facility] electronically with reasonable certainty of receipt or receiving provider electronically through [facility] 06/12/2020 12:00:00 AM EDT - 06/12/2020 12:00:00 AM EDT CHANELL ([facility]) Transition in care medication list update 06/12/2020 12:00:00 AM EDT - 06/12/2020 12:00:00 AM EDT [employer] ([facility]) Bitewing - 4 radiographic images [employer] - 4 radiographic i mages 06/12/2020 12:00:00 AM EDT [employer] ([facility]) Oral Hygiene/[facility] Oral Hygiene/[facility] 06/12/2020 12:00:00 AM EDT CHANELL ([facility]) Periodic Oral Evaluation Periodic Oral Evaluation 06/12/2020 12:00: 00 AM EDT [employer] ([facility]) Oral Cancer Screening Oral Cancer Screening 06/12/2020 12:00:00 AM EDT [employer] ([facility]) Nutritional Counseling Nutritional Counseling 06/12/2020 12:00:00 A M [email or web address] ([facility]) Prophylaxis Adult Prophylaxis Adult 06/12/2020 12:00:00 AM EDT [employer] ([facility]) Excision Benign Lesion .5cm or less scalp nck hnd ft g eitali Excision Benign Lesion .5cm or less scalp nck hnd ft geitali 02/01/2020 12:00:00 AM EST CHANELL ([facility]) Destruction (eg, Laser Surgery, Electrosurgery, Cryosu rgery, Destruction (eg, Laser Surgery, Electrosurgery, Cryosurgery, 12/27/2019 12:00:00 AM EST CHANELL ([facility]) Destruction 2nd through 14 lesions Destruction 2nd through 1 4 lesions 12/27/2019 12:00:00 AM EST [employer] ([facility]) Destruction 1st lesion Destruction 1st lesion 12/27/2019 12:00:00 A M [employer] ([facility]) Oral Hygiene/[facility] Oral Hygiene/[facility] 11/16/2019 12:00:00 AM EDT [employer] ([facility]) Oral Cancer Screening Oral Cancer Screening 11/16/2019 12:00:00 AM EDT [employer] ([facility]) Nutritional Counseling Nutritional Counseling 11/16/2019 12:00:00 A M EDT CHANELL ([facility]) Periodic Oral Evaluation Periodic Oral Evaluation 11/16/2019 12:00: 00 AM EDT [employer] ([facility]) Prophylaxis Adult Prophylaxis Adult 11/16/2019 12:00:00 AM EDT [employer] ([facility]) Prophylaxis Adult Prophylaxis Adult 11/16/2019 12:00:00 AM EDT [employer] ([facility]) Nutritional Counseling Nutritional Counseling 11/16/2019 12:00:00 A M EDT CHANELL ([facility]) Periodic Oral Evaluation Periodic Oral Evaluation 11/16/2019 12:00: 00 AM EDT CHANELL ([facility]) Oral Cancer Screening Oral Cancer Screening 11/16/2019 12:00:00 AM EDT CHANELL ([facility]) Oral Hygiene[facility] Oral Hygiene/[facility] 11/16/2019 12:00:00 AM EDT CHANELL ([facility]) Results ID Date Data Source [id number] 12/31/2020 11:55:02 AM [facility] Name Value Range Interpretation Code Description Data Joselin rce(s) Supporting Document(s) Progress Note [facility] WDPHCu8dQoZKKqYq68/JUHavWGTjx0PsUNhhGWz4WFouMYDzS6DkRBE4cD9bXUO1NQcKErRuCxAnZPK1 lbm [file] AgICAgICAgICAgICAgICAgICAgICAgICAgICAgICAgICAgICAgICAgICAgICAgICAgICAgICAgICAgIC AgICAgICAgICAgICAgICAgICAgICAgICAgICAgICAg ICAgICANCiAgICAgICAgICAgICAgICAgICAgICAgICAgICAgICAgICAgICAgICAgICAgICAgICAgICAg ICAgICAgICAgICAgICAgICAgICAgICAgICAgICAgICAgICAgICAgICAgICAgICANCiAgICAgICAgICAg ICAgICAgICAgICAgICAgICAgICAgICAgICAgICAgIC AgICAgICAgICAgICAgICAgICAgICAgICAgICAgICAgICAgICAgICAgICAgICAgICAgICAgICAgICANCi AgICAgICAgICAgICAgICAgICAgICAgICAgICAgICAgICAgICAgICAgICAgICAgICAgICAgICAgICAgIC AgICAgICAgICAgICAgICAgICAgICAgICAgICAgICAg ICAgICAgICANCiAgICAgICAgICAgICAgICAgICAgICAgICAgICAgICAgICAgICAgICAgICAgICAgICAg ICAgICAgICAgICAgICAgICAgICAgICAgICAgICAgICAgICAgICAgICAgICAgICAgICANCiAgICAgICAg ICAgICAgICAgICAgICAgICAgICAgICAgICAgICAgIC AgICAgICAgICAgICAgICAgICAgICAgICAgICAgICAgICAgICAgICAgICAgICAgICAgICAgICAgICAgIC ANCiAgICAgICAgICAgICAgICAgICAgICAgICAgICAgICAgICAgICAgICAgICAgICAgICAgICAgICAgIC AgICAgICAgICAgICAgICAgICAgICAgICAgICAgICAg ICAgICAgICAgICANCiAgICAgICAgICAgICAgICAgICAgICAgICAgICAgICAgICAgICAgICAgICAgICAg ICAgICAgICAgICAgICAgICAgICAgICAgICAgICAgICAgICAgICAgICAgICAgICAgICAgICANCiAgICAg ICAgICAgICAgICAgICAgICAgICAgICAgICAgICAgIC AgICAgICAgICAgICAgICAgICAgICAgICAgICAgICAgICAgICAgICAgICAgICAgICAgICAgICAgICAgIC AgICANCiAgICAgICAgICAgICAgICAgICAgICAgICAgICAgICAgICAgICAgICAgICAgICAgICAgICAgIC AgICAgICAgICAgICAgICAgICAgICAgICAgICAgICAg ICAgICAgICAgICAgICANCjw/rPVqA3oosORwbdU6H2nfEi2BNj2KXD9hc3YkYYFoKNcnuqJjCphWUtAe OTFaTeqUGvr9VPvwJR3OxENoE0CeP6NcNTpoDW3DWCEuDSLpaPQhNDLdPSWhQmO6DPOkFQqsJT1DoYLg FXavXFDhPSRkLlPmHIWlTM8PEYIgV135ooEwHk2SGl 3TRbKdIO5ees2EKxPuBKAaIdkPUrq5YKlzST0YgGDdmLGzHcZvAOPRFvQcT0jns5HuNkOmRVAKPYyoBJ 0Aq1CoqMUjBWn+Cx5ZPD4cw3TkIJauKyTfTH7cmr1MKIcICuQxB9ShsKqjBXVsl4pzHFUzWK3atSHnLV B9ORIndo2ciK5eXLBBnQCbYICFTXIuoIJlGZ8pOf5v NEWwFFGfPgTkCDBDDZ7LHLUeOPCtlTEtBSGnFKBNYP9FBLnvRGJ5RSTqgaNygXFdDLwbRZ1XKHHubsRt MjEgMCBSDQo+Nk2SEI5eb5OnDTfuKyCsMF2jqj4WJLyQPuAxJ0W0xOCjC9X9ENtyWq8ROMYfGYTzJSic NWZOFKafQW5LDF3gzqW6MR2DsTHnMANrUDZuiNIaLK q9H29hvZJzRMesPF8AVKW+Tiana+Qo6KIWXrUNFzEHBfLaBbETJASlUyP4HwF4OKl0SsT9SxEU13cPoetf ScFWkfKK3VWY1wMMPcIJHOXC8XbTXlxL1vheWmQTLbSTSXNwZdU80sfREvDGBuVNBzXILwAc3LEPGbM5 UlfhFcnItxyeWkVLXqDAJQXL8OGVxnbiZdjFDrtRlc CQ77eWynYX5QDa8IZeIuFC8mkb6MaTViZr4BNWVtLT2TLKVtUHIuMBZiRUZ0LNTyFuDdAFuvZQNkHAZb WHO6FIGyJAXpFO8LMhLeWQWkQAj7DWsrNDNvXNUntb5GYKXcNKAcAEI0MHZhVIPqQTXhAFhpWDSrQLIk KHH9JPXhWLRfFS6FCrDaLQVmVEZqMzBgMTLbQULlcc 4BSRCkEVCzAqPtKWDuRSSqFIMrQLuuWLKqIIM7JsnyBTCaSNZpFY5EGkVxGROzQWR6NuAiKDQqEOIqiq 0MKIPnHFBkYOMtLRCoBYOzBTRoCIgnTTOaOYQ7KcDpLJQqTSPwEF2XFdGmQYCoUES1JWJvRSMaIQAtxz 2MRMGqUXLiMvq2VHKbGGLhVEXfXTbwZMDyHLT0QQod FWGzNSVaUF2DNcRvLDNgDBjzTrVoOOWaUHIrtw5WMPEnTRTcIDPvIyXiEUBySIXcXApyBPUlPSB2OOTr PHDlEMIbWH0PUfLvOFEjVKxeTECyOKTdLAUhmh1KBSJxXPNaJKD1KDNxMYOuFCLiPHeyHPIsNJM1MRJ4 OBOhWYVvLK1RBqBjRGYvWZk5IeunXIZwVKLzwg1RXW UkNJRbZIC0VfWcOIWjKWCgNXctQJSmWUGaSWWgEHLkKLVjYP2FMeEmDTZnRxD9QFCsGKIqCCBept9ZyX CdlCjtue4DSIcYAk8GgVqeYQP5ZSikHh2juKGzJyLtGDJNNr4CeeRhMMUpEGSDRKkaZOQbWBKgBdmeH0 BmOYLrDRIvItG5HFEnJTNwIOC3UkdqWhRlXzN9T9Vo W8T4NIO8JjTbQYRcLDOuZ3A8BiFoQHN8A8YoOsQ+LC1pUBm+Bf2Jw8VxlsN9rjNyPGkuMTyqIc0ZUXSP T0YNCg== ID Date Data Source [id number] 12/24/2020 09:48:55 AM EST [facility] Name Value Range Interpretation Code Description Data Joselin rce(s) Supporting Document(s) Operative Note [facility] GLVXNi4yUlHFHnYv38/FTJboACKjr5QgHMkbVIs4QKthPJQmO9OpRWE2jI8iFCO8JGqNSrJiMaOwOJX2 lbm [file] ICAgICAgICAgICAgICAgICAgICAgICAgICAgICAgIC AgICAgICAgICAgICAgICAgICAgICAgDQogICAgICAgICAgICAgICAgICAgICAgICAgICAgICAgICAgIC AgICAgICAgICAgICAgICAgICAgICAgICAgICAgICAgICAgICAgICAgICAgICAgICAgICAgICAgICAgIC AgICAgDQogICAgICAgICAgICAgICAgICAgICAgICAg ICAgICAgICAgICAgICAgICAgICAgICAgICAgICAgICAgICAgICAgICAgICAgICAgICAgICAgICAgICAg ICAgICAgICAgICAgICAgDQogICAgICAgICAgICAgICAgICAgICAgICAgICAgICAgICAgICAgICAgICAg ICAgICAgICAgICAgICAgICAgICAgICAgICAgICAgIC AgICAgICAgICAgICAgICAgICAgICAgICAgDQogICAgICAgICAgICAgICAgICAgICAgICAgICAgICAgIC AgICAgICAgICAgICAgICAgICAgICAgICAgICAgICAgICAgICAgICAgICAgICAgICAgICAgICAgICAgIC AgICAgICAgDQogICAgICAgICAgICAgICAgICAgICAg ICAgICAgICAgICAgICAgICAgICAgICAgICAgICAgICAgICAgICAgICAgICAgICAgICAgICAgICAgICAg ICAgICAgICAgICAgICAgICAgDQogICAgICAgICAgICAgICAgICAgICAgICAgICAgICAgICAgICAgICAg ICAgICAgICAgICAgICAgICAgICAgICAgICAgICAgIC AgICAgICAgICAgICAgICAgICAgICAgICAgICAgDQogICAgICAgICAgICAgICAgICAgICAgICAgICAgIC AgICAgICAgICAgICAgICAgICAgICAgICAgICAgICAgICAgICAgICAgICAgICAgICAgICAgICAgICAgIC AgICAgICAgICAgDQogICAgICAgICAgICAgICAgICAg ICAgICAgICAgICAgICAgICAgICAgICAgICAgICAgICAgICAgICAgICAgICAgICAgICAgICAgICAgICAg ICAgICAgICAgICAgICAgICAgICAgDQogICAgICAgICAgICAgICAgICAgICAgICAgICAgICAgICAgICAg ICAgICAgICAgICAgICAgICAgICAgICAgICAgICAgIC OhNAGoHWAxLIIbQUQzXVXvTCDzZRRzYLBgTUIcMZYkLSr7T9wzUWJmNHGzAI9rDRx5Zw0+DQoNCmVuZH R2aeRxxC5MRJ9jz7ZwAAotAWIeg5McKXn8EW2SFAToEYnxVF9ODNbpsv6DYBWrYSUgzHMHk1npLiYzDS Y7BMMnPiqiBU7KINKpG8plpcHdERYaDETMLIgfTYUI SZskCJZAAM4KPjVjR7ScrP18FOJWHm7+ZCuarrViCelDZhFxAJTgd3VfZMk0CF7GYQEtCwhjo6QvOaKa EYXUHDsaWL4HLOX9OCDcFEWjTi2YOJPiX596rsCqYF2KFo7ZUlDwIV3dgj9NWoHxMEGoLqsUFwn0VIfn GS9XrXKkFPpBkDVuKIQvoyJqGw47ZBZfjXMHkoUcfF NmhINEUIPlKOVepTO0BVhkVSNnMIGeTQGtVB1bNQHzZWI6RtV3QLLBRS8RPAKhFTOajDRoRHBpWPXYZJ 8PGRaxCTR5HORiajYymLIjNVphYI9IXAEkexGhRwIcDQTYIUy+Tn1AVF9ex5FpFFoaHyOjMY0ntl9EMD wYGoQjX9T2tJTxL9S5TOjnMy3ILKEhJFHbTHfzECGC MMlxAK4NKU5wiyL0NT2TtTJgHVRyBNYjwGZqFBu5X28dcVFwHUrrZL2TZXB+Tiana+Lm0HWOPtOUSxORMo BaPiHZBRAwNuI0BdP8MGr1SuX9FtUQ82eOohohGmYCzeRN6BBZ1oOTBvQHBCBV4DkUZglL5jbeHdVYUy YSSTMyIuB84tdWOmYMLvDJOgVLSwBn3MFPCfP7Pgnl OftTspmkDoOEUpUUMREY2QZXpoxxComSXbqHdcZZ66kEgbEX6WBc4FPsFjAX7ped6UrHBzCz1NEMGoMU 0DIDDoGIKeFCTrXHH8SLEeMzXfMWhhLVOhPHHpUEA9DUQvDEOlZF8XHlXrHAPwGJJnTKLpKAXpSLXbgq 3DMNGpRTJeOWd0CbOuHNEpZKIcYUfcJUQaXSZsKUT5 OUGwYDYfDC5IAmWmFDVeZUA5QADzWOBwFAMegi4TTIZrOGRgLkW3VGUmORTrOIGpHJiiWPIyURQ3CQqh ZUChPJCfVI7WQfNjKSCpNIxsWMDkMBPbVTWfaj2WAXPlNQQoGLg5GmWePNWjRKGsTHzwRRRnIHFwLVzf OYKmFOTxVN7VYpYoETTcPJJxSKPaTEAgDTMbui8VMK KkIBTnPME2OSUsEOObCDRnHPxqPHNkLILiKFLsWXPoWVZiPV3CWsLhCHCsMSO5JPErMHJdBYDfvc5EJP QkRSWwLuA1WmXxOOMpIOLtDIedRSMkMKVuVTupUPMhFOJbCD0LJvCzWKIrKTF7POXiDPEoATNdlz4QLO WkHLPaYKBkHlUcZCQrEJMuHTtgBNReMUL7RfXpTGPw QVKuWG2ELiDxQFLdUVA2WFGjFWXqTMClyy2QVAKiFRRmNqI4CjKaRSVqLXDiMJvnQIFrLUA6KVV7XZRx VDTyQM2HVwXdZNOyFHJnWIewMQEwPOOcyq7CuRApnXsbcv2KWTqYGf5OvMgyIZA6UPzqFr2dnLSrQsVg TICUTq0KcjRfWOBiMQOYTZcvLFIiWTrgQSY4YyI8Kp ElZNE8PJDqQPGsLEP1WTUjVZE5VSIjIoF3LQP3UZkvESxvXNSwDbwcUpX7DYBgXXOfTHMlQDw9QJK+IF 0gDQo+Xl0Rn6YfoqH2ntOvZJwhHeN9Cx1IZWOTJ9OQUs== ID Date Data Source [id number] 12/24/2020 07:44:40 AM EST [facility] Name Value Range Interpretation Code Description Data Joselin rce(s) Supporting Document(s) History and Physical [facility] CIDEUd3vVmIWJqMa19/MFXrlLPBac8HcZAdsTHz5BOlxZIYuQ4XwVPR6rG3oOLF3VQeNXsFjTvStXIN7 lbm GnJqqRNnUnENOgSpaGUtDyUMwaTbiguITsMQ3NgDB2NDHgJ04jMLZcJEZnJ1QxMOXqPNS+Lk0YXWEqfU XyLQ5BThrR1Z3mgvi7Hn7+hS2JWnXOOFAsGDn3MehMZRZyNjv5sy6LMD01NU3cTF8pmgzXgzPfzk/1Vr lYt3e3V5Isvgp3cc1VJNTIFC79IyeuH7BS/47Dg5Xe eZ6Y/H29bVSj+nhr499Bi5t+TyHoshKZJMvmpR1KbPm++kK6x4ed3BgbzGXy5Q5QwXiyKdB2zVrl6P0e nKXjUf/Gtwbii5ZKySgIN10KLbJfPEDL0Gz614MbQ+IJM2vucRH3dNAOlqrmPRAwXasc3BiZiPuPYtwG S+HHLefjJAvB54sJyaU/XdV2W78sdeCMak8Yor4PxC tn4tIt/HR7avELqevWNyeqMQcDzt9gjtq+DOrLfxp7UgUKzlzuDUsZe5lg7EQWf3x0CefOsiJdO3k+Ox DxmZ4UZ4dUozYhsO1gloiNauX7ENFVy/PikS8c4nlsZyXK2F7cA+p4kgK3JW1zj5Bx8wrYuYDmUuruty HyI7ekv71Pv5C8ZB/nz1ufVeLKBut7k9Whr2ax8tYE MQZ265kVXRZwJOOLXEOK3h1jocEmAAO2QQ8O+bk1VEr8N6GxekqqzmL+43i627+Ik5+B9YXHaJ/7mgiT WfyZzEuS9lsDWFX0zybeNH4ku38j+VWXcUOrBC2rMtMMQPMwG20wReky0K8avQPohioVmio6Yp9RWCRF FoOwKlVaWkQwdZWTshRGVUmQunekdFuRUaoqXpKOOa [file] TlP5e/BpXIv2VZYlc0A++belarusian+z8/X5mrKde9r/CXhaRmtVjh3tkWMOayFkAbnVk7O/0HIG/M8pCmZUcZq YZpgAAnEG4I4wmNwFcPvKJdm5kyF8p9uXn2hU5c+NZ aLMPXUoDyvgfv/DfShX6DUors4bHhAPf1o7NjpOT1Vzt3OINXi9j0bO4Pb3U7+yLap79Pxn8a25/9tP/ 5v++X/6r1/rO6p0M/qEJAm1YQKYU/sH45/a+XweUdYD6kZ5esPAvypDX3/JCRrgqwUUfwvIA1r9/OKXc 12Dn8vtVplow3At5/NIkg2DfHuL+wswjLfIHM0WDJ8 +GQJdDbp92T53+sDfA+2wgo1Mm787YwHya78ZeyL7t3ks3x78g7+Lf7o5dZqw6E6uAat4mkM57lz7XYR S7Uuy92KmFWv/pK5OkmWFXurCc0M12br+H3yXb8hfYzHX++Ps3IHz9vjEoMPb6PgG2b/wwcNpEl4U2Wj K0oF9S0B8/lutvPDy1by+Iu0bHxY4/GsZTP0ydoPF9 W4RsPUTETgexXXaXv34ahKed1LgZ68e0ELIuxrrIV1XXxv4ySoLJ6Cg4qv/qMs0iXG/ln+vDG/L+LrS/ NRj/2rHafcC60xV5rbQ7xRdykCMp6plHSzEdUl3IX8a0MKiFT0cG38XGsuH1PjvtADqPpbz6uP72qI+C WZPvzWlPjDQQg6RCeCSx0/ScDnZ9zXIPBD/wmphHN7 [employer]+0LDIZhayg5m4jEi4qJshkbi66/hjIoWSMz8Sp0wlIYW6EZ7ZxGKOAnEQrwMk5y+Sxy2R2i5fUMGm [file] ICAgICAgICAgICAgICAgICAgICAgICAgICAgICAgIC TxXORnUYUnPDXfAYYsTBZxVJVaXRAbLBSqBWMhOHFkPEXrRW6TQOYaYAPgBNOaVFJiEPEkYYAqBIKjEM AgICAgICAgICAgICAgICAgICAgICAgICAgICAgICAgICAgICAgICAgICAgICAgICAgICAgICAgICAgIC CmLRMeJCYcJDPjCUCmCDNjQN1OJLHuLWJtKIQyRRLx ICAgICAgICAgICAgICAgICAgICAgICAgICAgICAgICAgICAgICAgICAgICAgICAgICAgICAgICAgICAg OMGtXBViMAEmVIOwGVOrCOIqFTWyRZWcCGDfQF9XRNSgXROpLBNiLVUwUUBfYXDsHJQkXAXbJTZxEBAb ICAgICAgICAgICAgICAgICAgICAgICAgICAgICAgIC NvPPZjMFHoWWVzYXYgLLKgLMLdKIOxYYQqJBPrDGObEZYaGCDvNB9PJVVzODBbCSGgFBGeBZOqEYBpYR AgICAgICAgICAgICAgICAgICAgICAgICAgICAgICAgICAgICAgICAgICAgICAgICAgICAgICAgICAgIC GgXCJtUDQtLWBkDDCxWMZxOEIgFB2JTUCpEEDfFARq ICAgICAgICAgICAgICAgICAgICAgICAgICAgICAgICAgICAgICAgICAgICAgICAgICAgICAgICAgICAg UVFyAQHpABPsZQPkCWOwPIUmAUAeICWgWOMkLFOfCB0QTIKpYPXyGXBtUIDlCQItIVNoOZWmDDCkIVXi ICAgICAgICAgICAgICAgICAgICAgICAgICAgICAgIC XgZBKyNHLxIMImBOXjIBStMBNhERTqGSMuDSUkGOJtTTLwTNNsAYFhJB1XUPBpULImVPGtRVWuMKOcIR AgICAgICAgICAgICAgICAgICAgICAgICAgICAgICAgICAgICAgICAgICAgICAgICAgICAgICAgICAgIC VfBJDtOWNkUKYxGIJbKCPlEPUrORMgVB6HZJRoNKOc ICAgICAgICAgICAgICAgICAgICAgICAgICAgICAgICAgICAgICAgICAgICAgICAgICAgICAgICAgICAg UAHhGHLbQNJnTEIcEQIaZAGlEJSbFQMrPAJjYIUxEZBbYX9EIJOvOYXwHHWpDILfEQYtWBAtMCEsSICs ICAgICAgICAgICAgICAgICAgICAgICAgICAgICAgIC KoNSFsZEPnDNXkTTVgNRDyUJJdZVQmHHJwLDVdLPHxAABdLSEsZYWkMPUzVP9SES68eMXvv5N7HXXnRC 0ndyc/Vh0UKGrypmEbsNAxOC2BIqGrTG6psg1AWrJcIX7pwh9RIVnKBlZyJ0Y0nJNiQUMhPLNSKjLkX5 0iZIxoMn41UZpnVIZoTfUvTHw5Nu0GVcTwB8niMFDs CcG1UNJhNlX7SPWqJnU1XPWvHiPvQKUsWDGeSA5ZFGTfM011qhGnCQ9ZGo4VPzJmFM7cem4WHxEgSEKv BqsIPyg6VKlfEM5XxHJxxYXiNuKrAOSEJrZvM1etl6DeXzOaRADKAMquLU6Ay6KkcCMwNWj+Kv7HOZ8h r5UxVViyTwOfXX1ike9KTMxASvTaM5UjjPmtVCfuNS MxsXHNvxKhmQCruIQRPRLqCPYwwTR3OGyaSBKdBKLrCZGrUA6pBOZjTDN6OzN2KJBEFM0BDVWsRVAdfC GjLCBhRMBHNW2YQErnVCZ0OHCtxuXxaNBoZIlpFX5PRZCbevExEwKaTQJOMXp+Ap9RPP9zi1GfMTdhIu OzCQ9ybr6IXIlTXnZyQ1X1bVIwN1G0SNixWx4LSQZz ZAAlGyBwFWCYALoqZY4ZSL1ssgL2LJ5UuWGhOGQgEETviTQuFWp7R00bxMSqBIlpAH8SWJL+Tiana+Pg0K COKkGEMrQOLiDkVwLFOMHrIeQ0RrG6SMe8VaO4HwYV25zWrbsjCoOIzyAV3NMI5nXFVaDHKJIL6KfVWo pO7fnzLoVTHnOKQIIsEoT34hsYPjORUsYCV8VOZdCk 9HWEZyU5NxeiSeeRwzzeDjARRiLSMQCV5EBOpsjbOncDXfmHkyPN86bJfnWL0AWo8RJxHbHC8uof2XaW MiWb7HMURkLP1SUHJjPBKrDUZjUYL0YKXcLmSmLHmfRAIyXJFxZPG2AJAnHPKsQL5KAdYpJNIyAgpyWZ OcFYIyWEVmac7FDHIvQZQhLJbnXrQvXYHqRABuLNqx NHEeKHIdLMO3YYVoVFCeIA8QUnBwBXMyINBjOhvdPTDyTAWnzl2MIUMrQFZfOnUiZyHuUNOaCGQnHFar RVEnMBQ1UKC9MGPzRAPcOE8YAnSkKACxBEIvJFAgLOHxNUNpcw0KFRHbEUQjZJB8PhPjVDIfUZCaALnh LSMqBKTbDbY4JAOkURJbYJ4HNqOcSGStMEP0IeKdZC WiMLDoxr6MHMXaQGOiHjr8RJEgQVRfCHWiSTwoNFYlYGO4YNLoNPExZWIuOY8RIzEfBOLhTQIkImhqGT ZmKWHywo1NNHQsHDNiKFEcSRAsNRImYBXeXRpkVNVlEOF6TZv1SZWiIEWwZP1QYqTqQXImPZQyVSLyLW XzXLCdzh9LFCErHILeTqM7NTOuZEOsAAUoRHvoFTMx VLZ1WUG8ZTLmNHMjTT4VZeLpQVKkCienJxAsBOHxYFHily8OZCJpUOQvPxN6NuCpSKEzNGPzGEojXIVi JUB5PNK9KBNpKWTwDC2UKoZwXVVzPvfkANSkURRkNYQpse8QEAFrEDErKYS6UcDxFPQiWFGzQWpmCCMn ISJtTRYjBPKqGYEpJN0XWfGhVTGoXQTzQaHqTAVxRR Hiof0KQOYuCLS3KTC6JJZzZENxRMVsNMk9ihCdpXXtAMm3IU7UP3TebwJwJmgXDy6Cj668STW3IAWlRm 2OZ7vmVn6kIUEtOMZHMn8XXDv1YOImDZI4NcR5WQBzChX6KMUcMYF2VTDbUmTyGcEeITn+ENs9OTM3Me D7MdM8B6DwHQMcKnLmTxmhECJ4GkU0O9CnMI7nXI ANCj4+SBqygETjlDreEXJRAdZaBNY0JYynYQGKIa9F ID Date Data Source [id number] 12/24/2020 06:49:29 AM [facility] Name Value Range Interpretation Code Description Data Joselin rce(s) Supporting Document(s) Choriogonadotropin.beta subunit free [Units/volume] in Serum or Plasm a <5 [facility] (NOTE)Levels between 5 and 25 [IU]/L may indicate earlypregnancy and should be repeated after 48 hours. 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 MICROCALCIFICATIONS PRESENT.B) BREAST LEFT, REDUCTIONS MAMMOPLASTY: BENIGN BREAST PARENCHYMA WITHFIBROADENOMATOID CHANGE. Sony Stephenson M.D.;Resident PathologistElectronically Signed By Lindsay Auguste M.D., Attending Buzpuvlkcfb81/14/2021 12:34:54Processed at [facility] at [facility], [address], [place] [address]. The attending pathologist named aboveattests that he/she has personally reviewed the relevant preparation(s)for the specimen, performed microscopic examination when indicated, andrendered the final diagnosis. Unless 'gross-only' is specified, the finaldiagnosis is based on a microscopic examination of pharmaceutical sales representative sectionsof tissue.Gross DescriptionThe specimen is received [...] dense fibroustissue. No discrete lesions are appreciated. Applications Specialist sections aresubmitted in two cassettes. Part B [...] dense fibrous tissue. No discrete lesionsare appreciated. Applications Specialist sections are submitted in two cassettes,to include skin in B1. CTC\\This report may include one or more immunohistochemical stain results thatuse analyte specific reagents. All positive and negative controls havebeen reviewed by the attending pathologist and are satisfactory. The testswere developed and their performance characteristics determined by [facility] Pathology department. They have not been cleared or approved by the USFood and Drug Administration. The FDA has determined that such clearanceor approval is not necessary. Name Value Range Interpretation Code Description Data Joselin rce(s) Supporting Document(s) ID Date Data Source [id number] 12/19/2020 02:45:00 PM EDT [facility] Name Value Range Interpretation Code Description Data Joselin rce(s) Supporting Document(s) SARS coronavirus 2 RNA [Presence] in Res piratory specimen by MIC with probe detection Not Detected [facility] This lab was ordered by [facility] and re ported by [facility]. ID Date Data Source [id number] 12/19/2020 10:45:00 AM EDT [facility] Name Value Range Interpretation Code Description Data Joselin rce(s) Supporting Document(s) SARS-CoV-2 NEGATIVE [facility] This lab was ordered by [facility] and reported by [facility] ID Date Data Source [id number] 11/18/2020 08:35:00 [place] [address] Patient Name: Sammy Cruz Exam Date: 11/18/20 [...] hemangioma and adenoma. Professional interpretation performed by [facility] [place] [facility] . End of diagnostic report: [id number] Signed: Sami Hogue MD 11/18/20 1115 Interpreted by: Sami HogueTranscribed by: Sami Hogue Name Value Range Interpretation Code Description Data Joselin rce(s) Supporting Document(s) ID Date Data Source [id number] 11/08/2020 12:52:00 PM EDT [address] [address] Patient Name: Sammy Cruz Exam Date: 11/08/20 : 1975 Ordering Doctor: Mary Valdez DO Attending Doctor: Mary Valdez DO CC: [facility] BILATERAL BREAST MRI EXAMINATION INDICATION: Family history of breast cancer. COMPARISON: Mammogram 11/08/2020. Prior comparison breast MRI 11/08/2017. TECHNIQUE: MRI examination of bilateral breasts was performed in standard fashion in a dedicated breast coil with multiple image sequences obtained with and without ProHance consisting of the administration of 15 from a 15 cc vial. Turbulenz was utilized for image analysis including subtraction, kinetic curve generation and MIP reconstructions. FINDINGS: There is no background parenchymal enhancement. The overall breast parenchymal composition is heterogeneous. There is no dominant mass or suspicious kei-lyjn-tqol enhancement to suggest malignancy bilaterally. No concerning [...] Professional interpretation performed at Dr. Dano Hansen [facility] . End of diagnostic report: [id number] Signed: Ernie Dale MD 11/11/20 1647 Interpreted by: Ernie DaleTranscribed by: Ernie Dale Name Value Range Interpretation Code Description Data Joselin rce(s) Supporting Document(s) ID Date Data Source [id number] 11/08/2020 11:52:00 [place] [address] Patient Name: Sammy Cruz Exam Date: 11/08/20 [...] We offer Breast MRI Imaging at our [facility] at [facility] and [facility]. The patient is scheduled for a breast MRI exam today. BI-RADS 1 - NEGATIVE Professional interpretation performed at [facility] . End of diagnostic report: [id number] Signed: Boo Quintana MD 11/14/20 1216 Interpreted by: Boo QuintanaTranscribed by: Boo Quintana Name Value Range Interpretation Code Description Data Joselin rce(s) Supporting Document(s) ID Date Data Source [id number] 09/20/2020 02:57:57 PM EDT [facility] Name Value Range Interpretation Code Description Data Joselin rce(s) Supporting Document(s) Progress Note [facility] AOPDVs5tJdTNUdFr00/SZVcyVNWxo4PiHRqyMUf1HOzfXXAiA9SgAVG7xK3nAUJ1KQvFNfBaLlKrZHE7 m [file] ICAgICAgICAgICAgICAgICAgICAgICAgICAgICAgICAgICAgICAgICAgICAgICAgICAgICAgICAgICAg ICAgICAgICAgICAgICAgICAgICAgDQogICAgICAgIC AgICAgICAgICAgICAgICAgICAgICAgICAgICAgICAgICAgICAgICAgICAgICAgICAgICAgICAgICAgIC AgICAgICAgICAgICAgICAgICAgICAgICAgICAgICAgDQogICAgICAgICAgICAgICAgICAgICAgICAgIC AgICAgICAgICAgICAgICAgICAgICAgICAgICAgICAg ICAgICAgICAgICAgICAgICAgICAgICAgICAgICAgICAgICAgICAgICAgDQogICAgICAgICAgICAgICAg ICAgICAgICAgICAgICAgICAgICAgICAgICAgICAgICAgICAgICAgICAgICAgICAgICAgICAgICAgICAg ICAgICAgICAgICAgICAgICAgICAgICAgDQogICAgIC AgICAgICAgICAgICAgICAgICAgICAgICAgICAgICAgICAgICAgICAgICAgICAgICAgICAgICAgICAgIC AgICAgICAgICAgICAgICAgICAgICAgICAgICAgICAgICAgDQogICAgICAgICAgICAgICAgICAgICAgIC AgICAgICAgICAgICAgICAgICAgICAgICAgICAgICAg ICAgICAgICAgICAgICAgICAgICAgICAgICAgICAgICAgICAgICAgICAgICAgDQogICAgICAgICAgICAg ICAgICAgICAgICAgICAgICAgICAgICAgICAgICAgICAgICAgICAgICAgICAgICAgICAgICAgICAgICAg ICAgICAgICAgICAgICAgICAgICAgICAgICAgDQogIC AgICAgICAgICAgICAgICAgICAgICAgICAgICAgICAgICAgICAgICAgICAgICAgICAgICAgICAgICAgIC AgICAgICAgICAgICAgICAgICAgICAgICAgICAgICAgICAgICAgDQogICAgICAgICAgICAgICAgICAgIC AgICAgICAgICAgICAgICAgICAgICAgICAgICAgICAg ICAgICAgICAgICAgICAgICAgICAgICAgICAgICAgICAgICAgICAgICAgICAgICAgDQogICAgICAgICAg ICAgICAgICAgICAgICAgICAgICAgICAgICAgICAgICAgICAgICAgICAgICAgICAgICAgICAgICAgICAg ICAgICAgICAgICAgICAgICAgICAgICAgICAgICAgDQ h7R8tuDWDwHCIbGR6cPUs1Jk6+AKyQRaXsPID6ngYmoG0ZOW4ql7OhAWwuPGUdl5FrDEy3BL5AVSIbIV scDZ6VOSnqpd1XHYDvDAZodGNLe7luOdHrELH4HEJxAztiHR7PMAFzF4jcoyLwHACqGFXJHNviEKLQWM gkYTNGFWLgCSZzNzMnSBjaQE3Qw1ImwOO3ZJc+Pg0K WN8gl7LpSMobRKDcFH5akv9DBFoPKqUnO6WqnlL0LYF9CVHwFk9TGHTnCXJxjYJhDcDzQEMDVmTqV6Yo tQ53LDGRVz9+DHtxedMwBknKMrE5YVQyz3SdVRr5AH5MJHRqLTz1zRQpQIWiD0Ayt1GgZt22ATRdOlsm ETYvj0ovczIbMkYJqAKndMvllJYyAR5MOPI5ZAtpIx 9nAXCwYLIuQpSdXNYGET7NNEUvPRDswORjSQWlYTOMNK9YGLzgHVP7AVIfjqWdyCDkPXtoPX3PGYSqaw QgMjUgMCBSDQo+Dv8LKO2nm5YnYEjoGcEsVX0ixo0LFWdFTnTvP7B3fCBpA3K3FSrnTq7GHAWpFVTeRh GhEJXAKMduRH7DLV3bbvI4WE7SoOEoMKJpABPivSWc GJq3F78gqUMoJSsxNY6USWR+Tiana+Vo0FDRViDRVjEZUuEtKiONPUBuAmH3LbB7FXb5LwL5ZuDT73gToq jwNpYCnaVB7IVP4xOFPiCKRZWQ2QkWQnmD2bdkRsLTYfPRYYLuKcY58skUUzQYKmIIJ2KQYoSn8KXBXr W9LiqhRtjVhhxbJfUJQgPYEFCS1CSAxrfzBahZZbdN hqIM89eYlmDS1UTm8GAqZzFI4wzy7LeHQlEj3JDFRiXQ2USZCdVMSvOJBdSAY4GIEfUhXqTQqjPANbFX JtZIJ7FIPyOSWjQE1XGrWtVYXrCav5YsCiLLXdGXYhly4VLKByVCV3RPS9XOKrVERrSWCcENalXNFgLF OwUAZ5LMZeJICbGW3JXcEoBDJrJCG0YKVjCMUsOYAq vl2YKBRfDGDkObvvVNXtVXRzCXBbWGdpSZCzHPA7Nxw6HPYdFARoOU1NBuVuCYGvBVP7YTLxZGFhFFBs me8WCTWuHXRgDGV9DXHqMANdWYGgWYvtOVWfSYCqJZT2OWVwGOWrRV2IMmVjLSQlEBC9EHndQIFvOJUk yj3EDSWeXNLcRCL2MrVoDXZcPBPqPSuxZRCsUKV9CE FaQDHfDUKeOV4DOiRtIGDxHGNtMTPnJSGqUNKhzy1DJXXxORKzEKAfVwJqFZPvBPOmWAyoGJPzXJO5Go scTVImEYTpWM2PFnXsJFHpJDD0ASHaXAOkRXPvmv8EAAVmOHLtTch4UuZxSMJuIGPkRUaiMFAqLFK5FD C4XQIjIVNuAD8XZxSwLDToIhh4NNmuOTFzQDUqgr9S FRIzMBNeZbcxXRLdLYEbYGVmLDymVVPvSJA3CvXkLBFaBZMiEO9RWxPkMQJqXvy4VIteDGZjXDHzau4C MWXfIRQyKEv2EEPpJTNnQIHuWZaqMZOmPAGyZnK5KRUpCLGdST5XBlZeJMCoIZRwTqjiIPOhSTZayl6W ODZiQBX5WUVlOcVfUAQgTIEnKHp4owZupTMoBWq3QG 0CK7FjkdBzOecURs0Si205OCM3HOXtNl5AX4juBm0mEPFuJFCLMs8ACVr6ZtT2TjarNHGdGdgiUvPpH3 ChRELrMOnpRKLqMzH0QJO+TLtxEWzgDNUsWmFaMIKsGCX8L2S7VMJrQRK1KJNtMCFaGV2zHEPZHh0+DQ pfuTIpcGzaPHWXFyUcFok5VJdeZLPSDo0T ID Date Data Source [id number] 08/20/2020 11:51:00 AM T [facility] Run: 08/20/20 1151 INTERFACED REPORT Name: Sammy Cruz Age/Sex: 45/F Location: [facility] Acct: [id number] Unit: [id number] Status: REG REF Room/Bed: Re08/15/20 Disch: Att Dr: Mary Valdez DO Spec Num: [id number] Recd: 08/16/2046 Status: JOSE Lezama Num: [id number] SpType: SURGICAL Sub Dr: Mary Valdez DO [...] (signature on file) Vitor Duke MD 08/20/20 Ross Perea Pat END OF REPORT Name Value Range Interpretation Code Description Data Joselin rce(s) Supporting Document(s) ID Date Data Source [id number] 07/22/2020 12:00:00 AM EDT [facility] Name Value Range Interpretation Code Description Data Joselin rce(s) Supporting Document(s) IDNOW COVID-19 rapid diagnostic test (nucleic acid amp lification test NAAT) [facility] This lab was ordered by [facility] and re ported by [facility]. ID Date Data Source [id number] 06/24/2020 08:30:00 AM EDT [facility] Name Value Range Interpretation Code Description Data Joselin rce(s) Supporting Document(s) Follow Up [facility] AGMYMa3nLoQNAjOlZCKyWdlDLCpbMDvzZKVwY8Z9QBxgXh2GFIuutkZjBJMcXf9+MOSpHQ4ppi9fDYVj gMy [file] oMG5EVqLHyPm2PsF4JDCUwt5avBt+2kzuYja3G+ [file] /31GzHzvOgJ4JqjXSpC407O8jnEXp/eBTw+DIRECTOR OF SOCIAL WORK/nA1Q7bfgdub2jd7NjqpgpIQefQPyxjOEPus8qPw6Iu [file] 6irozMXlL3g5VBIp9T7rMqZ7YIQJpvHPT4R0bIC5+Ana María+IC0QAZ1hSDrOYF8CMbtVjT+pdcezvR+l9ZZ [file] ALMOND BLANCHER HAND+gV8k4Ee9h909sC+MZ/Vy+4tIrfcORbBqDjoIouwW2x02Swk8JCPNiw0m3T2XbC0mUcT+jg6iUD2P [file] OtOfOWVu+RIBO9QZy5D64ZQFF//lab clerk/rgJgmgd2oEelb7P5y8n1MdH1TDvOFj/qHbTA1c24CSHtJvAoS [file] psychiatric arnp+1KojDf8kRmFd8yoVGwlvHDX87GyaUQxQwRLjyasS9x0R5rqsUuijJQ28hZuR0kTwys+ugDnuyJfJ/ [file] iok7qEcTQH3ewLcM71HHzvI0vNBrwOQiw7Q1sM4MtetChauCLZb9oBcGQs4G2c+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 Officiating/NL2qOL1/UCfLuX zSxX7j+9JrQBwByFOVinQD6LC0UcX4Koj7AAxYR8Iv MDyu8jFZWgMafY7IYYpW3oT21ujq7HPI3W9shCvBvLG3aR+z21DMaWdmh0iS3QLlFdD1lnMtonngbPNW y/AE63mlJYNkCg4krJvwowR+XQy1MyOHBBJ6JEiqvWSTBB0d3sWFzNGC8VX49AXGZsyodZm3r+gG2nGp 4E0FMf4umfWLE1o2cw4Drt8WaBHYsnvWSVoC/K9whP xIWpp1M65Lo9SXL/SS0vJYP+Q/Jw+iSpkBBZwozY/lE7rPiZgHkEbuThVKQ/GsMj1aYVMEkcWFCjVx+S 1H/EbURZ9qxNeocBIGkF18gL56bVkBFElwLhG3bMknyE/upHnYirIqsBJBDCaBSKhbQ7uAXnTP3PzUzZ wPotZMN/99QtbhLXoYmyI9PNOCfVVf1I/7oN9Jij9u q3JW1TlW05kMerWMt0VIjMCej6DBt3owE50kiv8V/1+19jCYl7xgV3BN5UHe/covgycSFtV4F67E9JLj N4U7LaVU/Msp8k6mWT5y32aPzhEYLUAP45XV99H4EfrIhk5kaFF/gKyXawJYn8tpYr2J+MX+roS2Zb7y DTqv9OvtwcYt8JvRYO281VR8kDURii+cu6VkOi4F3W ZCdLafek9L1agLvtwgqy/tVOjFcBg7MFdYzcNzmbubpDE3hYxftoh97xh37dAeiUoozolfGYBQnopbzc [file] gizjT/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 ID Date Data Source [id number] 02/05/2020 01:44:00 PM EST [facility] Run: 02/05/20 1345 INTERFACED REPORT Name: Sammy Cruz Age/Sex: 44/F Location: [facility] Acct: [id number] Unit: [id number] Status: REG REF Room/Bed: Re02/02/20 Disch: Att Dr: Mary Valdez DO Spec Num: [id number] Recd: 02/02/20-1347 Status: JOSE Lezama Num: [id number] SpType: SURGICAL Sub Dr: Mayr Valdez DO [id number] Uncertain behavior of neoplasm, skin Biopsy ProcGROSS AND MICROSCOPIC - L4 None provided Leg lesion, left anterior tibia The specimen received in formalin is labeled with the patients name and [id number] anterior [id number] consists of a single piece of skin [...] (signature on file) Vitor Duke MD 02/05/20 1644, Ross Dewey END OF REPORT Name Value Range Interpretation Code Description Data Joselin rce(s) Supporting Document(s) ID Date Data Source "" 12/13/2019 10:23:00 AM EDT [address] [address] Patient Name: Sammy Cruz Exam Date: 12/13/19 : 1975 Ordering Doctor: [...] hemangioma and adenoma. Professional interpretation performed by [facility] [place] . End of diagnostic report: [id number] Signed: Sami Hogue MD 12/13/19 1039 Interpreted by: Sami HogueTranscribed by: Sami Hogue Name Value Range Interpretation Code Description Data Joselin rce(s) Supporting Document(s) Procedure Social History Code Duration Value Status Description Data Source(s ) Smoking 11/26/2020 12:00:00 AM EDT Non Smoker completed Non Smoke r [facility] ([facility]) Alcohol intake 09/20/2020 12:00:00 AM EDT Current drinker of al cohol (finding) completed Current drinker of alcohol (finding) [facility] Tobacco use and exposure 09/20/2020 12:00:00 AM EDT Never used co mpleted Never used [facility] Smoking 09/20/2020 12:00:00 AM EDT Never smoker completed Never s [facility] Smoking 08/22/2020 12:00:00 AM EDT Never smoked tobacco (findi ng) completed Never smoked tobacco (finding) [facility] ([facility]) Smoking 08/15/2020 12:00:00 AM EDT Never smoked tobacco (findi ng) completed Never smoked tobacco (finding) [facility] ([facility]) Smoking 07/11/2020 12:00:00 AM EDT Never smoked tobacco (findi ng) completed Never smoked tobacco (finding) [facility] ([facility]) Smoking 06/12/2020 04:25:00 PM EDT Never smoked tobacco (findi ng) completed Never smoked tobacco (finding) [facility] ([facility]) Smoking 02/01/2020 12:00:00 AM EST Never smoked tobacco (findi ng) completed Never smoked tobacco (finding) [facility] ([facility]) Smoking 12/27/2019 12:00:00 AM EST Never smoked tobacco (findi ng) completed Never smoked tobacco (finding) [facility] ([facility]) Smoking 11/16/2019 04:37:33 PM EDT Never smoked tobacco (findi ng) completed Never smoked tobacco (finding) [facility] ([facility]) Vital Signs ID Date Data Source UNK Name Value Range Interpretation Code Description Data Source(s) Systolic blood pressure 116 mm[Hg] 116 mm[Hg] M [facility] ([facility]) Diastolic blood pressure 64 mm[Hg] 64 mm[Hg] [facility] ([facility]) Heart rate 77 /min 77 /min [facility] ([facility]) Oxygen saturation in Arterial blood by Pulse oximetry 100 % 100 % [facility] ([facility]) Body height 64 [in_i] 64 [in_i] [facility] ([facility]) 5'4" Body weight 124.50 [lb_av] 124.50 [lb_av] [facility] ([facility]) Body mass index (BMI) [Ratio] 21.4 kg/m2 21.4 k g/m2 [facility] ([facility]) Evans body weight 120 [lb_av] 120 [lb_av] [facility]) Body weight 56.473 kg 56.473 kg [facility] ([facility]) Body surface area Derived from formula 1.60 m2 1.60 m2 [facility] ([facility], ) Systolic blood pressure 122 mm[Hg] 122 mm[Hg] G [facility] Diastolic blood pressure 82 mm[Hg] 82 mm[Hg] [facility] Heart rate 82 /min 82 /min [facility] Body temperature 98.1 [degF] 98.1 [degF] [facility] Body weight 127.6 [lb_av] 127.6 [lb_av] [facility] Y ([facility] PhenX - pain, abdominal - type and intensity protocol 0 0 [facility] Oxygen saturation in Arterial blood by Pulse oximetry 99 % 99 % [facility] ([facility]) Inhaled oxygen flow rate 0 L/min 0 L/min [facility] ([facility]) Inhaled oxygen concentration 21 % 21 % [facility] ([facility]) Respiratory rate 18 /min 18 /min [facility] ([facility] Diastolic blood pressure 61 mm[Hg] 61 mm[Hg] [facility] ([facility] Body temperature 97.3 [degF] 97.3 [degF] GRE[facility]W AY [facility] Body weight 128 [lb_av] 128 [lb_av] [facility] PhenX - pain, abdominal - type and intensity protocol 0 0 [facility] ([facility] Oxygen saturation in Arterial blood by Pulse oximetry 100 % 100 % [facility] ([facility] Heart rate 50 /min 50 /min [facility] ([facility]) Systolic blood pressure 127 mm[Hg] 127 mm[Hg] G REENWAY ([facility] Inhaled oxygen flow rate 0 L/min 0 L/min [facility] ([facility]) Inhaled oxygen concentration 21 % 21 % [facility] ([facility]) Systolic blood pressure 114 mm[Hg] 114 mm[Hg] G REENWAY ([facility] Diastolic blood pressure 68 mm[Hg] 68 mm[Hg] [facility] ([facility]) Heart rate 72 /min 72 /min [facility] ([facility]) Heart rate rhythm 1 1 GREENWA Y [facility] Respiratory rate 18 /min 18 /min [facility] ([facility]) Body temperature 97.2 [degF] 97.2 [degF] GREENW AY ([facility]) Body height 62.5 [in_i] 62.5 [in_i] [facility] ([facility]) Body weight 129 [lb_av] 129 [lb_av] [facility] ([facility]) Body mass index (BMI) [Ratio] 23.2 kg/m2 23.2 k g/m2 [facility] ([facility]) Body surface area Derived from formula 1.60 m2 1.60 m2 ROBERT ([facility]) PhenX - pain, abdominal - type and intensity protocol 0 0 ROBERT ([facility]) Oxygen saturation in Arterial blood by Pulse oximetry 97 % 97 % [facility] ([facility]) Inhaled oxygen flow rate 0 L/min 0 L/min ROBERT ([facility]) Inhaled oxygen concentration 21 % 21 % ROBERT ([facility]) Systolic blood pressure 122 mm[Hg] 122 mm[Hg] G REEWAY ([facility]) Diastolic blood pressure 76 mm[Hg] 76 mm[Hg] [facility] ([facility]) Heart rate 76 /min 76 /min [facility] ([facility]) Heart rate rhythm 1 1 GREENWA Y ([facility]) Respiratory rate 18 /min 18 /min ROBERT ([facility]) Body temperature 99 [degF] 99 [degF] [facility] ([facility]) Body weight 126.5 [lb_av] 126.5 [lb_av] GREENWA Y ([facility]) PhenX - pain, abdominal - type and intensity protocol 0 0 ROBERT ([facility]) Oxygen saturation in Arterial blood by Pulse oximetry 99 % 99 % [facility] ([facility]) Inhaled oxygen flow rate 0 L/min 0 L/min [facility] ([facility]) Inhaled oxygen concentration 21 % 21 % [facility] ([facility]) Systolic blood pressure 132 mm[Hg] 132 mm[Hg] G REENWAY ([facility]) Diastolic blood pressure 71 mm[Hg] 71 mm[Hg] [facility] ([facility]) Heart rate 84 /min 84 /min [facility] ([facility] Respiratory rate 17 /min 17 /min ROBERT ([facility]) Body temperature 97.4 [degF] 97.4 [degF] GREENW AY ([facility]) Body weight 128 [lb_av] 128 [lb_av] [facility] PhenX - pain, abdominal - type and intensity protocol 0 0 [facility] ([facility]) Oxygen saturation in Arterial blood by Pulse oximetry 98 % 98 % [facility] ([facility]) Inhaled oxygen flow rate 0 L/min 0 L/min [facility] ([facility]) Inhaled oxygen concentration 21 % 21 % [facility] ([facility]) Systolic blood pressure 120 mm[Hg] 120 mm[Hg] G REENWAY ([facility]) PhenX - pain, abdominal - type and intensity protocol 0 0 [facility] ([facility]) Oxygen saturation in Arterial blood by Pulse oximetry 99 % 99 % [facility] ([facility]) Inhaled oxygen flow rate 0 L/min 0 L/min [facility] ([facility]) Inhaled oxygen concentration 21 % 21 % [facility] ([facility]) Diastolic blood pressure 70 mm[Hg] 70 mm[Hg] [facility] ([facility]) Heart rate 91 /min 91 /min [facility] ([facility]) Respiratory rate 18 /min 18 /min [facility] ([facility]) Body temperature 97.9 [degF] 97.9 [degF] GREENW AY ([facility]) Body weight 124 [lb_av] 124 [lb_av] [facility] ID Date Data Source [id number] 12/29/2020 12:35:03 PM [facility] Name Value Range Interpretation Code Description Data Source(s) WEIGHT RECORDED 127 lb 127 lb [facility] Body height Measured 64 in 64 in [facility] Patient Treatment Plan of Care Planned Activity Planned Date Details Description Data Source (s) Clindamycin 0.01 MG/MG Topical Gel 10/30/2020 12:00:00 AM EDT [facility] ([facility]) Benzoyl Peroxide 0.05 MG/MG Topical Gel 04/04/2020 12:00:00 AM [facility] ([facility]) Clindamycin 0.01 MG/MG Topical Gel 04/04/2020 12:00:00 AM [facility] ([facility]) Clindamycin 0.01 MG/MG Topical Gel 10/10/2019 12:00:00 AM [facility] ([facility]) Cyclobenzaprine hydrochloride 10 MG Oral Tablet 09/14/2016 12:00:00 AM [facility] ([facility]) Ibuprofen 800 MG Oral Tablet 09/14/2016 12:00:00 AM [facility] ([facility])
== END 2021-01-06 16:18 | disposition home or self-care (01) ==
LOC: M ED 10:19
DX: M25.562 Pain in left knee (principal); Z98.890 Other specified postprocedural states

== ENCOUNTER → 2022-03-25 | Outpatient (REF) | payer OTHER ==
[~2022-03-25] MED LIST changes: +OXYC-517
== END ==
LOC: M SFHCWAGY 13:04
PROVIDERS: ATTEND Nurse Practitioner Family
DX: Z12.4 Encounter for screening for malignant neoplasm of cervix (principal)
CPT/HCPCS: 87624; G0123

== ENCOUNTER → 2022-03-26 | Outpatient (CLI) | payer OTHER | LOC: M WHC 11:30 | PROVIDERS: ATTEND Nurse Practitioner | DX: N83.292 Other ovarian cyst, left side (principal) ==

== ENCOUNTER → 2023-03-16 | Outpatient (CLI) | payer OTHER | LOC: M WHC 15:50 | PROVIDERS: ATTEND Nurse Practitioner Family | DX: Z12.31 Encounter for screening mammogram for malignant neoplasm of breast (principal) ==

== ENCOUNTER → 2024-04-20 | Outpatient (REF) | payer OTHER ==
[2024-04-20 15:34] LABS: APPEARANCE, URINE CLEAR (CLEAR); BACTERIA, URINE AUTO 1+ (NEGATIVE); BILIRUBIN, URINE AUTO NEGATIVE (NEGATIVE); BLOOD, URINE BLOOD NEGATIVE (NEGATIVE); COLOR, URINE STRAW (YELLOW); GLUCOSE, URINE (UA) AUTO NEGATIVE (NEGATIVE); KETONE, URINE AUTO NEGATIVE (NEGATIVE); LEUKOCYTE ESTERASE, URINE AUTO NEGATIVE (NEGATIVE); NITRITE, URINE AUTO NEGATIVE (NEGATIVE); PROTEIN, URINE AUTO NEGATIVE (NEGATIVE); RBC, URINE AUTO 0 /HPF (0-3); SPECIFIC GRAVITY URINE AUTO 1.003 (1.002-1.035); SQUAMOUS EPITHELIAL CELL UR AU 1 /HPF (0-6); UROBILINOGEN, URINE AUTO 0.2 mg/dL (0.0-2.0); WBC, URINE AUTO 0 /HPF (0-3)
[2024-04-20 15:41] LABS: ALBUMIN 4.3 G/DL (3.2-5.2); ALKALINE PHOSPHATASE 97 U/L (35-104); ALT/SGPT 25 U/L (7.0-40); AST/SGOT 22 U/L (<34); BILIRUBIN,DIRECT 0.4 MG/DL (<0.4); BILIRUBIN,TOTAL 1.3 MG/DL (0.3-1.2); BLOOD UREA NITROGEN 12 MG/DL (9-23); C REACTIVE PROTEIN QUANTITATIV < 0.50 MG/DL (<1.0); CALCIUM LEVEL 9.2 MG/DL (8.5-10.1); CARBON DIOXIDE LEVEL 28 MMOL/L (20-31); CHLORIDE LEVEL 104 MMOL/L (98-107); CREATININE FOR GFR 0.56 MG/DL (0.55-1.30); GLOMERULAR FILTRATION RATE > 60.0 (>51); GLUCOSE, FASTING 78 MG/DL (60-100); POTASSIUM SERUM 3.8 MMOL/L (3.5-5.1); SODIUM LEVEL 141 MMOL/L (136-145); TOTAL PROTEIN 7.3 G/DL (5.7-8.2)
[2024-04-20 15:45] LABS: COMPLEMENT C3 102.7 MG/DL (90.0-170.0); COMPLEMENT C4 24.2 MG/DL (12-36)
[2024-04-20 15:48] LABS: CREATININE,RANDOM URINE 17.3 MG/DL; TOTAL PROTEIN,RANDOM URINE < 6.0 MG/DL (0.0-14.0)
[2024-04-26 08:08] LABS: PTT-LA 35 sec (<=40); dRVVT 29 sec (<=45)
[2024-04-26 17:43] LABS: COMPLEMENT TOTAL (CH50) 50 U/mL (31-60)
== END ==
LOC: M SFHCRHEU 11:01
PROVIDERS: ATTEND Internal Medicine
DX: M25.50 Pain in unspecified joint (principal); R76.8 Other specified abnormal immunological findings in serum

== ENCOUNTER → 2024-06-12 | Outpatient (CLI) | payer BC, SELFPAY | LOC: M RAD 13:55 | PROVIDERS: ATTEND Internal Medicine | DX: M25.50 Pain in unspecified joint (principal) ==

== ENCOUNTER → 2024-10-09 | Outpatient (CLI) | payer BC ==
[~2024-10-09] MED LIST changes: -IBUP-1022 PO; +IBUP600T42 PO
== END ==
LOC: M WHC 07:23
PROVIDERS: ATTEND Nurse Practitioner Family
DX: Z12.31 Encounter for screening mammogram for malignant neoplasm of breast (principal); R92.8 Other abnormal and inconclusive findings on diagnostic imaging of breast; R92.323 Mammographic fibroglandular density, bilateral breasts

== ENCOUNTER → 2024-10-09 | Outpatient (REF) | payer BC ==
[2024-10-11 14:37] LABS: HPV APTIMA Not Detected (Not Detected)
== END ==
LOC: M PLALAB 08:35
PROVIDERS: ATTEND Nurse Practitioner Family
DX: Z12.4 Encounter for screening for malignant neoplasm of cervix (principal)
CPT/HCPCS: 87624; G0123